=== PATIENT | female | born 1980 | race Caucasian/White ===

== ENCOUNTER → 2017-03-05 | Outpatient (CLI) | payer BC ==
[~2017-03-05] MED LIST: IBUP-1050 PO; MCR25 PO; MCR5 PO; PRENTAB26 PO; SLEEP AID PO
--- NOTE | 2017-03-15 10:25 | HISTORY & PHYSICAL EXAMINATION ---
DATE OF ADMISSION: 03/05/2017 CHIEF COMPLAINT: Numbness down her left leg, pelvic pain, pressure and irregular bleeding. HISTORY OF PRESENT ILLNESS: The patient is a 37-year-old 2, para 1, 1 AB. General health is good. She is on no chronic pills or medication. had a vasectomy for control, has not had a yearly visit for about 5 years, came in with symptoms of pelvic pain, discomfort, irregular spotting and abdominal pressure. Immediately on exam, she had a large pelvic mass which extended up to the level of the umbilicus. An ultrasound done on 03/05/2017 showed a large fibroid of 16.1 x 10.2 x 16.1 cm. The patient is presently being scheduled for a total abdominal hysterectomy with preservation of both ovaries. PAST MEDICAL HISTORY: She has a son age 9. ALLERGIES: CONTROL PILLS, WHICH CAUSED VOMITING. PAST SURGICAL HISTORY: She has had a hernia repair. She has had wisdom teeth removed. She had a D&C. PAST MEDICAL HISTORY: No history of rheumatic fever, heart disease, heart murmur, diabetes, tuberculosis. SOCIAL HISTORY: An occasional smoker. No history of excessive alcohol intake. 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 FAMILY HISTORY: Mom is 58, in good health. Father 63, has diabetes, heart disease. One brother in good health. One sister has Crohn disease. REVIEW OF SYSTEMS: HEAD: No symptoms of frequent or severe headaches. EYES: No symptoms of blurred vision, double vision. EARS: No symptoms of frequent ear infections, difficulty hearing. NOSE: No symptoms of frequent nosebleeds, difficulty breathing through her nose. THROAT: No symptoms of frequent or severe sore throats, difficulty swallowing. RESPIRATORY SYSTEM: No history of asthma, chest pain, shortness of breath. PHYSICAL EXAMINATION: GENERAL: Well-developed, well-nourished 37-year-old white female, alert, oriented x3 and cooperative in no acute distress, appears stated age. EYES: Conjunctivae are pink. Sclerae white. No evidence of jaundice. EARS: Had normal light reflex bilaterally. NOSE: Had normal mucosa. Septum is midline. There were no polyps. THROAT: Had no erythema or evidence of infection. Teeth are in good state of repair. HEAD: Was normocephalic, normal distribution of hair. NECK: Supple. Trachea midline. Thyroid is not enlarged. There is no adenopathy appreciated. Both carotids are of good intensity. CHEST: Clear to auscultation and percussion. No wheezes, rales or rhonchi appreciated. HEART: Regular rhythm. S1 and S2 were normal. BREASTS: Normal. ABDOMEN: Revealed a hard palpable mass up to the level of the umbilicus. PELVIC: Revealed a large hard pelvic mass filling the entire pelvis, cervix appeared normal. MUSCULOSKELETAL: Revealed no calf tenderness. IMPRESSIONS OF THIS CASE: Status post hernia repair, status post removal of wisdom teeth, status post dilation and curettage, symptomatic large uterine fibroids.
== END | disposition home or self-care (01) ==
LOC: C.PAPS 14:53
PROVIDERS: ATTEND Obstetrics & Gynecology
DX: Z01.419 Encounter for gynecological examination (general) (routine) without abnormal findings (principal)

== ENCOUNTER 2017-03-19 11:05 | Inpatient (IN) | payer BC, OTHER ==
--- NOTE | 2017-03-15 10:25 | HISTORY & PHYSICAL EXAMINATION ---
DATE OF ADMISSION: 03/19/2017 CHIEF COMPLAINT: Numbness down her left leg, pelvic pain, pressure and irregular bleeding. HISTORY OF PRESENT ILLNESS: The patient is a 37-year-old 2, para 1, 1 AB. General health is good. She is on no chronic pills or medication. had a vasectomy for control, has not had a yearly visit for about 5 years, came in with symptoms of pelvic pain, discomfort, irregular spotting and abdominal pressure. Immediately on exam, she had a large pelvic mass which extended up to the level of the umbilicus. An ultrasound done on 03/05/2017 showed a large fibroid of 16.1 x 10.2 x 16.1 cm. The patient is presently being scheduled for a total abdominal hysterectomy with preservation of both ovaries. PAST MEDICAL HISTORY: She has a son age 9. ALLERGIES: CONTROL PILLS, WHICH CAUSED VOMITING. PAST SURGICAL HISTORY: She has had a hernia repair. She has had wisdom teeth removed. She had a D&C. PAST MEDICAL HISTORY: No history of rheumatic fever, heart disease, heart murmur, diabetes, tuberculosis. SOCIAL HISTORY: An occasional smoker. No history of excessive alcohol intake. 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 FAMILY HISTORY: Mom is 58, in good health. Father 63, has diabetes, heart disease. One brother in good health. One sister has Crohn disease. REVIEW OF SYSTEMS: HEAD: No symptoms of frequent or severe headaches. EYES: No symptoms of blurred vision, double vision. EARS: No symptoms of frequent ear infections, difficulty hearing. NOSE: No symptoms of frequent nosebleeds, difficulty breathing through her nose. THROAT: No symptoms of frequent or severe sore throats, difficulty swallowing. RESPIRATORY SYSTEM: No history of asthma, chest pain, shortness of breath. PHYSICAL EXAMINATION: GENERAL: Well-developed, well-nourished 37-year-old white female, alert, oriented x3 and cooperative in no acute distress, appears stated age. EYES: Conjunctivae are pink. Sclerae white. No evidence of jaundice. EARS: Had normal light reflex bilaterally. NOSE: Had normal mucosa. Septum is midline. There were no polyps. THROAT: Had no erythema or evidence of infection. Teeth are in good state of repair. HEAD: Was normocephalic, normal distribution of hair. NECK: Supple. Trachea midline. Thyroid is not enlarged. There is no adenopathy appreciated. Both carotids are of good intensity. CHEST: Clear to auscultation and percussion. No wheezes, rales or rhonchi appreciated. HEART: Regular rhythm. S1 and S2 were normal. BREASTS: Normal. ABDOMEN: Revealed a hard palpable mass up to the level of the umbilicus. PELVIC: Revealed a large hard pelvic mass filling the entire pelvis, cervix appeared normal. MUSCULOSKELETAL: Revealed no calf tenderness. IMPRESSIONS OF THIS CASE: Status post hernia repair, status post removal of wisdom teeth, status post dilation and curettage, symptomatic large uterine fibroids. MTDD
[2017-03-15 11:03] VITALS: BMI 37.0
--- NOTE | 2017-03-15 11:38 | PAT Medication Instructions ---
Service Date Mar 15, 2017. Current Home Medication List Ibuprofen (Advil), 600 MG PO PRN [OTC sleep aid], 1 CAP PO Medication Instructions For Your Scheduled Surgery -Contact your surgeon if you plan on taking: Ibuprofen (Advil), 600 MG PO PRN - Take the following medications as scheduled the night before surgery: [OTC sleep aid], 1 CAP PO If you have any questions please call us at [phone] or [phone] or [phone]
[2017-03-15 12:18] LABS: BASO % 0.2 %; BASO ABS # 0.02 K/uL (0-0.2); EOS % 1.6 %; EOS ABS # 0.16 K/uL (0-0.5); HEMATOCRIT 33.8 % (37-47); HEMOGLOBIN 10.3 g/dL (12.0-16.0); IG# 0.01 K/uL (0.00-0.02); LYMPH % 26.4 %; LYMPH ABS # 2.56 K/uL (1.2-3.4); MEAN CELL VOLUME 74.4 fL (80-100); MEAN CORPUSCULAR HEMOGLOBIN 22.7 pg (25-34); MEAN CORPUSCULAR HGB CONC 30.5 g/dl (32-36); MEAN PLATELET VOLUME 9.3 fL (7.4-10.4); MONO % 5.2 %; NEUT % 66.5 %; NEUT ABS # 6.45 K/uL (1.4-6.5); PLATELET COUNT 325 K/uL (130-400); RED CELL DISTRIBUTION WIDTH CV 17.7 % (11.5-14.5); RED CELL DISTRIBUTION WIDTH SD 47.9 fL (36.4-46.3)
[2017-03-15 12:33] LABS: PTT PATIENT 25.4 SECONDS (21.0-31.0)
[2017-03-15 13:36] LABS: CALCIUM 8.9 mg/dl (8.5-10.1); CREATININE 0.56 mg/dl (0.60-1.20)
[~2017-03-19] VITALS: Ht 155.6 cm; Wt 90.6 kg
[2017-03-19] VITALS (10 sets, daily range): BP systolic 91–141; BP diastolic 56–91; PULSE 50–74; TEMP 36.5–36.7; O2SAT 95–99; Ht 155.6 cm; Wt 90.6 kg
[~2017-03-19 11:05] MED LIST changes: +CEFOXITIN IV 2,000 MG in DEXTROSE 5% 50ML 50 ML IV SCH; +LACTATED RINGER'S 1000ML 1,000 ML IV SCH; -MCR25 PO; -MCR5 PO; -PRENTAB26 PO
--- NOTE | 2017-03-19 11:49 | History & Physical Bridge Note ---
H&P Re-Evaluation Bridge Note: I have examined the patient, reviewed the History & Physical and in the interval since the performance of the History & Physical I have noted the following changes of clinical significance: No changes noted
[2017-03-19] MEDS ORDERED: METOPROLOL TARTRATE 1 MG/ML VIAL ONE (12:08)
[2017-03-19] MEDS ORDERED: MIDAZOLAM HCL 1 MG/ML 2ML VIAL ONE (12:09)
[2017-03-19] MEDS ORDERED: PROPOFOL IV EMULSION 10 MG/ML 20 ML VIAL IV ONE (12:10)
[2017-03-19] MEDS ORDERED: DEXAMETHASONE SOD INJ 4 MG/ML VIAL ONE (12:12)
[2017-03-19] MEDS ORDERED: ONDANSETRON INJ 2 MG/ML 2 ML VIAL ONE (12:12)
[2017-03-19] MEDS ORDERED: ROCURONIUM BROMIDE 10 MG/ML 5 ML VIAL IV ONE ×3 (12:12→14:11)
[2017-03-19] MEDS ORDERED: LIDOCAINE HCL 2% 2 ML VIAL (20MG/ML) ONE (12:12)
[2017-03-19] MEDS ORDERED: MORPHINE SULFATE 1MG/1ML 30ML VIAL IV ONE (12:27)
[2017-03-19] MEDS ORDERED: FENTANYL CITRATE INJ 50 MCG/1 ML 2 ML VIAL ONE ×4 (12:46→15:44)
[2017-03-19] MEDS ORDERED: LACTATED RINGER'S 1000ML 500 ML IV PRN (13:53)
[2017-03-19] MEDS ORDERED: NALOXONE HCL INJ 1 MG in SODIUM CHLORIDE 0.9% 1000ML 1,000 ML IV PRN (13:53)
[2017-03-19] MEDS ORDERED: NALOXONE HCL INJ 0.08 MG in SYRINGE 1.8 ML IV PRN (13:53)
[2017-03-19] MEDS ORDERED: SODIUM CHLORIDE 0.9% 1000ML 1,000 ML IV PRN (13:53)
[2017-03-19] MEDS ORDERED: DiphenhydrAMINE HCL 50 MG/ML VIAL IV PRN (14:00)
[2017-03-19] MEDS ORDERED: NALBUPHINE HCL INJ 10 MG/ML AMP IV PRN (14:00)
[2017-03-19] MEDS ORDERED: EpHEDrine SULFATE INJ 50 MG/ML AMP IV PRN ×2 (14:00)
[2017-03-19] MEDS ORDERED: KETOROLAC TROMETHAMINE 30 MG/ML VIAL IV. PRN (14:00)
[2017-03-19] MEDS ORDERED: NO NARCOTICS OR SEDATIVES SCH (14:00)
[2017-03-19] MEDS ORDERED: MoRPHine SULFATE 2 MG/ML CARP IV PRN (14:00)
[2017-03-19] MEDS ORDERED: FENTANYL CITRATE INJ 50 MCG/1 ML 2 ML VIAL IV PRN (14:00)
[2017-03-19] MEDS ORDERED: ONDANSETRON INJ 2 MG/ML 2 ML VIAL IV PRN ×2 (14:00)
[2017-03-19] MEDS ORDERED: NALOXONE HCL 0.4 MG/1 ML VIAL/CARP IV PRN ×2 (14:00)
[2017-03-19] MEDS ORDERED: HYDROmorphone INJ 2 MG/ML SYR/VIAL IV PRN (14:00)
[2017-03-19] MEDS ORDERED: LABETALOL HCL IV 5 MG/ML 20ML IV PRN (14:00)
[2017-03-19] MEDS ORDERED: MoRPHine SULFATE PF 1 MG/ML 10 ML AMP/VIAL EPI PRN (14:00)
[2017-03-19] MEDS ORDERED: PHENYLEPHRINE 100MCG/ML 5ML SYR IV PRN (14:00)
[2017-03-19] MEDS ORDERED: MEPERIDINE HCL 25 MG/ML CARP IV PRN ×2 (14:00)
[2017-03-19] MEDS ORDERED: ATROPINE SULFATE 0.1 MG/ML 5ML SYR IV PRN (14:00)
[2017-03-19] MEDS ORDERED: FLUMAZENIL 0.1 MG/1 ML 10 ML VIAL IV PRN (14:00)
[2017-03-19] MEDS ORDERED: NEOSTIGMINE METHYLSULFATE 5 MG/5 ML SYR ONE (14:47)
[2017-03-19] MEDS ORDERED: GLYCOPYRROLATE INJ 0.2 MG/ML VIAL ONE (14:47)
[2017-03-19] MEDS ORDERED: ACETAMINOPHEN 1000 MG/100 ML IV IV ONE (14:58)
[2017-03-19] MEDS ORDERED: D5W AND LACTATED RINGERS 1,000 ML IV SCH (15:51)
--- NOTE | 2017-03-19 15:56 | [facility] Post Operative Brief Note ---
Immediate Operative Summary Operative Date Mar 19, 2017. Pre-Operative Diagnosis Symptomatic Large Uterine Fibroids Post-Operative Diagnosis Large uterine fibroid, Endometrioma of cul de sac Procedure(s) Performed Total Abdominal Hysterectomy Surgeon Dr. Rivera Oil Dispatcher Surgeon(s) Dr. Robles Estimated Blood Loss 400ml Findings Consistent with Post-Op Diagnosis endometrioma cul de sac Specimens a. uterus/cervix sent at 1520 to lab Drains avel drain in the vaginal cuff Anesthesia Type General Regional Complication(s) none Disposition Disposition: Recovery Room / PACU
[2017-03-19] MEDS ORDERED: SENNA 8.6 MG TAB PO PRN (16:00)
[2017-03-19] MEDS ORDERED: BISACODYL 10 MG SUPP PR PRN (16:00)
[2017-03-19] MEDS ORDERED: MAGNESIUM HYDROXIDE SUSP 30 ML UDC PO PRN (16:00)
[2017-03-19] MEDS ORDERED: HYDROmorphone INJ 1 MG/ML SYR ONE (16:20)
--- NOTE | 2017-03-19 16:52 | Anesthesiology Progress Note ---
Anesthesia Post Op Note Date & Time Mar 19, 2017 at 16:52 Vital Signs Pain Intensity: 3 Vital Signs Past 12 Hours Date Time Temp Pulse Resp B/P (MAP) Pulse Ox O2 Delivery O2 Flow Rate FiO2 03/19/17 16:26 115/64 03/19/17 16:23 58 17 98 03/19/17 16:23 58 17 03/19/17 16:21 117/59 03/19/17 16:18 55 26 03/19/17 16:18 54 26 95 03/19/17 16:16 116/68 03/19/17 16:13 56 21 03/19/17 16:13 56 21 98 03/19/17 16:11 118/74 03/19/17 16:08 56 20 97 03/19/17 16:08 56 20 03/19/17 16:07 56 17 98 03/19/17 16:07 55 17 03/19/17 16:07 56 17 98 03/19/17 16:07 55 17 03/19/17 16:06 115/78 03/19/17 16:06 115/78 03/19/17 16:02 60 17 03/19/17 16:02 60 17 97 03/19/17 16:02 60 17 97 03/19/17 16:02 60 17 03/19/17 16:01 127/76 03/19/17 16:01 127/76 03/19/17 15:57 71 17 03/19/17 15:57 70 17 100 03/19/17 15:57 71 17 03/19/17 15:57 70 17 100 03/19/17 15:56 130/68 03/19/17 15:56 130/68 03/19/17 15:52 65 129 03/19/17 15:52 65 129 03/19/17 15:52 65 129 98 03/19/17 15:52 65 129 98 03/19/17 15:50 113/67 03/19/17 15:50 113/67 03/19/17 15:49 36.4 61 8 113/67 95 Oxymask 10 03/19/17 15:49 110/63 03/19/17 15:49 110/63 03/19/17 11:26 36.7 74 16 141/91 98 Room Air Notes Mental Status: alert / awake / arousable, participated in evaluation Pt Amnestic to Procedure: Yes Nausea / Vomiting: adequately controlled Pain: adequately controlled Airway Patency, RR, SpO2: stable & adequate BP & HR: stable & adequate Hydration State: stable & adequate Anesthetic Complications: no major complications apparent
--- NOTE | 2017-03-19 18:16 | OPERATIVE REPORT ---
DATE OF OPERATION: 03/19/2017 PROCEDURE: Total abdominal hysterectomy, suspension of vaginal cuff. SURGEON: Dr. Rivera. CONCRETE PRECAST MOULDER: Dr. Robles. ESTIMATED BLOOD LOSS: 400 mL. ANESTHESIA: General with spinal narcotics. OPERATIVE FINDINGS AND PROCEDURE: The patient was brought to the OR table, correctly identified by armband and conversation. Perineum and vagina were painted with Betadine solution. A Presley catheter was inserted aseptically in the bladder connected to gravity drainage. Compression stockings were applied. The lower abdomen up to the chest was painted with an alcohol based sterilizing solution, draped in usual sterile fashion. Pelvic mass was palpable at the level of the umbilicus. A midline incision was made and carried down to the anterior fascia by sharp dissection. Hemostasis was secured by electrocauterization. The fascia was incised in the midline. The recti muscles were . Peritoneum was carefully raised and entered. A large fibroid uterus could barely be delivered through the incision. We had actually extended the incision by cutting the fascia up around the umbilicus. We then used an O'Dago-O'Suárez self-retaining retractor to help provide adequate exposure. Exposure was extremely difficult, the fibroid was very vascular. We had to ligate the round ligaments on either side distally and proximally cut them and then ligate the stumps of the ovarian ligament and tube distally and proximally with silk ties, cut them. We had trouble with the stumps bleeding both the distal and proximal stumps and lost a little bit more than average blood. We then used blunt dissection to push the uterine vessels down. We made an incision above the vesicouterine fold, advanced the bladder out of the operative field and struggled to lift the uterus out of the pelvis, it was somewhat fixed, but we were able to get down around the base of the fibroid right up against the cervix on both the right and left side and doubly clamped with large Karli clamps. We then triply ligated the stumps and then cut them. Hemostasis was now good. We used an electric knife to excise the specimen consisting of the fundus to the uterus with the huge fibroids. Now we were able to visualize the cervix. We grasped the cervix with a double tooth tenaculum and that there was a good 2-3 inches of cervix left; however, the sigmoid colon was attached to the posterior portion of the cervix due to a large endometrioma. We cut the peritoneum posteriorly and anteriorly, advanced the bladder off and dissected posteriorly and then used an electric knife to enter the vagina anteriorly and then carried around the cervix, thus excising the cervix. We were safe distance from the bowel. We then suture ligated the angles of the vaginal cuff to the stumps of the cardinal ligaments on each side with a chromic gut suture. We then approximated the anterior and posterior vaginal cuff on each angle with a chromic gut suture. whipstitched open the center of the vaginal cuff and then put a Nelson drain with a safety pin in through it for drainage. Also, there was a part of an endometrioma posteriorly in the vagina, we just drained it by making a hole with an electric knife and then suctioned out the chocolate fluid. Following this, we religated the stumps of the adnexa then suture ligated the round ligaments into the vaginal cuff and tied them up then approximated the peritoneum front to back from the right adnexa to the center, thus elevating the adnexa out of the cul-de-sac and the same thing from the left side to the center and then tied the 2 sutures together. The end of the Nelson drain was in the cul-de-sac. We washed everything clear. Hemostasis was good. We removed all the packs, careful anatomical approximation of the anterior abdominal wall was performed. Peritoneum was closed with a mattress suture of chromic catgut, fascia was closed with a running suture of PDS, one suture anchored at the bottom of the defect, the other anchored at the top of the defect, wide lateral bites run from the top to the middle and from the bottom up to the middle and then tied to each other. SubQ was approximated with a running plain. Skin edges were approximated with a mattress silk and emilie. I attest to the content of the Intraoperative Record and any orders documented therein. Any exception s are noted below.
[2017-03-19] MEDS ORDERED: IV FLUIDS COMPLETED PRN (23:45)
[2017-03-20] VITALS (12 sets, daily range): BP systolic 109–121; BP diastolic 68–73; PULSE 62–76; TEMP 36.7–36.8; O2SAT 96–98
[2017-03-20] MEDS ORDERED: DC INTRASPINAL MORPHINE ONE (06:30)
[2017-03-20] MEDS ORDERED: KETOROLAC TROMETHAMINE 30 MG/ML VIAL IV. PRN (06:31)
[2017-03-20] MEDS ORDERED: MEPERIDINE HCL 50 MG/ML CARP IV PRN ×2 (06:31)
[2017-03-20 06:36] LABS: HEMATOCRIT 32.9 % (37-47); HEMOGLOBIN 9.8 g/dL (12.0-16.0); IG# 0.02 K/uL (0.00-0.02); LYMPH % 11.8 %; MEAN CELL VOLUME 75.1 fL (80-100); MEAN CORPUSCULAR HEMOGLOBIN 22.4 pg (25-34); MEAN CORPUSCULAR HGB CONC 29.8 g/dl (32-36); MEAN PLATELET VOLUME 9.1 fL (7.4-10.4); MONO % 5.1 %; NEUT % 82.9 %; PLATELET COUNT 309 K/uL (130-400); RED CELL DISTRIBUTION WIDTH CV 17.6 % (11.5-14.5); RED CELL DISTRIBUTION WIDTH SD 48.5 fL (36.4-46.3); WHITE BLOOD COUNT 11.82 K/uL (4.8-10.8)
--- NOTE | 2017-03-20 09:14 | Progress Note ---
Subjective Mar 20, 2017. Subjective conversation w/ patient Ambulation: ambulating normally Voiding: no voiding problems Passing Gas: Yes Diet Tolerance: Clear Liquids Lochia: Small Review of Systems Constitutional: + fever Objective Vital Signs Date Time Temp Pulse Resp B/P (MAP) Pulse Ox O2 Delivery O2 Flow Rate FiO2 03/20/17 08:00 96 Room Air 03/20/17 06:00 20 98 03/20/17 05:00 20 98 03/20/17 04:00 20 98 03/20/17 03:00 36.7 62 20 109/69 (82) Room Air 03/20/17 03:00 98 Nasal Cannula 2.0 03/20/17 02:00 20 98 03/20/17 01:00 20 98 03/20/17 00:00 20 98 03/19/17 23:30 Nasal Cannula 2.0 03/19/17 23:30 36.5 50 20 105/66 (79) Room Air 03/19/17 22:16 18 96 03/19/17 21:15 18 96 03/19/17 20:15 16 96 03/19/17 20:15 36.5 53 16 100/65 (77) 96 Nasal Cannula 2.0 03/19/17 19:15 18 97 03/19/17 19:15 59 18 105/71 (82) 97 Room Air 03/19/17 18:15 16 95 03/19/17 18:15 54 16 108/70 (83) 95 Nasal Cannula 2.0 03/19/17 17:45 54 20 91/56 (68) 95 Nasal Cannula 2.0 03/19/17 17:15 96 Nasal Cannula 2.0 03/19/17 17:15 20 96 03/19/17 17:15 96 Nasal Cannula 2.0 03/19/17 17:15 36.5 62 20 102/66 (78) 96 Room Air 03/19/17 17:02 54 21 03/19/17 17:02 55 21 97 03/19/17 17:01 107/61 03/19/17 16:57 51 19 99 03/19/17 16:57 52 19 03/19/17 16:56 111/59 03/19/17 16:52 53 15 03/19/17 16:52 53 15 97 03/19/17 16:51 109/62 03/19/17 16:48 36.4 51 17 109/62 (71) 96 Nasal Cannula 2 03/19/17 16:47 54 24 03/19/17 16:47 54 24 97 03/19/17 16:46 106/63 03/19/17 16:42 52 11 96 03/19/17 16:42 52 11 03/19/17 16:41 109/63 03/19/17 16:37 52 14 03/19/17 16:37 53 14 94 03/19/17 16:36 113/66 03/19/17 16:32 88 17 96 03/19/17 16:32 79 17 03/19/17 16:31 109/70 03/19/17 16:27 62 16 03/19/17 16:27 61 16 97 03/19/17 16:26 115/64 03/19/17 16:23 58 17 98 03/19/17 16:23 58 17 03/19/17 16:21 117/59 03/19/17 16:18 55 26 03/19/17 16:18 54 26 95 03/19/17 16:16 116/68 03/19/17 16:13 56 21 03/19/17 16:13 56 21 98 03/19/17 16:11 118/74 03/19/17 16:08 56 20 97 03/19/17 16:08 56 20 03/19/17 16:07 56 17 98 03/19/17 16:07 55 17 03/19/17 16:07 56 17 98 03/19/17 16:07 55 17 03/19/17 16:06 115/78 03/19/17 16:06 115/78 03/19/17 16:02 60 17 03/19/17 16:02 60 17 97 03/19/17 16:02 60 17 97 03/19/17 16:02 60 17 03/19/17 16:01 127/76 03/19/17 16:01 127/76 03/19/17 15:57 71 17 03/19/17 15:57 70 17 100 03/19/17 15:57 71 17 03/19/17 15:57 70 17 100 03/19/17 15:56 130/68 03/19/17 15:56 130/68 03/19/17 15:52 65 129 03/19/17 15:52 65 129 03/19/17 15:52 65 129 98 03/19/17 15:52 65 129 98 03/19/17 15:50 113/67 03/19/17 15:50 113/67 03/19/17 15:49 36.4 61 8 113/67 95 Oxymask 10 03/19/17 15:49 110/63 03/19/17 15:49 110/63 03/19/17 11:30 36.5 50 20 105/66 (79) 99 Nasal Cannula 2.0 03/19/17 11:26 36.7 74 16 141/91 98 Room Air Physical Exam General Appearance: WELL-APPEARING Respiratory/Chest: lungs clear Abdomen: non tender, + abnormal bowel sounds Incision Description: Clean, Dry & Intact Extremities: no pedal edema, no calf tenderness Laboratory Results Last 24 Hours Test 03/20/17 06:23 White Blood Count 11.82 K/uL Red Blood Count 4.38 M/uL Hemoglobin 9.8 g/dL Hematocrit 32.9 % Mean Corpuscular Volume 75.1 fL Mean Corpuscular Hemoglobin 22.4 pg Mean Corpuscular Hemoglobin Concent 29.8 g/dl Platelet Count 309 K/uL Mean Platelet Volume 9.1 fL Neutrophils (%) (Auto) 82.9 % Lymphocytes (%) (Auto) 11.8 % Monocytes (%) (Auto) 5.1 % Eosinophils (%) (Auto) 0.0 % Basophils (%) (Auto) 0.0 % Neutrophils # (Auto) 9.80 K/uL Lymphocytes # (Auto) 1.40 K/uL Monocytes # (Auto) 0.60 K/uL Eosinophils # (Auto) 0.00 K/uL Basophils # (Auto) 0.00 K/uL RDW Standard Deviation 48.5 fL RDW Coefficient of Variation 17.6 % Immature Granulocyte % (Auto) 0.2 % Immature Granulocyte # (Auto) 0.02 K/uL Assessment and Plan Post-Op Day#: 1 Continue Routine Care: bandage removed hypoactive bowel sounds
[2017-03-20] MEDS: ONDANSETRON INJ 2 MG/ML 2 ML VIAL IV PRN (11:47)
[2017-03-20] MEDS: IBUPROFEN 600 MG TAB PO PRN (11:49)
[2017-03-20] MEDS: OXYCODONE/ACETAMINOPHEN 5-325 TAB PO PRN (11:53)
[2017-03-21] MEDS: IBUPROFEN 600 MG TAB PO PRN ×3 (02:50→20:57)
[2017-03-21] MEDS: ONDANSETRON INJ 2 MG/ML 2 ML VIAL IV PRN (02:51)
[2017-03-21] MEDS: OXYCODONE/ACETAMINOPHEN 5-325 TAB PO PRN ×2 (03:27→20:59)
[2017-03-21 06:49] LABS: BASO % 0.2 %; BASO ABS # 0.02 K/uL (0-0.2); EOS % 0.8 %; EOS ABS # 0.07 K/uL (0-0.5); HEMATOCRIT 26.8 % (37-47); HEMOGLOBIN 8.2 g/dL (12.0-16.0); IG# 0.02 K/uL (0.00-0.02); LYMPH % 31.6 %; LYMPH ABS # 2.93 K/uL (1.2-3.4); MEAN CELL VOLUME 75.1 fL (80-100); MEAN CORPUSCULAR HGB CONC 30.6 g/dl (32-36); MONO ABS # 0.56 K/uL (0.11-0.59); NEUT % 61.2 %; NEUT ABS # 5.68 K/uL (1.4-6.5); PLATELET COUNT 276 K/uL (130-400); RED CELL DISTRIBUTION WIDTH SD 49.3 fL (36.4-46.3); WHITE BLOOD COUNT 9.28 K/uL (4.8-10.8)
[2017-03-21 07:55] VITALS: BP 126/89; PULSE 65; TEMP 36.7; O2SAT 97
--- NOTE | 2017-03-21 10:48 | Progress Note ---
Subjective Mar 21, 2017. Subjective conversation w/ patient Ambulation: ambulating normally Voiding: no voiding problems Passing Gas: Yes Diet Tolerance: Regular Diet Lochia: Small Review of Systems Constitutional: + fever Objective Vital Signs Date Time Temp Pulse Resp B/P (MAP) Pulse Ox O2 Delivery O2 Flow Rate FiO2 03/21/17 07:55 65 16 126/89 (101) 97 Room Air 03/21/17 07:55 Room Air 03/20/17 23:20 98 Nasal Cannula 2.0 03/20/17 17:14 97 Room Air 03/20/17 16:10 Room Air 03/20/17 16:10 36.8 76 18 112/73 (86) Room Air 03/20/17 11:50 36.7 68 18 120/68 (85) 98 Room Air Physical Exam General Appearance: WELL-APPEARING Respiratory/Chest: lungs clear Abdomen: normal bowel sounds, non tender Incision Description: Clean, Dry & Intact Extremities: no pedal edema, no calf tenderness Laboratory Results Last 24 Hours Test 03/21/17 06:19 White Blood Count 9.28 K/uL Red Blood Count 3.57 M/uL Hemoglobin 8.2 g/dL Hematocrit 26.8 % Mean Corpuscular Volume 75.1 fL Mean Corpuscular Hemoglobin 23.0 pg Mean Corpuscular Hemoglobin Concent 30.6 g/dl Platelet Count 276 K/uL Mean Platelet Volume 9.0 fL Neutrophils (%) (Auto) 61.2 % Lymphocytes (%) (Auto) 31.6 % Monocytes (%) (Auto) 6.0 % Eosinophils (%) (Auto) 0.8 % Basophils (%) (Auto) 0.2 % Neutrophils # (Auto) 5.68 K/uL Lymphocytes # (Auto) 2.93 K/uL Monocytes # (Auto) 0.56 K/uL Eosinophils # (Auto) 0.07 K/uL Basophils # (Auto) 0.02 K/uL RDW Standard Deviation 49.3 fL RDW Coefficient of Variation 18.0 % Immature Granulocyte % (Auto) 0.2 % Immature Granulocyte # (Auto) 0.02 K/uL Hypochromasia PRESENT Anisocytosis PRESENT Assessment and Plan Post-Op Day#: 2 Continue Routine Care: avel drain removed hgb 8.2
[2017-03-21] MEDS: SIMETHICONE 80 MG CHEW PO PRN ×2 (13:14→20:57)
[2017-03-21 15:30] VITALS: BP 131/84; PULSE 75; TEMP 36.5; O2SAT 97
[2017-03-22 00:45] VITALS: BP 127/79; PULSE 76; TEMP 36.5; O2SAT 98
[2017-03-22 04:20] VITALS: BP 117/76; PULSE 63; TEMP 36.5; O2SAT 97
[2017-03-22 08:25] VITALS: BP 121/78; PULSE 62; TEMP 36.9; O2SAT 97
[2017-03-22] MEDS: IBUPROFEN 600 MG TAB PO PRN (08:40)
[2017-03-22] MEDS: SIMETHICONE 80 MG CHEW PO PRN (08:42)
--- NOTE | 2017-03-22 09:26 | Progress Note ---
Subjective Mar 22, 2017. Subjective conversation w/ patient Ambulation: ambulating normally Voiding: no voiding problems Passing Gas: Yes Diet Tolerance: Regular Diet Lochia: Small Review of Systems Constitutional: + fever Objective Vital Signs Date Time Temp Pulse Resp B/P (MAP) Pulse Ox O2 Delivery O2 Flow Rate FiO2 03/22/17 04:20 36.5 63 16 117/76 (90) 97 Room Air 03/22/17 00:45 36.5 76 18 127/79 (95) 98 Room Air 03/22/17 00:45 98 Room Air 03/21/17 15:30 36.5 75 18 131/84 (100) 97 Room Air 03/21/17 15:30 Room Air Physical Exam General Appearance: WELL-APPEARING Respiratory/Chest: lungs clear Abdomen: normal bowel sounds, non tender Incision Description: Clean, Dry & Intact Extremities: no pedal edema, no calf tenderness Assessment and Plan Post-Op Day#: 3
--- NOTE | 2017-03-22 09:28 | Discharge Instructions ---
Discharge Instructions Date of Service Mar 22, 2017. Admission Reason for Admission: Large Uterine Fibroid Discharge Discharge Diagnosis / Problem: hgb 8.2 large fibroid Discharge Goals Goal(s): Routine recovery after surgery Activity Recommendations Activity Limitations: as noted below ACTIVITY RECOMMENDATIONS: * Gradual return to full activity over next 2-3 weeks. * No heavy lifting over next 2-3 weeks. * Nothing in the vagina (no intercourse, tampons, or douching) for 4 weeks * You may walk up and down steps as necessary. * You may drive a car in 2 weeks. * Hot shower or tub bath daily. SPECIAL CARE INSTRUCTIONS: * Check temperature twice daily for one week. Report any elevation over 100.4 degrees Fahrenheit (38.0 degrees Celsius). * Call your doctor if bleeding becomes heavier than the heaviest part of your period - saturating a sanitary pad within an hour. * If you develop a red, hard, warm swollen lump on your incision or if you develop any separation of or drainage from your incision, notify your doctor. . Current Hospital Diet Patient's current hospital diet: Regular Diet Discharge Diet Recommended Diet: Regular Diet Procedures Procedures Performed: Total Abdominal Hysterectomy Pending Studies Studies pending at discharge: no Medical Emergencies . Who to Call and When: Medical Emergencies: If at any time you feel your situation is an emergency, please call 911 immediately. . Non-Emergent Contact Non-Emergency issues call your: Rice Cleaning Machine Tender Call Non-Emergent contact if: temperature is above 100.5 . . "Provider Documentation" section prepared by Foreign Rivera. . VTE Core Measure Inpt VTE Proph given/why not?: Treatment not indicated
--- NOTE | 2017-03-22 09:45 | DISCHARGE SUMMARY ---
Sasha Amaya, 37-year-old 2, para 1 admitted for a large symptomatic uterine fibroid which was causing heavy vaginal bleeding, pelvic pain and pressure and actually pain down her leg. Her preoperative hemoglobin was 10.3, hematocrit 33.8. The day of admission, she was taken to the OR where through a midline incision, an extremely large fibroid uterus was delivered and then removed along with the cervix, both ovaries were left in. There was an endometrioma in the cul-de-sac which involved the large bowel was partially drained at the time of surgery. A Forrest drain was placed in the vaginal cuff. Postoperatively, her hemoglobin fell to 8.2, hematocrit 26.8. It did require about 2 days for bowel sounds to return to normal. She remained afebrile throughout her postoperative course. At the time of discharge, she was ambulating well, eating well, passing gas. Pain was well controlled with a combination of Percocet and Motrin. The pathology report came back and it revealed a benign fibroid over 1200 grams, 19 cm in length. She was given prescriptions for Percocet and Motrin for pain control and told to call the office if she had a temperature over 100 or any heavy vaginal bleeding, return to the office for emilie.
[2017-03-22 10:23] VITALS: BP 121/78; PULSE 62; TEMP 36.9; O2SAT 97
== END 2017-03-22 12:05 | disposition home or self-care (01) | DRG 743 ==
LOC: C.ACU 11:05 → C.OBG 15:54 → ENRESERV 16:44 → OBSVTOIN 18:59
PROVIDERS: ADMIT Obstetrics & Gynecology; ATTEND Obstetrics & Gynecology
PROC: 0UT90ZZ Resection of Uterus, Open Approach (ICD-10-PCS; principal; 2017-03-19 12:30)
PROC: 0UTC0ZZ Resection of Cervix, Open Approach (ICD-10-PCS; principal; 2017-03-19 12:30)
DX: D25.9 Leiomyoma of uterus, unspecified (principal); N80.9 Endometriosis, unspecified

== ENCOUNTER 2024-07-01 10:43 | Inpatient (IN) ==
--- NOTE | 2024-07-01 11:08 | Emergency Department Note ---
Impression & Plan Shingles, Vomiting, Abdominal pain, Chest pain, Back pain ED Provider Note NAME: OLGA GUTIERREZ AGE: 44 SEX: F : 1980 ARRIVES VIA: Walk-In INFORMANT: Patient ED PROVIDER(S): Eduardo Vela DO CHIEF COMPLAINT: Nausea, vomiting, abdominal pain HPI: Patient is a 44-year-old female with a past medical history of fibroids who presents to the ER for initially a rash which started last about 5 days ago. Rash initially started on the back and is on the left anterior chest wall. She notes it is painful. Feels like the whole left side hurts in a strip. Does hurt to light touch. Denies any chest pain or shortness of breath other than the pain on the left upper chest with the rashes. Admits to belly pain associate with nausea and vomiting. She has been unable to keep any liquids down or food down. She notes that she has not left bed in the past 4 to 5 days. She was seen at [place] as well as her PCP. No dysuria, urgency, or frequency. No other exacerbating or remitting factors. She also does admit to a headache. No neck stiffness. She feels very weak and rundown. ADDITIONAL HISTORY OBTAINED: Friend who is present bedside notes that the patient feels unsafe being at home. Chronic Medical/Social Conditions Affecting Care: Per HPI PAST MEDICAL HISTORY:See Below PAST SURGICAL HISTORY:See Below FAMILY HISTORY:See Below SOCIAL HISTORY:See Below HOME MEDICATIONS:See Below ALLERGIES:See Below VITALS:See Below PHYSICAL EXAMINATION: GENERAL: Sitting up in bed, alert, well appearing, well nourished, no distress, non-toxic EYE EXAM: normal conjunctiva. PERRL and EOM's grossly intact. OROPHARYNX: mucous membranes are moist NECK: supple, no nuchal rigidity, no adenopathy, non-tender LUNGS: Clear to auscultation. Normal chest wall mechanics HEART: no murmurs, S1 normal and S2 normal ABDOMEN: abdomen soft, non-tender, normo-active bowel sounds, no masses, no rebound or guarding. BACK: Back is symmetrical on inspection and there is no deformity, no midline tenderness, no CVA tenderness. SKIN: Rash over the left breast she does appear to be slightly vesicle in nature and a small subtle rash on the left back with erythematous base UPPER EXTREMITIES: upper extremities are grossly normal. LOWER EXTREMITIES: No pitting edema. NEURO EXAM: Normal sensorium, cranial nerves II-XII grossly intact, normal speech, no gross weakness of arms, no gross weakness of legs. MEDICAL DECISION MAKING: Patient is a 44-year-old female who presents to the ER for multiple complaints which include back pain, chest pain, abdominal pain, nausea vomiting, weakness, diffuse myalgias arthralgias and a headache. IV was established and blood work was obtained. Labs showed faint leukocytosis but no anemia. BMP with mild hypokalemia 3.2. LFTs bilirubin and lipase was unremarkable. UA was clean. was negative. Lyme was negative. On exam patient does appear to have area of erythema on the left chest wrapping around to the left back with some vesicles and some scabbed over regions which I believe is consistent with shingles. Patient was given oral valacyclovir. Ordered IV potassium. Patient was also given fluids, IV Zofran and IV Phenergan. She was also given IV Toradol. She does not take any blood thinners. Case was discussed with the hospitalist for further evaluation management treatment. She initially declined an LP but eventually was agreeable after discussion in agreement that this would be done under IR with only 1 stick. Patient has had no fevers or nuchal rigidity however I do feel this is prudent as she has a headache with persistent vomiting. I discussed with Emiliano Murillo from interventional radiology and he will take her over. Case was discussed with Tobi Torre for admission and further evaluation. Please see the hospitalist note for further details. Consults/Care Managements Discussions: Per MDM Triage Nursing notes reviewed. Limited review of prior medical records performed Vital Signs: reviewed and remarkable for no significant abnormalities Differential diagnosis: Differential diagnoses includes but is not limited to gastritis, peptic ulcer disease, GERD, gallbladder disease, pancreatitis, small bowel obstruction, appendicitis, diverticulitis, hernia, urinary tract infection, torsion, /ectopic (if female), perforation, trauma, infectious. ER treatment provided: See below Diagnostics interpreted by me include EKG and cardiac monitoring as listed below: -Cardiac Monitoring: An order was placed for continuous cardiac monitoring. The monitor shows a rate of 70 with sinus rhythm. -ECG: none -Laboratory studies:Interpreted by me as stated above in MDM and shown below. Imaging studies: Xrays: As interpreted by me:none CTs show: CT head was negative per radiology CT abdomen pelvis showed no acute pathology Procedures:none Critical Care: None Past Med/Surg History Problem List (Updated 07/01/24 @ 14:51 by Eduardo Vela DO) Back pain (Acute) Chest pain (Acute) Abdominal pain (Acute) Vomiting (Acute) Shingles (Acute) Rash Nausea & vomiting Failure to thrive in adult Fibroids Heavy menstrual bleeding Social History Smoking Status: Former smoker Preferred Language: Austrian Feels Safe at Home: Yes Allergies Allergies Allergy/AdvReac Type Severity Reaction Status Date / Time nickel Allergy Unknown Unknown - Unverified 07/01/24 14:32 Pt states allergic to a metal. Not sure which one. ethinyl estradiol AdvReac Intermediate NAUSEA AND Verified 07/01/24 14:32 VOMITING norgestimate AdvReac Intermediate NAUSEA AND Verified 07/01/24 14:32 VOMITING latex AdvReac Mild SKIN Verified 07/01/24 14:32 IRRITATION Home Meds Home Medications Medication Instructions Recorded Confirmed ondansetron 4 mg disintegrating 4 mg translingual Q8H PRN Nausea 07/01/24 07/01/24 tablet And Vomiting Results & Data (ED) Vital Signs Vital Signs - 24 hr 07/01/24 10:45 07/01/24 10:53 07/01/24 11:39 Temperature 36.7 C Temperature Source Temporal Artery Scan Pulse Rate 67 68 Pulse Rate [Left] 68 Pulse Rate from SpO2 Sensor Respiratory Rate 14 20 20 Blood Pressure 126/91 Blood Pressure [Left Arm] 143/87 H Blood Pressure Mean 102 Blood Pressure Mean [Left Arm] 105 Pulse Oximetry 98 96 96 Oxygen Delivery Method Room Air Room Air Room Air Sepsis New/Unexplained Change in Mental Status No Sepsis Action Taken by Nursing No Action Required 07/01/24 12:20 07/01/24 12:42 07/01/24 13:00 Temperature Temperature Source Pulse Rate 59 L 59 L 61 Pulse Rate [Left] Pulse Rate from SpO2 Sensor 61 59 L Respiratory Rate 18 23 Blood Pressure 134/83 Blood Pressure [Left Arm] Blood Pressure Mean 100 Blood Pressure Mean [Left Arm] Pulse Oximetry 99 96 Oxygen Delivery Method Sepsis New/Unexplained Change in Mental Status Sepsis Action Taken by Nursing 07/01/24 13:00 07/01/24 13:00 07/01/24 13:00 Temperature Temperature Source Pulse Rate Pulse Rate [Left] Pulse Rate from SpO2 Sensor Respiratory Rate Blood Pressure 138/92 138/92 138/92 Blood Pressure [Left Arm] Blood Pressure Mean 99 99 99 Blood Pressure Mean [Left Arm] Pulse Oximetry Oxygen Delivery Method Sepsis New/Unexplained Change in Mental Status Sepsis Action Taken by Nursing 07/01/24 13:21 Temperature Temperature Source Pulse Rate 58 L Pulse Rate [Left] Pulse Rate from SpO2 Sensor 59 L Respiratory Rate 18 Blood Pressure Blood Pressure [Left Arm] Blood Pressure Mean Blood Pressure Mean [Left Arm] Pulse Oximetry 96 Oxygen Delivery Method Sepsis New/Unexplained Change in Mental Status Sepsis Action Taken by Nursing Laboratory Data 07/01/24 11:13 07/01/24 12:10 Lab Results 07/01/24 07/01/24 07/01/24 Range/Units 10:53 11:13 11:20 WBC 11.31 H (4.8-10.8) K/ul RBC 5.21 (4.20-5.40) M/uL Hgb 16.0 (12.0-16.0) g/dl Hct 45.3 (37.0-47.0) % MCV 86.9 (80.0-100.0) fL MCH 30.7 (25.0-34.0) pg MCHC 35.3 (32.0-36.0) g/dL RDW Std Deviation 39.3 (36.4-46.3) fL RDW Coeff of Mesfin 12.5 (11.5-14.5) % Plt Count 302 (130-400) K/uL MPV 9.1 L (9.4-12.4) fL Immature Gran % (Auto) 0.4 % Neut % (Auto) 78.4 % Lymph % (Auto) 14.4 % Grant % (Auto) 5.9 % Eos % (Auto) 0.5 % Baso % (Auto) 0.4 % Neut # (Auto) 8.85 H (1.40-6.50) K/uL Lymph # (Auto) 1.63 (1.20-3.40) K/uL Grant # (Auto) 0.67 H (0.11-0.59) K/uL Eos # (Auto) 0.06 (0.00-0.50) K/uL Baso # (Auto) 0.05 (0.00-0.20) K/uL Immature Gran # (Auto) 0.05 (0.01-0.20) K/uL Sodium 135 L (136-145) mmol/L Potassium TNP Chloride 98 (98-107) mmol/L Carbon Dioxide 25 (21-32) mmol/L Anion Gap 12 H (3-11) BUN 8 (6-23) mg/dl Creatinine 0.58 L (0.6-1.2) mg/dl Est Cr Clr Drug Dosing 127.6 ml/min eGFR 114.37 BUN/Creatinine Ratio 13.8 (10-20) Glucose 74 (70-99(Fasting)) mg/dl Calcium 9.2 (8.6-10.3) mg/dl Total Bilirubin 0.6 (0.2-1.0) mg/dl AST TNP ALT 15 (7-52) U/L Alkaline Phosphatase 86 (34-104) U/L Total Protein 8.2 (6.0-8.3) gm/dl Albumin 4.3 (3.4-5.0) gm/dl Globulin 3.9 (2.5-4.0) gm/dl Albumin/Globulin Ratio 1.1 (0.9-2) Lipase 11 (11-82) U/L Urine Color Yellow Urine Appearance Clear (Clear) Urine pH 6.0 (4.5-7.5) Ur Specific Nelson 1.021 (1.000-1.030) Urine Protein 1+ H (Negative) Urine Glucose (UA) Negative (Negative) Urine Ketones 4+ H (Negative) Urine Blood 1+ H (Negative) Urine Nitrite Negative (Negative) Urine Bilirubin Negative (Negative) Urine Urobilinogen Positive H (Negative) Ur Leukocyte Esterase Negative (Negative) Urine WBC (Auto) 0-5 (0-5) /hpf Urine RBC (Auto) 6-10 H (0-2) /hpf U Hyaline Cast (Auto) 0-2 (0-2) /lpf U Epithel Cells (Auto) 6-10 H (0-2) /hpf Urine Bacteria (Auto) 2+ H (None Seen) POC Ur Test NEG (NEG) Urine Comment Lyme Disease Screen Cancelled 07/01/24 07/01/24 Range/Units 12:10 12:17 WBC (4.8-10.8) K/ul RBC (4.20-5.40) M/uL Hgb (12.0-16.0) g/dl Hct (37.0-47.0) % MCV (80.0-100.0) fL MCH (25.0-34.0) pg MCHC (32.0-36.0) g/dL RDW Std Deviation (36.4-46.3) fL RDW Coeff of Mesfin (11.5-14.5) % Plt Count (130-400) K/uL MPV (9.4-12.4) fL Immature Gran % (Auto) % Neut % (Auto) % Lymph % (Auto) % Grant % (Auto) % Eos % (Auto) % Baso % (Auto) % Neut # (Auto) (1.40-6.50) K/uL Lymph # (Auto) (1.20-3.40) K/uL Grant # (Auto) (0.11-0.59) K/uL Eos # (Auto) (0.00-0.50) K/uL Baso # (Auto) (0.00-0.20) K/uL Immature Gran # (Auto) (0.01-0.20) K/uL Sodium (136-145) mmol/L Potassium 3.2 L Chloride (98-107) mmol/L Carbon Dioxide (21-32) mmol/L Anion Gap (3-11) BUN (6-23) mg/dl Creatinine (0.6-1.2) mg/dl Est Cr Clr Drug Dosing ml/min eGFR BUN/Creatinine Ratio (10-20) Glucose (70-99(Fasting)) mg/dl Calcium (8.6-10.3) mg/dl Total Bilirubin (0.2-1.0) mg/dl AST 19 ALT (7-52) U/L Alkaline Phosphatase (34-104) U/L Total Protein (6.0-8.3) gm/dl Albumin (3.4-5.0) gm/dl Globulin (2.5-4.0) gm/dl Albumin/Globulin Ratio (0.9-2) Lipase (11-82) U/L Urine Color Urine Appearance (Clear) Urine pH (4.5-7.5) Ur Specific Nelson (1.000-1.030) Urine Protein (Negative) Urine Glucose (UA) (Negative) Urine Ketones (Negative) Urine Blood (Negative) Urine Nitrite (Negative) Urine Bilirubin (Negative) Urine Urobilinogen (Negative) Ur Leukocyte Esterase (Negative) Urine WBC (Auto) (0-5) /hpf Urine RBC (Auto) (0-2) /hpf U Hyaline Cast (Auto) (0-2) /lpf U Epithel Cells (Auto) (0-2) /hpf Urine Bacteria (Auto) (None Seen) POC Ur Test (NEG) Urine Comment Lyme Disease Screen Negative Administered Medications Potassium Chloride (K Param / Wtr) 10 meq in 100 mls @ 100 mls/hr IV Q1H SHARMAINE Stop: 07/01/24 15:59 Last Admin: 07/01/24 14:41 Dose: Not Given Documented By: Infusion: 07/01/24 14:40 Dose: 100 mls/hr Documented By: Admin: 07/01/24 13:59 Dose: 100 mls/hr Documented By: LYNSEY Discontinued Medications Sodium Chloride (Nss) 1,000 mls @ 999 mls/hr IV .Q1H1M SHARMAINE Stop: 07/01/24 13:00 Last Infusion: 07/01/24 14:40 Dose: Infused Documented By: Admin: 07/01/24 12:06 Dose: 999 mls/hr Documented By: Infusion: 07/01/24 12:06 Dose: Infused Documented By: Admin: 07/01/24 11:17 Dose: 999 mls/hr Documented By: LYNSEY Sodium Chloride (Nss) 1,000 mls @ 999 mls/hr IV .Q1H1M SHARMAINE Stop: 07/01/24 13:15 Last Admin: 07/01/24 12:09 Dose: Not Given Documented By: Admin: 07/01/24 12:09 Dose: Not Given Documented By: LYNSEY Promethazine HCl (Phenergan) 25 mg in 51 mls @ 204 mls/hr IV NOW STA Stop: 07/01/24 14:01 Last Infusion: 07/01/24 14:40 Dose: Infused Documented By: Admin: 07/01/24 13:59 Dose: 204 mls/hr Documented By: LYNSEY Ioversol (Optiray 320 100ml) 94 ml IV ONCE ONE Stop: 07/01/24 12:35 Last Admin: 07/01/24 12:34 Dose: 94 ml Documented By: JOSIE Ketorolac Tromethamine (Ketorolac Tromethamine 15 Mg/Ml Vial) 15 mg IV NOW ONE Stop: 07/01/24 11:05 Last Admin: 07/01/24 11:17 Dose: 15 mg Documented By: LYNSEY Ondansetron HCl (Ondansetron Inj 2 Mg/Ml 2 Ml Vial) 4 mg IV NOW STA Stop: 07/01/24 11:05 Last Admin: 07/01/24 11:17 Dose: 4 mg Documented By: LYNSEY Valacyclovir HCl (Valacyclovir Hcl 500 Mg Tablet) 1,000 mg PO NOW ONE Stop: 07/01/24 13:49 Last Admin: 07/01/24 13:54 Dose: 1,000 mg Documented By: LYNSEY Imaging Data Radiologist's Impression: Abdomen/Pelvis CT 07/01/24 00:[address] WITH IV CONTRAST CT DOSE: 1407.29 mGy.cm HISTORY: Acute mid abdominal pain with nausea and vomiting MID ABD PAIN NV TECHNIQUE: Multiaxial CT images of the abdomen and pelvis were performed following the IV administration of 94 cc of Optiray, A dose lowering technique was utilized adhering to the principles of ALARA. COMPARISON STUDY: None. FINDINGS: Clear lung bases with trace pleural effusions. No pneumatosis or pneumoperitoneum. Unremarkable spleen, pancreas, gallbladder, adrenal glands and liver. Probable hepatic steatosis. Patency of the hepatic and portal veins. Unremarkable kidneys. No hydronephrosis. Urinary bladder wall thickening with partial distention. 3 cm left ovarian cyst. Hysterectomy. Retroaortic left renal vein. Unremarkable aorta. No bowel obstruction or bowel wall thickening. No ascites or mesenteric inflammation. Noninflamed appendix. Unremarkable soft tissues. No acute fracture. IMPRESSION: 1. No acute intra-abdominal or intrapelvic abnormality. 2. No bowel obstruction or bowel wall thickening. Normal appendix. 3. 3 cm left ovarian cyst. ACT 112: Negative or not required by law. The above report was generated using voice recognition software. It may contain grammatical, syntax or spelling errors. Electronically signed by: Ruben Márquez M.D. 07/01/2024 1:[address] 07/01/24 11:04 CT head/brain wo con CLINICAL HISTORY: 44 years-old Female with mores. Acute headache TECHNIQUE: Multiple axial CT images of the head were obtained without contrast. A dose lowering technique was utilized adhering to the principles of ALARA. CT DOSE: 580.53 mGy.cm COMPARISON: None. FINDINGS: No acute intracranial hemorrhage, midline shift, intracranial mass, hydrocephalus, territorial ischemia or abnormal extra-axial collection. Involutional changes. The calvarium is intact. The paranasal sinuses, mastoid air cells, and middle ear cavities are clear. IMPRESSION: No acute intracranial abnormality. ACT 112: Negative or not required by law. The above report was generated using voice recognition software. It may contain grammatical, syntax or spelling errors. Electronically signed by: Ruben Márquez M.D. 07/01/2024 11:47 AM Discharge Plan Visit Data Chief Complaint: Flu Like Symptoms Stated Complaint: HEADACHE, RASH,VOMITING,BADY ACHE ED Provider: Eduardo Vela Discharge Problem: Shingles, Vomiting, Abdominal pain, Chest pain, Back pain Condition: Fair Forms Stand Alone Forms: [facility] [employer] Prescriptions Prescriptions: No Action ondansetron 4 mg tablet,disintegrating 4 mg translingual Q8H PRN (Reason: Nausea And Vomiting) Referrals Referrals: Digna Flower DO [Outside Practitioners] - Discharge Problem: Shingles Qualifiers: Herpes zoster complications: without complications Qualified Code(s): B02.9 - Zoster without complications Vomiting Qualifiers: Vomiting type: unspecified Nausea presence: unspecified Qualified Code(s): R 11.10 - Vomiting, unspecified Abdominal pain Qualifiers: Abdominal location: unspecified location Qualified Code(s): R10.9 - Unspecified abdominal pain Chest pain Qualifiers: Chest pain type: unspecified Qualified Code(s): R07.9 - Chest pain, unspecified Back pain Qualifiers: Back pain location: back pain in unspecified location Chronicity: unspecified B ack pain laterality: unspecified Qualified Code(s): M54.9 - Dorsalgia, unspecified
[2024-07-01] MEDS: SODIUM CHLORIDE 0.9% 1,000 ML IV SCH ×2 (11:17→12:09)
[2024-07-01] MEDS: ONDANSETRON INJ 2 MG/ML 2 ML VIAL IV STA (11:17)
[2024-07-01] MEDS: KETOROLAC TROMETHAMINE 15 MG/ML VIAL IV ONE (11:17)
[2024-07-01 11:38] LABS: Basophils # (auto) 0.05 K/uL (0.00-0.20); Basophils % (auto) 0.4 %; Eosinophils # (auto) 0.06 K/uL (0.00-0.50); Eosinophils % (auto) 0.5 %; Hematocrit (blood only) 45.3 % (37.0-47.0); Immature Granulocytes # (auto) 0.05 K/uL (0.01-0.20); Immature Granulocytes % (auto) 0.4 %; Lymphocytes # (auto) 1.63 K/uL (1.20-3.40); Lymphocytes % (auto) 14.4 %; Mean Corpuscular Hemoglobin 30.7 pg (25.0-34.0); Mean Corpuscular Hgb Conc 35.3 g/dL (32.0-36.0); Mean Corpuscular Volume 86.9 fL (80.0-100.0); Mean Platelet Volume 9.1 fL (9.4-12.4); Monocytes # (auto) 0.67 K/uL (0.11-0.59); Monocytes % (auto) 5.9 %; Neutrophils # (auto) 8.85 K/uL (1.40-6.50); Neutrophils % (auto) 78.4 %; Platelet Count 302 K/uL (130-400); RDW Coefficient of Variation 12.5 % (11.5-14.5); RDW Standard Deviation 39.3 fL (36.4-46.3); Red Blood Count 5.21 M/uL (4.20-5.40); White Blood Count 11.31 K/ul (4.8-10.8)
--- NOTE | 2024-07-01 11:48 | CT Scan Report ---
CT head/brain wo con CLINICAL HISTORY: 44 years-old Female with morse. Acute headache TECHNIQUE: Multiple axial CT images of the head were obtained without contrast. A dose lowering tech nique was utilized adhering to the principles of ALARA. CT DOSE: 580.53 mGy.cm COMPARISON: None. FINDINGS: No acute intracranial hemorrhage, midline shift, intracranial mass, hydrocephalus, territorial ischem ia or abnormal extra-axial collection. Involutional changes. The calvarium is intact. The paranasal sinuses, mastoid air cells, and middle ear cavities are clear . IMPRESSION: No acute intracranial abnormality. ACT 112: Negative or not required by law. The above report was generated using voice recognition software. It may contain grammatical, syntax o r spelling errors. Electronically signed by: Ruben Márquez M.D. 07/01/2024 11:47 AM
[2024-07-01 11:50] LABS: Appearance Urine Clear (Clear); Bacteria Urine Automated 2+ (None Seen); Bilirubin Urine Negative (Negative); Blood Urine 1+ (Negative); Cast Urine Automated 0-2 /lpf (0-2); Color Urine Yellow; Glucose Urine UA Negative (Negative); Ketones Urine 4+ (Negative); Leukocyte Esterase Urine Negative (Negative); Nitrite Urine Negative (Negative); Protein Urine 1+ (Negative); Specific Gravity Urine 1.021 (1.000-1.030); Urobilinogen Urine Positive (Negative); WBC Urine Automated 0-5 /hpf (0-5)
[2024-07-01 12:01] LABS: Alanine Aminotransferase 15 U/L (7-52); Albumin Globulin Ratio 1.1 (0.9-2); Albumin Level 4.3 gm/dl (3.4-5.0); Alkaline Phosphatase 86 U/L (34-104); Anion Gap 12 (3-11); BUN Creatinine Ratio 13.8 (10-20); Bilirubin,Total 0.6 mg/dl (0.2-1.0); Blood Urea Nitrogen 8 mg/dl (6-23); Calcium 9.2 mg/dl (8.6-10.3); Carbon Dioxide 25 mmol/L (21-32); Chloride 98 mmol/L (98-107); Creatinine Clr Calc Pharmacy 127.6 ml/min; Globulin 3.9 gm/dl (2.5-4.0); Glucose 74 mg/dl (70-99(Fasting)); Lipase 11 U/L (11-82); Sodium 135 mmol/L (136-145); Total Protein 8.2 gm/dl (6.0-8.3)
[2024-07-01] MEDS: OPTIRAY 320 100ml IV ONE (12:34)
[2024-07-01 12:51] LABS: Potassium 3.2 mmol/L (3.5-5.1)
--- NOTE | 2024-07-01 13:28 | CT Scan Report ---
ABDOMEN AND PELVIS CT WITH IV CONTRAST CT DOSE: 1407.29 mGy.cm HISTORY: Acute mid abdominal pain with nausea and vomiting MID ABD PAIN NV TECHNIQUE: Multiaxial CT images of the abdomen and pelvis were performed following the IV administrat ion of 94 cc of Optiray, A dose lowering technique was utilized adhering to the principles of ALARA. COMPARISON STUDY: None. FINDINGS: Clear lung bases with trace pleural effusions. No pneumatosis or pneumoperitoneum. Unremark able spleen, pancreas, gallbladder, adrenal glands and liver. Probable hepatic steatosis. Patency of the hepatic and portal veins. Unremarkable kidneys. No hydronephrosis. Urinary bladder wall thickening with partial distention. 3 c m left ovarian cyst. Hysterectomy. Retroaortic left renal vein. Unremarkable aorta. No bowel obstruct ion or bowel wall thickening. No ascites or mesenteric inflammation. Noninflamed appendix. Unremarkab le soft tissues. No acute fracture. IMPRESSION: 1. No acute intra-abdominal or intrapelvic abnormality. 2. No bowel obstruction or bowel wall thickening. Normal appendix. 3. 3 cm left ovarian cyst. ACT 112: Negative or not required by law. The above report was generated using voice recognition software. It may contain grammatical, syntax o r spelling errors. Electronically signed by: Ruben Márquez M.D. 07/01/2024 1:27 PM
[2024-07-01] MEDS: valACYclovir HCL 500 MG TABLET PO ONE (13:54)
[2024-07-01] MEDS: POTASSIUM CHLORIDE / WTR 10 MEQ/100 ML PLCT IV SCH (13:59)
[2024-07-01] MEDS: PROMETHAZINE 25 MG/51 ML BAG IV STA (13:59)
--- NOTE | 2024-07-01 14:27 | History & Physical Report ---
Date of Service July 01, 2024 Assessment & Plan (1) Failure to thrive in adult: Plan: -patient has consolation of symptoms, including headache, nausea/vomiting, and rash on back and front, 5 day history -has failed outpatient therapy, minimal prior medical history, has hysterectomy -differential includes viral/bacterial meningitis (fits consolation of symptoms), other viral exanthem such as herpes, autoimmune conditions such as SLE, less likely , PUD, gastroenteritis Plan: -appreciate IR support for lumbar puncture -CSF labs ordered, including viral and bacterial serology tests -will treat empirically post LP with decadron, ceftriaxone, ampicillin, vancomycin, acyclovir (given zoster like rash, no hx of immunocompromised) -send autoimmune panel, vasculitis, ESR, CRP, drug panel, TSH, troponin, lactic acid (2) Nausea & vomiting: Plan: -likely 2/2 meningitis vs. other etiology above Plan: -start zofran IV q6hr prn -s/p 2L fluids in ED (3) Rash: Plan: -pending LP results and lab results above may need dermatology consult Plan I spent a total of 80 minutes in direct patient care, including [id number] time with the patient and/or family, reviewing medical records, ordering and reviewing diagnostic tests, and coordinating care with other healthcare prov iders. This time includes: history taking, physical examination, medical decision making, counseling, ECG interpretation, imaging interpretation, lab interpretation, orders, and education, excluding time spent in the performance of separately billed services. History of Present Illness Chief Complaint: -general mailaise, nausea/vomiting, headache Primary Care Provider: ARCADIO Barr 44 yo female with pmhx of fibroids, MARGARETH who presented for nausea, vomiting, headache. Has one visit to ED on 06/27/2024 for similar symptoms, PCP visit on 06/29/2024 with similar symptoms. Patient seen and examined at bedside. Best friend also present who is in healthcare, patient gives permission to talk to her as well. Patient not doing well today. States she has a pounding, frontal/behind eye headache, a rash that has been here the past few days, and refractory nausea/vomiting. Patient has no history of migraines, never had headache like this before. Unable to eat or drink food at this time, she is actively nauseus. None of these symptoms have ever occured before. Does have some neck pain slightly worse than normal. 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 Full code at this time. Allergies Allergy/AdvReac Type Severity Reaction Status Date / Time nickel Allergy Unknown Unknown - Unverified 07/01/24 14:32 Pt states allergic to a metal. Not sure which one. ethinyl estradiol AdvReac Intermediate NAUSEA AND Verified 07/01/24 14:32 VOMITING norgestimate AdvReac Intermediate NAUSEA AND Verified 07/01/24 14:32 VOMITING latex AdvReac Mild SKIN Verified 07/01/24 14:32 IRRITATION Home Medications Medication Instructions Recorded Confirmed Type ondansetron 4 mg disintegrating 4 mg translingual Q8H PRN Nausea 07/01/24 07/01/24 History tablet And Vomiting Past Med/Surg History Problem List (Updated 07/01/24 @ 14:51 by Eduardo Vela DO) Back pain (Acute) Chest pain (Acute) Abdominal pain (Acute) Vomiting (Acute) Shingles (Acute) Rash Nausea & vomiting Failure to thrive in adult Fibroids Heavy menstrual bleeding Social History Smoking Status: Former smoker Preferred Language: Swedish Feels Safe at Home: Yes Review of Systems Review of Systems: CONSTITUTIONAL: fatigue, weakness EYES: sensitivity to light EARS, NOSE, AND THROAT: No difficulties with hearing. No symptoms of rhinitis or sore throat. CARDIOVASCULAR: Patient denies chest pains, palpitations, orthopnea and paroxysmal nocturnal dyspnea. RESPIRATORY: No dyspnea on exertion, no wheezing or cough. GI: nausea, vomiting : No urinary hesitancy or dribbling. No nocturia or urinary frequency. No abnormal urethral discharge. MUSCULOSKELETAL: No myalgias or arthralgias. NEUROLOGIC: No chronic headaches, no seizures. Patient denies numbness, tingling or weakness. PSYCHIATRIC: Patient denies problems with mood disturbance. No problems with anxiety. ENDOCRINE: No excessive urination or excessive thirst. DERMATOLOGIC: rash on breast, scattered throughout back Physical Exam Physical Exam: Gen: A&O 3 NAD HEENT: NCAT, EOMI, not icteric. External ears normal. No rhinorrhea. Moist mucous membranes. Neck: slight tenderness with movement Lungs: No Respiratory distress. CV: RRR, no edema. Abdomen: Soft, nondistended, No rebound tenderness. MSK: No joint swelling, no redness. Skin: pustular rash noted on left breast, left armpit, upper left back, right back, noncontiguous Neuro: Normal Gait, Grossly intact. Sensitivity to light noted Psych: Appropriate for situation. Results & Data Results & Data Vital Signs (Past 12 Hours) Vital Signs Temp Pulse Pulse Resp BP BP Pulse Ox 07/01/24 13:21 58 L 18 96 07/01/24 13:00 138/92 07/01/24 13:00 138/92 07/01/24 13:00 138/92 07/01/24 13:00 61 23 96 07/01/24 12:42 59 L 18 134/83 99 07/01/24 12:20 59 L 07/01/24 11:39 68 20 143/87 H 96 07/01/24 10:53 68 20 96 07/01/24 10:45 36.7 C 67 14 126/91 98 O2 Del Method 07/01/24 13:21 07/01/24 13:00 07/01/24 13:00 07/01/24 13:00 07/01/24 13:00 07/01/24 12:42 07/01/24 12:20 07/01/24 11:39 Room Air 07/01/24 10:53 Room Air 07/01/24 10:45 Room Air Laboratory Results -personally reviewed, leukocytosis elevated and relatively stable from a few hours ago with left shift noted, K of 3.2 repleted, elevated AG Diagnostic Findings Abdomen/Pelvis CT 07/01/24 00:[address] WITH IV CONTRAST CT DOSE: 1407.29 mGy.cm HISTORY: Acute mid abdominal pain with nausea and vomiting MID ABD PAIN NV TECHNIQUE: Multiaxial CT images of the abdomen and pelvis were performed following the IV administration of 94 cc of Optiray, A dose lowering technique was utilized adhering to the principles of ALARA. COMPARISON STUDY: None. FINDINGS: Clear lung bases with trace pleural effusions. No pneumatosis or pneumoperitoneum. Unremarkable spleen, pancreas, gallbladder, adrenal glands and liver. Probable hepatic steatosis. Patency of the hepatic and portal veins. Unremarkable kidneys. No hydronephrosis. Urinary bladder wall thickening with partial distention. 3 cm left ovarian cyst. Hysterectomy. Retroaortic left renal vein. Unremarkable aorta. No bowel obstruction or bowel wall thickening. No ascites or mesenteric inflammation. Noninflamed appendix. Unremarkable soft tissues. No acute fracture. IMPRESSION: 1. No acute intra-abdominal or intrapelvic abnormality. 2. No bowel obstruction or bowel wall thickening. Normal appendix. 3. 3 cm left ovarian cyst. ACT 112: Negative or not required by law. The above report was generated using voice recognition software. It may contain grammatical, syntax or spelling errors. Electronically signed by: Ruben Márquez M.D. 07/01/2024 1:[address] 07/01/24 11:04 CT head/brain wo con CLINICAL HISTORY: 44 years-old Female with morse. Acute headache TECHNIQUE: Multiple axial CT images of the head were obtained without contrast. A dose lowering technique was utilized adhering to the principles of ALARA. CT DOSE: 580.53 mGy.cm COMPARISON: None. FINDINGS: No acute intracranial hemorrhage, midline shift, intracranial mass, hydrocephalus, territorial ischemia or abnormal extra-axial collection. Involutional changes. The calvarium is intact. The paranasal sinuses, mastoid air cells, and middle ear cavities are clear. IMPRESSION: No acute intracranial abnormality. ACT 112: Negative or not required by law. The above report was generated using voice recognition software. It may contain grammatical, syntax or spelling errors. Electronically signed by: Ruben Márquez M.D. 07/01/2024 11:47 AM -personally reviewed CT head, no acute abnormality, personally reviewed CT abdomen/pelvis, no acute findings, noted 3mm left ovarian cyst Medications Administered Potassium Chloride (K Paarm / Wtr) 10 meq in 100 mls @ 100 mls/hr IV Q1H [facility] Stop: 07/01/24 15:59 Last Admin: 07/01/24 14:41 Dose: Not Given Documented By: Infusion: 07/01/24 14:40 Dose: 100 mls/hr Documented By: Admin: 07/01/24 13:59 Dose: 100 mls/hr Documented By: LYNSEY
[2024-07-01] MEDS ORDERED: VANCOMYCIN CONSULT ACTIVE PRN (14:59)
--- NOTE | 2024-07-01 15:25 | Fluoroscopy Report ---
LUMBAR PUNCTURE UNDER FLUOROSCOPY CLINICAL HISTORY: Headache; fever PROCEDURE: Procedure and risks were explained. Informed consent was obtained. A final timeout was com pleted. The patient was placed prone on the fluoroscopic exam table. The lower lumbar region was prep ped and draped in sterile fashion. 1% lidocaine was utilized for skin anesthesia. Utilizing fluoroscopic guidance, a 22-gauge Sprotte spinal needle was advanced into the intrathecal s pace at the L2-3 disc space level. Fluoroscopic spot images were obtained Approximately 8 mL of clear CSF fluid was removed and sent to lab for analysis. The needle was removed and Band-Aid applied. The patient tolerated the procedure well. Vital signs will be monitored postprocedure. Fluoroscopy time 3 seconds. Study dosed 5.15 mGy. IMPRESSION: Lumbar puncture as above. Performed, dictated, and signed by Isac Murillo PA-C; to be co-signed by Dr. Zhang Cazares. Electronically signed by: Zhang Cazares M.D. 07/01/2024 4:03 PM
[2024-07-01 15:31] LABS: C Reactive Protein 3.98 mg/dl (0-0.5)
[2024-07-01 15:32] LABS: Troponin I High Sensitivity 6.5 pg/ml (0-14)
[2024-07-01 15:32] LABS: Total Protein CSF 75.8 mg/dl (15-45)
[2024-07-01] MEDS: PANTOprazole 40 MG TAB PO STA (15:34)
[2024-07-01] MEDS: cefTRIAXone SODIUM 2,000 MG/50 ML BAG IV SCH (15:34)
[2024-07-01 15:45] LABS: Thyroid Stimulating Hormone 1.518 uIu/ml (0.300-4.500)
[2024-07-01 15:53] LABS: Amphetamines+Metham, Urine Neg (Neg); Barbiturates, Urine Neg (Neg); Benzodiazepine, Urine Neg (Neg); Cocaine, Urine Neg (Neg); Fentanyl, Urine Neg (Neg); MDMA (Ecstacy), Urine Neg (Neg); Marijuana, Urine Neg (Neg); Methadone, Urine Neg (Neg); Opiate, Urine Neg (Neg); Phencyclidine, Urine Neg (Neg)
[2024-07-01 15:53] LABS: Appearance CSF Clear; CSF Count Tube # 3; CSF Xanthrochromic No xanthochromia; Color CSF Colorless; Red Blood Cell CSF Manual 1 (0); White Blood Cell CSF Manual 205 (0-5)
[2024-07-01 15:57] LABS: Pregnancy Test, Serum Negative (Negative)
[2024-07-01] MEDS: dexAMETHasone 6 MG in SYRINGE 0 ML IV STA (15:59)
[2024-07-01] MEDS: VANCOMYCIN HCL 1,500 MG in SODIUM CHLORIDE 0.9% 500 ML IV STA (16:00)
[2024-07-01] MEDS: AMPICILLIN 2,000 MG in SODIUM CHLOR 0.9% MINI-B 100 ML IV SCH (16:00)
[2024-07-01 16:35] LABS: Cryptococcus neoformans/ga PCR Not Detected (NotDetected); Cytomegalovirus PCR Not Detected (NotDetected); Enterovirus PCR Not Detected (NotDetected); Escherichia coli K1 PCR Not Detected (NotDetected); Haemophilius influenzae PCR Not Detected (NotDetected); Herpes Simplex Virus 1 PCR Not Detected (NotDetected); Herpes Simplex Virus 2 PCR Not Detected (NotDetected); Human Herpes Virus 6 PCR Not Detected (NotDetected); Human Parechovirus PCR Not Detected (NotDetected); Listeria monocytogenes PCR Not Detected (NotDetected); Neisseria meningitidis PCR Not Detected (NotDetected); Streptococcus agalactiae PCR Not Detected (NotDetected); Streptococcus pneumoniae PCR Not Detected (NotDetected)
[2024-07-01 16:36] LABS: Mononuclear WBC CSF Manual 96 %; Polynuclear WBC CSF Manual 4 %
[2024-07-01 16:48] LABS: Varicella Zoster Virus PCR DETECTED (NotDetected)
[2024-07-01] MEDS: ACYCLOVIR SOD 700 MG in DEXTROSE 5% 250 ML IV SCH (17:30)
[2024-07-01] MEDS: AMPICILLIN 250 MG in SODIUM CHLORIDE 0.9% 50 ML IV SCH (17:37)
[2024-07-01] MEDS ORDERED: POLYETHYLENE (MIRALAX) 17 GM PACK PO PRN (18:59)
[2024-07-01] MEDS: ENOXAPARIN INJ 40 MG/0.4 ML SYR SQ SCH (22:46)
[2024-07-01] MEDS: VANCOMYCIN HCL 1,000 MG/270 ML BAG IV SCH (23:38)
[2024-07-02] MEDS: ACYCLOVIR SOD 700 MG in DEXTROSE 5% 100 ML IV SCH (01:15)
[2024-07-02] MEDS: cefTRIAXone SODIUM 2,000 MG/50 ML BAG IV SCH (03:17)
--- NOTE | 2024-07-02 08:16 | Hospitalist Progress Note ---
Date of Service July 02, 2024 Assessment & Plan (1) Viral meningitis: (2) Shingles: (3) UTI (urinary tract infection): (4) Nausea & vomiting: (5) Left ovarian cyst: Plan 44 year old female with PMH of MARGARETH and fibroids s/p hysterectomy who presented to the ED on 07/01 for headache and N/V and is admitted for viral meningitis. Viral meningitis Patient underwent LP on 07/01 which revealed pleocytosis, elevated protein, and varicella zoster consistent with viral meningitis Continue IV acyclovir Leukocytosis today likely secondary to steroids Awaiting serology results to rule out bacterial component Discontinued ampicillin and will de-escalate vancomycin and decadron as indicated Infectious disease consulted: appreciate recs Pending studies: -CSF culture prelim NGTD -CSF smear and fungal culture -Autoimmune labs -EBV and [place] -Blood cultures 07/02 Shingles rash Improving per patient Continue IV acyclovir Possible UTI Bacteria present on UA and patient endorses urinary frequency x5 days Urine culture collected today Continue IV ceftriaxone Hypokalemia PO repletion Recheck BMP tomorrow am Nausea and vomiting Resolved Zofran PRN Left ovarian cyst Present since Feb 2022 per records Encouraged patient to follow up with PCP/OBGYN Morbid obesity BMI 41 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 Please see addendum. I spent a total of 60 minutes coordinating, documenting and providing care for this patient excluding time spent in the performance of separately billed services or time spent by another provider/QHP. Admission and Anticipated Discharge Date Admission Date: July 01, 2024 Supervising Physician Co-Signing Physician Notes Patient is seen and examined at bedside. Headache, neck stiffness much improved. Reports having mild pain of rash on left side of chest. Confusion resolved. Denies any change in vision, chest pain, dyspnea, abdominal pain, nausea, vomiting. Physical Exam: Vitals signs as noted above General Appearance:Obese, no apparent distress Head: normocephalic, Atraumatic Eyes: normal inspection, EOMI Neck: supple, Trachea midline Respiratory/Chest: Normal breath sounds, CTA, No accessory muscle use Cardiovascular: S1, S2, No murmur Abdomen/GI:Soft, Non tender, Bowel sounds present Extremities/Musculoskeletal:normal inspection, no edema Neurologic/Psych:AAOX3, grossly no focal neurological deficits Skin: normal color, warm, + erythematous rash on left side chest Varicella zoster meningitis/encephalitis Suspected UTI Agree with continuing IV acyclovir Follow-up CSF, blood cultures Will consider to de-escalate/discontinue antibiotics and steroids as above Empirically continue Rocephin for possible UTI ID input pending I personally interviewed and examined the patient at bedside. I have reviewed the advanced practitioner's documentation on the date of service referred in note and agree with plan. Patient's care is coordinated with Jazlyn ERVIN. Please refer to the documentation above for details of patient's presentation and for discussion of other issues. I spent a total [id number] coordinating, documenting, and providing care for this patient excluding time spent in the performance of separately billed services or time spent by another provider/QHP. Subjective Patient seen sitting up in bed Reports headache, neck pain, and back pain that are all tolerable and much im proved from admission Denies blurry vision, diplopia, chest pain, SOB, abdominal pain, N/V/D, weakness Eating and drinking well Review of Systems Review of Systems: All systems reviewed & are unremarkable except as noted in Subjective Physical Exam Physical Exam: Gen/Psych: WD/WN, sitting up in bed, NAD, A&Ox3 HEENT: Normocephalic, atraumatic, conjunctivae pink, sclerae anicteric, mucous membranes moist Lung: Clear to auscultation bilaterally, no wheezes/rales/rhonchi Heart: Regular rate and rhythm, no murmurs/rubs/gallops Extremities: Normal peripheral pulses, no edema Abdomen: Soft, NT, ND, +BS x 4 Skin: Warm and dry, no rash, shingles rash to left chest Results & Data Results & Data Vital Signs (Past 12 Hours) Vital Signs Temp Pulse Resp BP Pulse Ox O2 Del Method 07/02/24 07:57 36.6 C 53 L 17 131/85 95 Room Air 07/02/24 05:32 37.0 C 50 L 14 136/83 95 Room Air 07/02/24 01:30 37.0 C 68 14 144/71 H 96 Room Air 07/01/24 23:30 72 14 150/75 H 96 Room Air 07/01/24 23:00 69 16 142/67 H 95 Room Air 07/01/24 22:30 37.0 C 82 16 138/84 96 Room Air 07/01/24 22:00 36.9 C 76 16 145/73 H 94 Room Air 07/01/24 21:30 37.1 C 70 14 163/69 H 95 Room Air 07/01/24 21:00 37.1 C 59 L 16 146/88 H 95 Room Air 07/01/24 20:40 37.0 C 63 14 163/94 H 95 Room Air 07/01/24 20:32 37.1 C 62 14 136/87 94 Room Air Laboratory Results Short CBC 07/01/24 07/02/24 Range/Units 11:13 09:22 WBC 11.31 H 13.31 H (4.8-10.8) K/ul Hgb 16.0 14.1 (12.0-16.0) g/dl Hct 45.3 39.6 (37.0-47.0) % Plt Count 302 300 (130-400) K/uL BMP 07/01/24 07/01/24 07/02/24 11:13 12:10 09:22 Sodium 135 L 140 Potassium TNP 3.2 L 3.1 L Chloride 98 106 Carbon Dioxide 25 26 BUN 8 7 Creatinine 0.58 L 0.51 L Glucose 74 146 H Calcium 9.2 9.2 Liver Function 07/01/24 07/01/24 Range/Units 11:13 12:10 Total Bilirubin 0.6 (0.2-1.0) mg/dl AST TNP 19 ALT 15 (7-52) U/L Alkaline Phosphatase 86 (34-104) U/L Albumin 4.3 (3.4-5.0) gm/dl Urine 07/01/24 Range/Units 11:20 Urine Color Yellow Urine Appearance Clear (Clear) Urine pH 6.0 (4.5-7.5) Ur Specific [place] 1.021 (1.000-1.030) Urine Protein 1+ H (Negative) Urine Glucose (UA) Negative (Negative) I have independently reviewed and interpreted patient's labs including CBC and BMP. Medications Administered Current Inpatient Medications Acetaminophen (Acetaminophen 325 Mg Tab) 650 mg PO Q4H PRN PRN Reason: pain/fever Stop: 07/31/24 18:58 Enoxaparin Sodium (Enoxaparin Inj 40 Mg/0.4 Ml Syr) 40 mg SQ Q12H [facility] Stop: 07/31/24 19:14 Last Admin: 07/02/24 06:04 Dose: 40 mg Dexamethasone 6 mg/ Syringe 1.5 mls @ 1 mls/min IV Q24H [facility] Stop: 08/01/24 14:59 Acyclovir Sodium 700 mg/ (Dextrose) 114 mls @ 250 mls/hr IV Q8H [facility]; Protocol Stop: 07/11/24 23:29 Last Infusion: 07/02/24 09:22 Dose: Infused Ceftriaxone Sodium (Rocephin) 2,000 mg in 50 mls @ 100 mls/hr IV Q12H [facility] Stop: 07/12/24 03:29 Last Infusion: 07/02/24 03:59 Dose: Infused Vancomycin HCl (Vancomycin Hcl) 1,000 mg in 270 mls @ 200 mls/hr IV Q8H [facility] Stop: 07/11/24 22:59 Last Infusion: 07/02/24 07:33 Dose: Infused Lactobacillus Acidophilus (Advanced Probiotic 625 Mg Capsule) 1,250 mg PO DAILY [facility] Stop: 08/01/24 10:14 Last Admin: 07/02/24 11:12 Dose: 1,250 mg Miscellaneous Information (Vancomycin Consult Active) 1,200 each N/A UD PRN PRN Reason: Consult Stop: 07/31/24 14:58 Ondansetron HCl (Ondansetron Inj 2 Mg/Ml 2 Ml Vial) 4 mg IV Q6H PRN PRN Reason: Nausea Stop: 07/31/24 18:58 Pantoprazole Sodium (Pantoprazole 40 Mg Tab) 40 mg PO QAM [facility] Stop: 08/01/24 08:59 Last Admin: 07/02/24 08:43 Dose: 40 mg Polyethylene Glycol (Polyethylene (Miralax) 17 Gm Pack) 17 gm PO DAILY PRN PRN Reason: Constipation Stop: 07/31/24 18:58 (2) Shingles Herpes zoster complications: without complications Qualified Code(s): B02.9 - Zoster without complications
[2024-07-02] MEDS: PANTOprazole 40 MG TAB PO SCH (08:43)
[2024-07-02 09:44] LABS: Basophils # (auto) 0.04 K/uL (0.00-0.20); Basophils % (auto) 0.3 %; Eosinophils # (auto) 0.01 K/uL (0.00-0.50); Eosinophils % (auto) 0.1 %; Hematocrit (blood only) 39.6 % (37.0-47.0); Hemoglobin 14.1 g/dl (12.0-16.0); Immature Granulocytes # (auto) 0.07 K/uL (0.01-0.20); Immature Granulocytes % (auto) 0.5 %; Lymphocytes # (auto) 2.14 K/uL (1.20-3.40); Lymphocytes % (auto) 16.1 %; Mean Corpuscular Hemoglobin 30.9 pg (25.0-34.0); Mean Corpuscular Hgb Conc 35.6 g/dL (32.0-36.0); Mean Corpuscular Volume 86.7 fL (80.0-100.0); Mean Platelet Volume 9.4 fL (9.4-12.4); Monocytes # (auto) 0.54 K/uL (0.11-0.59); Monocytes % (auto) 4.1 %; Neutrophils # (auto) 10.51 K/uL (1.40-6.50); Neutrophils % (auto) 78.9 %; Platelet Count 300 K/uL (130-400); RDW Coefficient of Variation 12.6 % (11.5-14.5); RDW Standard Deviation 39.3 fL (36.4-46.3); Red Blood Count 4.57 M/uL (4.20-5.40); White Blood Count 13.31 K/ul (4.8-10.8)
[2024-07-02 10:08] LABS: BUN Creatinine Ratio 13.7 (10-20); Calcium 9.2 mg/dl (8.6-10.3); Creatinine Clr Calc Pharmacy 145.3 ml/min; Magnesium 1.7 mg/dl (1.7-2.4); Potassium 3.1 mmol/L (3.5-5.1)
--- NOTE | 2024-07-02 10:27 | Pharmacy Report ---
Pharmacy PK ABX Note - Date of Service July 02, 2024 - Assessment and Plan Assessment 44 year old F receiving vancomycin, ceftriaxone, and acyclovir for treatment of possible meningitis. She was admitted 07/01 due to a 5 days history of headache, N/V, and a rash on chest and back. LP completed 07/01 and CSF labs ordered. * Pertinent microbiologic data includes: CSF labs from 07/01 showed WBC of 205 and + VZV. CSF culture from 07/01, blood cultures x 2 from 07/02, and urine culture from 07/02 are pending. Day # 2 of antimicrobial therapy. Plan Vancomycin * Loading dose: 1500 mg IV x 1 * Initial maintenance dose: 1000 mg IV every 8 hours was started last evening * Vanco level drawn today was 10.8mcg/ml. While this does extrapolate to an AUC within the goal range(~430mg/L.hr), for better [employer]ATING [employer]ANT [employer]PER[employer] penetration, the higher end of the goal range is preferred. * Maintenance dose increased to 1250mg iv q 8 hours * Regimen is predicted to achieve target AUC/MONO of 500-600 mg/L.hr * Random level ordered for: 07/03 at 1200. Patient also remains on: * ceftriaxone 2gm iv q 12 hours * acyclovir 700mg iv q 8 hours Pharmacy will continue to follow and will adjust dose/frequency as necessary. Thank you. Pharmacy has transitioned to AUC monitoring for vancomycin. AUC/MONO is the preferred PK/PD target and is associated with decreased risk of nephrotoxicity compared to traditional trough targets.
[2024-07-02] MEDS: POTASSIUM CHLORIDE CRTAB 20 MEQ TABCR PO STA (10:41)
[2024-07-02] MEDS: ADVANCED PROBIOTIC 625 MG CAPSULE PO SCH (11:12)
--- OUTSIDE RECORDS SUMMARY | 2024-07-02 11:27 | External Medical Summary ---
Author Name Unknown Address Unknown Organization [facility] [address] [place] [id number] Laboratory Report Ordering Provider Test Date Status JF OLIVEIRA 06/27/2024 14:54:42 Final Observation Date Value Abnormality Reference (Units ) Status BUN 06/27/2024 14:54:42 7 6-20 (mg/dL) Final Creatinine 06/27/2024 14:54:42 0.6 0.5-1.0 (mg/dL) Final Glomerular filtration rate/1.73 sq M.predicted [Volume Rate/Area] in Serum, Plasma or Blood by Creatinine-based formula (CKD-EPI) 06/27/2024 14:54:42 >90 >=60 (mL/min) Final eGFR is calculated based on the CKD-EPI 2020 equation. Sodium 06/27/2024 14:54:42 136 135-146 (m mol/L) Final Potassium 06/27/2024 14:54:42 3.6 3.5-5.1 (m mol/L) Final Cl 06/27/2024 14:54:42 101 98-107 (mm ol/L) Final CO2 06/27/2024 14:54:42 22 22-32 (mmo l/L) Final Anion gap 06/27/2024 14:54:42 13 7-15 (mmol /L) Final Glucose 06/27/2024 14:54:42 103 70-120 (mg /dL) Final Albumin 06/27/2024 14:54:42 4.2 3.8-5.0 (g /dL) Final AST (Aspartate aminotransferase) 06/27/2024 14:54:42 21 10-35 (U/L) Final Alk Phos 06/27/2024 14:54:42 105 35-130 (U/ L) Final Bilirubin, Total 06/27/2024 14:54:42 0.4 <=1 .2 (mg/dL) Final Calcium 06/27/2024 14:54:42 9.3 8.4-10.2 ( mg/dL) Final Protein 06/27/2024 14:54:42 8.2 6.0-8.3 (g /dL) Final ALT (Alanine aminotransferase) 06/27/2024 14:54:42 15 10-35 (U/L) Final Performing Location [facility] - [facility] [place] [address] [place] [id number]
--- OUTSIDE RECORDS SUMMARY | 2024-07-02 11:27 | External Medical Summary | Summary of Care ---
Author Name Unknown Organization [facility] [address] [place] [address] Phone [phone] Care Team Providers Care Clean Room Technician Name Role Phone Izaiah Tamara ERVIN Primary Care Provider Reason for Visit * Reason Comments Headache Back Pain Vomiting Generalized Body Aches * Auth/Cert Specialty Diagnoses / Procedures Referred By Contmarisol t Referred To Contact [facility] [address] [place] [address] Phone: tel:[phone] [facility] Emergency Department ([facility]) [address] [place] [address] Phone: tel: fax: Referral ID Status Reason Start Date Expiration Date Visits Re quested Visits Authorized [id number] Encounter Details Date Type Department Care Team (Late st Contact Info) Description 06/27/2024 2:17 PM EDT - 06/27/2024 6:00 PM EDT Emergency [facility] Emergency Department ([facility]) [address] [place] [address] Nilo Hernandez MD [address] [place] [id number] Viral illness (Primary Dx); Nausea and vomiting, unspecified vomiting type Discharge Disposition: Home - Self Care Allergies Active Allergy Reactions Criticality Noted Date Comments Cocamidopropyl Betaine Rash 02/03/2021 Patch testing 02/03/21 Ortho Tri-Cyclen Nausea/vomiting 08/07/2007 Other Allergy (See Comments) 05/16/2021 Amidoamine, Propolis, DMAPA documented as of this encounter (statuses as of 06/28/2024) Medications Dupixent 300 MG/2ML Subcutaneous Solution Auto-injector (Dupilumab)Indicat ions:Intrinsic (allergic) eczema Maintenance Dose: Inject 300mg (1 pen) under the skin every 2 weeks 4 mL 3 06/25/19 25 Active Dupixent 300 MG/2ML Subcutaneous Solution Auto-injector (Dupilumab)Indicat ions:Intrinsic (allergic) eczema Inject 600 mg (2 pens) under the skin once then inject 300 mg (1 pen) under the skin every 2 weeks 8 mL 06/25/19 25 Active Ondansetron 4 MG Oral Tablet Disintegrating (Zofran) Place 1 Tablet on tongue every 8 hours as needed for Nausea. dissolve on tongue. 12 Tablet 06/28/19 25 Active documented as of this encounter (statuses as of 06/28/2024) Active Problems Problem Noted Date Diagnosed Date Body mass index (BMI) of 40.0 to 44.9 in adult 0 02/25/2023 Overview: Per Obesity protocol Iron deficiency anemia 03/27/2016 documented as of this encounter (statuses as of 06/28/2024) Resolved Problems Problem Noted Date Diagnosed Date Resolved Date Encounter for supervision of other normal 08/07/2007 09/27/2008 Overview (06/21/2015): ICD-10 update of inactive term documented as of this encounter (statuses as of 06/28/2024) Immunizations Name Administration Dates Next Due COVID-19 mRNA, LNP-s, No Pre serve, 2-Dose Series ([employer]) 05/05/2021,04/14/2021 HEPATITIS B VACCINE, RECOMB, 20 MCG/ML, ADULT (HEPLISAV-B) 03/15/2023,02/08/2023 Meningococcal Conjugate Vacc ine (Menactra/Menveo) 03/22/2008 Seasonal Influenza, PF, 6 M & above, IM , (FluLaval or Fluzone) 01/24/2022,01/02/2019,01/13/2018 Seasonal Influenza, Trivalen t, (IIV3), PF, (Fluzone) 02/14/2024 TDAP (age 10 and older)(Boostrix) 10/23/2018 documented as of this encounter Social History Tobacco Use Types Packs/Day Years Used Date Smoking Tobacco: Former Smokeless Tobacco: Never Alcohol Use Standard Drinks/Week Comments No 0 (1 standard drink = 0.6 oz pur e alcohol) PHQ-2 Answer Date Recorded PHQ Adult Total Score 0 02/14/2024 Hunger Vital Sign Answer Date Recorded Within the past 12 months, y ou worried that your food would run out before you got the money to buy more. Never true 02/09/20 23 Within the past 12 months, t he food you bought just didn't last and you didn't have money to get more. Never true 02/08/2023 Childcare Answer Date Recorded Do you feel overwhelmed with taking care of a child, family member or friend? No 02/08/2023 Does your family need help f inding childcare? (Household - for ages 0-17 years) Not on file 02/08/2023 Clothing Answer Date Recorded Have you been unable to get clothing when it was really needed? No 02/08/2023 Is your family able to get c lothes or diapers when needed? (Household - for ages 0-17 years) Not on file 02/08/2023 Personal Safety Answer Date Recorded Do you feel unsafe or have concerns for your saf ety? No 02/08/2023 Do you have concerns for you r family's safety? (Household - for ages 0-17 years) Not on file 02/08/2023 Utilities Answer Date Recorded Do you have trouble paying y our heating, water, or electric bill? No 02/08/2023 Is your family able to pay t he heat, water, or electric bill? (Household - for ages 0-17 years) Not on file 02/08/2023 Does your family have access to good internet? (Household - for ages 0-17 years) Not on file 02/08/2023 Employment Status Answer Date Recorded Are you unemployed or without regular income? No 02/08/2023 Does the household have a re gular source of income? (Household - for ages 0-17 years) Not on file 02/08/2023 Social Connections Answer Date Recorded How often do you feel lonely or isolated from th ose around you? Never 02/08/2023 Financial Resource Strain Answer Date R ecorded Do you have any trouble payi ng for your medications, or do you think you might in the future? No 02/08/2023 Does your family have troubl e paying for medicine? (Household - for ages 0-17 years) Not on file 02/08/2023 Transportation Needs Answer Date Record ed READ ONLY Do you have troubl e getting a ride to medical visits or work? Never True 02/08/2023 Does your family have a hard time getting a ride to doctors visits? (Household - for ages 0-17 years) Not on file 02/08/2023 Has lack of transportation k ept you from medical appointments, meetings, work, or from getting things needed for daily living? Check all that apply. (Adult - for ages 18 years and over) Not on file 02/08/2023 Do you (or your family) have trouble finding or paying for a ride (transportation)? (Household - for ages 0-17 years) Not on file 02/08/2023 Housing Stability Answer Date Recorded Do you currently live in a s helter or have no steady place to sleep at night? No 02/08/2023 READ ONLY Do you think you a re at risk of becoming homeless? No 02/08/2023 Does your family worry about paying for your home or becoming homeless? (Household - for ages 0-17 years) Not on file 1 04/11/2022 Are you homeless or worried that you might be in the future? (Adult - for ages 18 years and over) Not on file Are you (or your family) kathie eless or worried that you might be in the future? (Household - for ages 0-17 years) Not on file Food Insecurity Answer Date Recorded Do you need food for this week? No 02/08/2023 Are you able to get enough f ood for your family? (Household - for ages 0-17 years) Not on file 02/08/2023 Does your family need food t his week? (Household - for ages 0-17 years) Not on file 02/08/2023 Do you always have enough fo od for your family? (Household - for ages 0-17 years) Not on file 02/08/2023 Comments No Sex and Gender Information Value Date Recorded Sex Assigned at Female 10/23/2018 10:09 AM EDT Legal Sex Female 6:37 AM EST Gender Identity Female 10/23/2018 10:09 AM EDT Sexual Orientation Straight 10/23/2018 10 :09 AM EDT documented as of this encounter Last Filed Vital Signs Vital Sign Reading Time Taken Comments Blood Pressure 124/85 06/27/2024 5:00 PM EDT Pulse 92 06/27/2024 5:00 PM EDT Temperature 36.3 °C (97.3 °F) 06/27/2024 2:20 PM ED T Respiratory Rate 17 06/27/2024 5:00 PM EDT Oxygen Saturation 97% 06/27/2024 2:20 PM EDT Inhaled Oxygen Concentration - - Weight 99.8 kg (220 lb) 06/27/2024 2:20 PM EDT Height - - Body Mass Index 42.97 01/17/2024 8:40 AM EST documented in this encounter Discharge Instructions * Discharge Instructions* Nilo Hernandez MD - 06/27/2024 5:47 PM EDT You may take Zofran 1 tablet every 8 hours as needed for nausea. Please drink lots of fluids to stay well hydrated. You may take Tylenol and ibuprofen as needed for body aches, headaches or fevers. Please follow-up with your regular doctor the next available appointment for ER follow-up. Please return to the Emergency Department in the meantime for any new or worsening symptoms otherwise. documented in this encounter ED Notes * Nilo Hernandez MD - 06/27/2024 2:25 PM EDT HISTORY OF PRESENT ILLNESS Sasha Amaya is a 44 year old female who presents to the ED for evaluation of Headache, Back Pain, Vomiting, and Generalized Body Aches. The patient was seen at 06/27/24 1423. Pt here with multiple symptoms that began yesterday. Reports that yesterday it began with headache, body aches. Took motrin at work with some improvement. Last night developed back pain, vomiting. Pain is in the upper and lower back. Denied fevers, chills. Denied diarrhea, black/bloody stools. Does not have a menstrual period due to prior hysterectomy. Denied dysuria/burning with urination. She is having decreased urination. She is having generalized abdominal pain. Described as dull/constant pain. Reports diminished oral intake since last night. Currently, reports the back pain, headache and nausea are still present. Review of Systems Gastrointestinal: Positive for nausea and vomiting. Musculoskeletal: Positive for back pain and myalgias. Neurological: Positive for headaches. The patient's allergies, past history, and medications were reviewed. PHYSICAL EXAM Initial Vitals (see all): BP 149/99 | Pulse 106 | Resp 18 | Temp 97.3 | O2 97 %, Room Air, None | Weight 99.79 kg | Height 152.4 cm | BMI 42.97 kg/m2 Initial Pain Assessment (see all): 8 (severe pain)/10, location: back pain ([facility] Adult Scale 0-10 (18 years and older)) Physical Exam Vitals and nursing note reviewed. Constitutional: General: She is not in acute distress. Appearance: Normal appearance. She is well-developed. She is not diaphoretic. HENT: Head: Normocephalic and atraumatic. Nose: Nose normal. Mouth/Throat: Mouth: Mucous membranes are moist. Pharynx: Oropharynx is clear. Eyes: General: No scleral icterus. Extraocular Movements: Extraocular movements intact. Conjunctiva/sclera: Conjunctivae normal. Pupils: Pupils are equal, round, and reactive to light. Neck: Thyroid: No thyromegaly. Vascular: No JVD. Cardiovascular: Rate and Rhythm: Normal rate and regular rhythm. Heart sounds: Normal heart sounds. No murmur heard. No friction rub. No gallop. Pulmonary: Effort: Pulmonary effort is normal. No respiratory distress. Breath sounds: Normal breath sounds. No wheezing or rales. Chest: Chest wall: No tenderness. Abdominal: General: Bowel sounds are normal. There is no distension. Palpations: Abdomen is soft. There is no mass. Tenderness: There is no abdominal tenderness. There is no guarding or rebound. Musculoskeletal: General: No tenderness (No midline spinal TTP). Normal range of motion. Cervical back: Normal range of motion and neck supple. No muscular tenderness. Skin: General: Skin is warm and dry. Neurological: General: No focal deficit present. Mental Status: She is alert and oriented to person, place, and time. Psychiatric: Mood and Affect: Mood normal. Behavior: Behavior normal. PROCEDURES AND TREATMENTS ED Orders | ED Results MEDICAL DECISION MAKING Nursing notes and vital signs were reviewed. ED Course as of 06/27/24 2115 Sat June 27, 2024 1423 ED Triage Notes Pt here with vomiting, back pain, headache, body aches since yesterday. [MM] 1423 BP: 149/99 [MM] 1423 Pulse: 106 [MM] 1423 Resp: 18 [MM] 1423 SpO2: 97 % [MM] 1423 Temp: 36.3 °C (97.3 °F) [MM] 1455 My interpretation of the EKG shows rate 82, normal sinus rhythm, left axis deviation, normal intervals, no ST depression or elevation noted. [MM] 1517 WBC(!): 12.98 [MM] 1517 Neutrophils %(!): 86.0 [MM] 1744 Pt feeling improved on reevaluation [MM] ED Course User Index [MM] Nilo Hernandez MD Patient here with headaches, backache, body aches, vomiting. Physical examination and vital signs as above. EKG does not appear to show any acute ischemic change or dysrhythmia. Lab work grossly unremarkable. UA not consistent with UTI. Patient feeling much improved after headache cocktail. Discharged home in stable condition. AdvisedPCP follow-up. Return precautions given. Amount and/or Complexity of Data Reviewed Labs: ordered. Decision-making details documented in ED Course. ECG/medicine tests: ordered. Risk Prescription drug management. Clinical Impressions Viral illness Nausea and vomiting, unspecified vomiting type Disposition Discharged. The patient's condition at disposition was: stable. Discharge Medications Disp Refills Start End Ondansetron 4 MG Oral Tablet Disintegrating (Zofran) 12 Tablet 0 06/27/2024 -- Sig - Route: Place 1 Tablet on tongue every 8 hours as needed for Nausea. dissolve on tongue. - On Tongue Class: ePrescribing Renewals Renewal requests to authorizing provider (Nilo Hernandez MD) <b>prohibited</b> Nilo Hernandez * Gretchen Knight RN - 06/27/2024 2:19 PM EDT Pt here with vomiting, back pain, headache, body aches since yesterday. 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 Pt ambulated out of department. Pt had no further questions upon dicscharge. documented in this encounter Plan of Treatment Upcoming Encounters Date Type Department Care Team (Late st Contact Info) Description 12/03/2024 11:40 AM EDT Office Visit Dermatology, Dominick Benitez [address] [address] Munira Holm PA-C [address] [address] 02/15/2025 8:20 AM EST [facility] [address] [phone] Tamara Bliss CRNP [address] [id number] Pending Results Name Type Priority Associated Diagnoses Date /Time CULTURE, URINE, QUANTITATIVE Lab STAT 06/27/2024 5:52 PM EDT Scheduled Orders Name Type Priority Associated Diagnoses Orde r Schedule CULTURE, URINE, QUANTITATIVE Lab STAT One Time for 1 Occurrences starting 06/27/2024 until 06/27/2024 Health Maintenance Due Date Last Done Comments COVID-19 Vaccine (3 - 2024-25 season) 2023 05/05/2021, 04/14/2021 Depression Screening 02/13/2025 02/14/2024 Mammogram 04/17/2025 04/17/2024, 03/22, 12/01/2021, Additional history exists Lipid Panel 04/22/2025 04/22/2020, 01/27/2016 Diabetes Screening 06/28/2027 06/27/2024, 1 , 11/16/2022, Additional history exists DTap/Tdap Vaccines (2 - Td or Tdap) 10/23/2028 10/23/2018 MENINGOCOCCAL (MENACTRA/MENVEO) Aged Out 03/22/2008 No longer eligible based on patient's age to complete this topic Hepatitis B Vaccine Completed 03/15/2023, Influenza Vaccine (FLU shot) Completed , 01/24/2022, 01/02/2019, Additional history exists HPV (Gardasil) Vaccine Aged Out No lo nger eligible based on patient's age to complete this topic Meningitis B Vaccine (Bexsero/Trumemba) Aged Out No longer eligible based on patient's age to complete this topic Pneumococcal Vaccine: Pediatrics (0 to 5 Years) and At-Risk Patients (6 to 18 Years and 19+ Years) Aged Out No longer eligib le based on patient's age to complete this topic documented as of this encounter Medical Devices Not on filedocumented as of this encounter Procedures Procedure Name Priority Date/Time Associated Diagnosis Comments URINALYSIS, REFLEX TO CULTURE STAT 06/27/2024 5:52 PM EDT URINALYSIS, REFLEX TO CULTURE (CUP ONLY) STAT 06/27/2024 5:52 PM EDT URINALYSIS, REFLEX TO CULTURE (NOT FOR NEUTROPENIC PATIENTS) STAT 06/27/2024 5:52 PM EDT EXTRA HARRIS TOP Routine 06/27/2024 2:54 PM EDT EXTRA GREEN TOP WITH GEL Routine 06/27/2024 2:54 PM EDT EXTRA TUBES Routine 06/27/2024 2:54 PM EDT DIFFERENTIAL, AUTOMATED STAT 06/27/2024 2:54 PM EDT COMPREHENSIVE METABOLIC PANEL STAT 06/27/2024 2:54 PM EDT CBC STAT 06/27/2024 2:54 PM EDT LIPASE STAT 06/27/2024 2:54 PM EDT CBC STAT 06/27/2024 2:54 PM EDT documented in this encounter Results * (ABNORMAL) URINALYSIS, REFLEX TO CULTURE (06/27/2024 5:52 PM EDT) Color, Urine Yellow Light Yellow, Yellow, Dark Yellow 06/27/2024 6:20 PM EDT LAB[facility]ATORY [facility] Clarity, Urine Clear Clear 06/27/2024 6:20 PM EDT [facility] Glucose, Urine Negative Negative mg/dL 06/27/2024 6:20 PM EDT [facility] Bilirubin, Urine Negative Negative 06/27/2024 6:20 PM EDT [facility] Ketone, Urine 15(A) Negative mg/dL 06/27/2024 6:20 PM EDT [facility] Specific [place], Urine 1.006 1.003 - 1.030 06/27/2024 6:20 PM EDT [facility] Blood, Urine Trace(A) Negative 06/27/2024 6:20 PM EDT [facility] pH, Urine 6.0 5.0 - 7.5 Units 06/27/2024 6:20 PM EDT [facility] Protein, Urine Negative Negative mg/dL 06/27/2024 6:20 PM EDT [facility] Urobilinogen, Urine 0.2 0.2, 1.0 mg/dL 06/27/2024 6:20 PM EDT [facility] Nitrite, Urine Negative Negative 06/27/2024 6:20 PM EDT [facility] Esterase, Urine Negative Negative 06/27/2024 6:20 PM EDT [facility] RBC, Urine 0-2 0 - 2 /HPF 06/27/2024 6:20 PM EDT LABORATORY [facility] WBC, Urine 0-2 0 - 2 /HPF 06/27/2024 6:20 PM EDT LABORATORY [facility] Bacteria, Urine 26-50(A) 0 - 25 /HPF 06/27/2024 6:20 PM EDT LAB[facility]ATORY [facility] Culture, Urine 06/27/2024 6:20 PM EDT LABORATORY [facility] Comment:Quantitative urine c ulture to be performed Urine Urine specimen obtained by clean catch procedure / Unknown Non-blood Collection / Unknown 06/27/2024 5:52 PM EDT 06/27/2024 5:57 PM EDT Nilo Hernandez MD LAB URINE ORDERABLES Final Re sult Performing Organization Address [facility] de Phone Number LABORATORY [address] [address] * URINALYSIS, REFLEX TO CULTURE (CUP ONLY) (06/27/2024 5:52 PM EDT) Urinalysis, Reflex to Culture Specimen Specimen collected and received 06/27/2024 7:01 PM EDT LAB[facility]ATORY [facility] Urine Urine specimen obtained by clean catch procedure / Unknown Non-blood Collection / Unknown 06/27/2024 5:52 PM EDT 06/27/2024 5:57 PM EDT Nilo Hernandez MD LAB URINE ORDERABLES Final Re sult Performing Organization Address [facility] de Phone Number LABORATORY [address] [address] * EXTRA HARRIS TOP (06/27/2024 2:54 PM EDT) Blood Venous blood specimen / Unknown 06/27/2024 2:54 PM EDT 06/27/2024 2:59 PM EDT us Nilo Hernandez MD LAB BLOOD ORDERABLES Final Re sult Performing Organization Address [facility] de Phone Number LABORATORY [address] [address] * EXTRA GREEN TOP WITH GEL (06/27/2024 2:54 PM EDT) Blood Venous blood specimen / Unknown 06/27/2024 2:54 PM EDT 06/27/2024 2:59 PM EDT us Nilo Hernandez MD LAB BLOOD ORDERABLES Final Re sult LABORATORY [facility] [address] [facility] [place] [address] * (ABNORMAL) DIFFERENTIAL, AUTOMATED (06/27/2024 2:54 PM EDT) WBC 12.98(H) 4.00 - 10.80 K/uL 06/27/2024 3:03 PM EDT LABORATORY [facility] Neutrophils % 86.0(H) 40.0 - 75.0 % 06/27/2024 3:03 PM EDT LABORATORY [facility] Lymphocytes % 9.6(L) 18.0 - 42.0 % 06/27/2024 3:03 PM EDT LABORATORY [facility] Monocytes % 3.6 1.0 - 11.0 % 06/27/2024 3:03 PM EDT LABORATORY [facility] Eosinophils % 0.1 0.0 - 6.0 % 06/27/2024 3:03 PM EDT LABORATORY [facility] Basophils % 0.3 0.0 - 2.0 % 06/27/2024 3:03 PM EDT LABORATORY [facility] Immature Granulocytes % 0.4 0.0 - 2.0 % 06/27/2024 3:03 PM EDT LABORATORY [facility] Absolute Neutrophils 11.17(H) 1.80 - 7.70 K/uL 06/27/2024 3:03 PM EDT LABORATORY [facility] Lymphocytes 1.24 1.00 - 4.80 K/ul 06/27/2024 3:03 PM EDT LAB[facility]ATORY [facility] Monocytes 0.47 0.00 - 1.10 K/uL 06/27/2024 3:03 PM EDT LAB[facility]ORY [facility] Eosinophils 0.01 0.00 - 0.70 K/uL 06/27/2024 3:03 PM EDT LAB[facility]ATORY [facility] Basophils 0.04 0.00 - 0.20 K/uL 06/27/2024 3:03 PM EDT LABORATORY [facility] Absolute Immature Granulocytes 0.05 0.00 - 0.20 K/uL 06/27/2024 3:03 PM EDT LABORATORY [facility] Blood Venous blood specimen / Unknown Venipuncture / Unknown 06/27/2024 2:54 PM EDT 06/27/2024 2:57 PM EDT us Nilo Hernandez MD LAB BLOOD ORDERABLES Final Re sult LABORATORY [facility] [address] [place] [address] * (ABNORMAL) CBC (06/27/2024 2:54 PM EDT) WBC 12.98(H) 4.00 - 10.80 K/uL 06/27/2024 3:03 PM EDT LABORATORY [facility] RBC 5.09 3.85 - 5.15 M/uL 06/27/2024 3:03 PM EDT LABORATORY [facility] HGB 15.8(H) 12.0 - 15.3 g/dL 06/27/2024 3:03 PM EDT LABORATORY [facility] HCT 47.4(H) 36.0 - 45.2 % 06/27/2024 3:03 PM EDT LABORATORY [facility] MCV 93.1 81.5 - 97.5 fL 06/27/2024 3:03 PM EDT LABORATORY [facility] MCH 31.0 27.0 - 34.0 pg 06/27/2024 3:03 PM EDT LABORATORY [facility] MCHC 33.3 32.0 - 36.0 g/dL 06/27/2024 3:03 PM EDT LABORATORY [facility] RDW 12.9 11.5 - 15.5 % 06/27/2024 3:03 PM EDT LABORATORY [facility] PLT 326 140 - 400 K/uL 06/27/2024 3:03 PM EDT LABORATORY [facility] MPV 8.9 6.6 - 11.1 fL 06/27/2024 3:03 PM EDT LABORATORY [facility] NRBCs 0 <=0 /100 WBCs 06/27/2024 3:03 PM EDT [facility] Blood Venous blood specimen / Unknown Venipuncture / Unknown 06/27/2024 2:54 PM EDT 06/27/2024 2:57 PM EDT us Nilo Hernandez MD LAB BLOOD ORDERABLES Final Re sult Performing Organization Address [facility] Co de Phone Number LABORATORY [address] [phone] * LIPASE (06/27/2024 2:54 PM EDT) Lipase 26 13 - 60 U/L 06/27/2024 3:20 PM EDT LABORATORY [facility] Blood Venous blood specimen / Unknown Venipuncture / Unknown 06/27/2024 2:54 PM EDT 06/27/2024 2:57 PM EDT Nilo Hernandez MD LAB BLOOD ORDERABLES Final Re sult Performing Organization Address [facility] de Phone Number LABORATORY [address] [address] * COMPREHENSIVE METABOLIC PANEL (06/27/2024 2:54 PM EDT) BUN 7 6 - 20 mg/dL 06/27/2024 3:20 PM EDT LABORATORY [facility] CREATININE 0.6 0.5 - 1.0 mg/dL 06/27/2024 3:20 PM EDT [facility] EGFR >90 >=60 mL/min 06/27/2024 3:20 PM EDT [facility] Comment:eGFR is calculated b ased on the CKD-EPI 2020 equation. SODIUM 136 135 - 146 mmol/L 06/27/2024 3:20 PM EDT [facility] POTASSIUM 3.6 3.5 - 5.1 mmol/L 06/27/2024 3:20 PM EDT [facility] CHLORIDE 101 98 - 107 mmol/L 06/27/2024 3:20 PM EDT [facility] CO2 22 22 - 32 mmol/L 06/27/2024 3:20 PM EDT [facility] ANION GAP 13 7 - 15 mmol/L 06/27/2024 3:20 PM EDT [facility] GLUCOSE 103 70 - 120 mg/dL 06/27/2024 3:20 PM EDT [facility] Albumin 4.2 3.8 - 5.0 g/dL 06/27/2024 3:20 PM EDT [facility] AST 21 10 - 35 U/L 06/27/2024 3:20 PM EDT [facility] Alkaline Phosphatase 105 35 - 130 U/L 06/27/2024 3:20 PM EDT [facility] Bilirubin, Total 0.4 <=1.2 mg/dL 06/27/2024 3:20 PM EDT [facility] CALCIUM 9.3 8.4 - 10.2 mg/dL 06/27/2024 3:20 PM EDT [facility] Protein 8.2 6.0 - 8.3 g/dL 06/27/2024 3:20 PM EDT [facility] ALT 15 10 - 35 U/L 06/27/2024 3:20 PM EDT [facility] Blood Venous blood specimen / Unknown Venipuncture / Unknown 06/27/2024 2:54 PM EDT 06/27/2024 2:57 PM EDT us Nilo Hernandez MD LAB BLOOD ORDERABLES Final Re sult LABORATORY [address] [address] documented in this encounter Visit Diagnoses Diagnosis Viral illness- Primary Unspecified viral infection, in conditions classified elsewhere and of unspecified site Nausea and vomiting, unspecified vomiting type documented in this encounter Administered Medications Inactive Administered Medications - up to 3 most recent administrations Medication Order MAR Action Action Date Dose Rate Site diphenhydrAMINE (Benadryl) inj 25 mg 25 mg, Intravenous, ONCE, On 06/27/24 at 1715, For 1 dose Given 06/27/2024 4:49 PM EDT 25 mg keTORolac (Toradol) 30 MG/ML inj 15 mg 15 mg, IV Push, ONCE, On 06/27/24 at 1500, For 1 dose Given 06/27/2024 3:00 PM EDT 15 mg NSS 0.9% 1,000 mL bolus infusion Intravenous, at 1,000 mL/hr Administer over 60 Minutes, Administer entire volume within 60 minutes or less., ONCE, 1 dose, On 06/27/24 at 1500 Rate Verify 06/27/2024 4:15 PM EDT 1000 mL/hr Restarted 06/27/2024 4:14 PM EDT 1000 mL/hr New Bag 06/27/2024 3:07 PM EDT 1,000 mL 1000 mL/hr NSS 0.9% 1,000 mL bolus infusion Intravenous, at 1,000 mL/hr Administer over 60 Minutes, Administer entire volume within 60 minutes or less., ONCE, 1 dose, On 06/27/24 at 1715 Restarted 06/27/2024 5:04 PM EDT 1000 mL/hr New Bag 06/27/2024 4:55 PM EDT 1,000 mL 1000 mL/hr ondansetron (Zofran) inj 4 mg 4 mg, IV Push, ONCE, On 06/27/24 at 1500, For 1 dose Given 06/27/2024 2:59 PM EDT 4 mg Prochlorperazine (Compazine) inj 5 mg 5 mg, Intravenous, ONCE, On 06/27/24 at 1715, For 1 dose Given 06/27/2024 4:47 PM EDT 5 mg documented in this encounter Active and Recently Administered Medications Times are shown in EDT. Scheduled Medication Order 06/25/2024 06/26/2024 06/27/2024 diphenhydrAMINE (Benadryl) inj 25 mg (COMPLETED) 25 mg, Intravenous, ONCE, On 06/27/24 at 1715, For 1 dose 1649 (Given - Provid er: Andra Steele RN) keTORolac (Toradol) 30 MG/ML inj 15 mg (COMPLETED) 15 mg, IV Push, ONCE, On 06/27/24 at 1500, For 1 dose 1500 (Given - Provid er: Andra Steele RN) NSS 0.9% 1,000 mL bolus infusion (COMPLETED) Intravenous, at 1,000 mL/hr Administer over 60 Minutes, Administer entire volume within 60 minutes or less., ONCE, 1 dose, On 06/27/24 at 1500 1507 (New Bag - Prov ider: Andra Steele RN)1606 (Paused - Provider: Andra Steele RN)1614 (Restarted - Provider: Andra Steele RN)1615 (Rate Verify - Provider: Andra Steele RN)1615 (Stopped - Provider: Andra Steele RN) NSS 0.9% 1,000 mL bolus infusion (COMPLETED) Intravenous, at 1,000 mL/hr Administer over 60 Minutes, Administer entire volume within 60 minutes or less., ONCE, 1 dose, On 06/27/24 at 1715 1655 (New Bag - Prov ider: Andra Steele RN)1702 (Paused - Provider: Andra Steele RN)1704 (Restarted - Provider: Andra Steele RN)1741 (Stopped - Provider: Andra Steele RN) ondansetron (Zofran) inj 4 mg (COMPLETED) 4 mg, IV Push, ONCE, On 06/27/24 at 1500, For 1 dose 1459 (Given - Provid er: Andra Steele RN) Prochlorperazine (Compazine) inj 5 mg (COMPLETED) 5 mg, Intravenous, ONCE, On 06/27/24 at 1715, For 1 dose 1647 (Given - Provid er: Andra Steele RN) documented in this encounter Care Teams Clean Room Technician Relationship Specialty Start Date End Date Tamara Bliss CRNP [address] [phone] PCP - General Nurse Practitioner 02/08/23 documented as of this encounter"
--- OUTSIDE RECORDS SUMMARY | 2024-07-02 11:27 | External Medical Summary | Summary of Care ---
Author Name Unknown Organization [facility] Address [address] [facility] [place] [address] Phone [phone] Care Team Providers Care Life Agent Name Role Phone Tamara Bliss Primary Care Provider Reason for Visit * Reason Onset Date Comments Medication Refill 06/24/2024 Encounter Details Date Type Department Care Team (Late st Contact Info) Description 06/24/2024 Refill Dermatology, Dominick Benitez [address] [place] [address] Munira Holm PA-C [address] [place] [address] Intrinsic (allergic) eczema Allergies Active Allergy Reactions Criticality Noted Date Comments Cocamidopropyl Betaine Rash 02/03/2021 Patch testing 02/03/21 Ortho Tri-Cyclen Nausea/vomiting 08/07/2007 Other Allergy (See Comments) 05/16/2021 Amidoamine, Propolis, DMAPA documented as of this encounter (statuses as of 06/25/2024) Medications Dupixent 300 MG/2ML Subcutaneous Solution Auto-injector (Dupilumab)Indic ations:Intrinsic (allergic) eczema Maintenance Dose: Inject 300mg (1 pen) under the skin every 2 weeks 4 mL 3 06/25/19 25 Active Dupixent 300 MG/2ML Subcutaneous Solution Auto-injector (Dupilumab)Indic ations:Intrinsic (allergic) eczema Inject 600 mg (2 pens) under the skin once then inject 300 mg (1 pen) under the skin every 2 weeks 8 mL 06/25/19 25 Active Dupixent 300 MG/2ML Subcutaneous Solution Auto-injector (Dupilumab)Indic ations:Intrinsic (allergic) eczema Maintenance Dose: Inject 300mg (1 pen) under the skin every 2 weeks 4 mL 3 06/25/19 25 025 Discontin ued(Refil l) Dupixent 300 MG/2ML Subcutaneous Solution Auto-injector (Dupilumab)Indic ations:Intrinsic (allergic) eczema Inject 600 mg (2 pens) under the skin once then inject 300 mg (1 pen) under the skin every 2 weeks 8 mL 06/25/19 25 025 Discontin ued(Refil l) documented as of this encounter (statuses as of 06/25/2024) Active Problems Problem Noted Date Diagnosed Date Body mass index (BMI) of 40.0 to 44.9 in adult 0 02/25/2023 Overview: Per Obesity protocol Iron deficiency anemia 03/27/2016 documented as of this encounter (statuses as of 06/25/2024) Resolved Problems Problem Noted Date Diagnosed Date Resolved Date Encounter for supervision of other normal 08/07/2007 09/27/2008 Overview (06/21/2015): ICD-10 update of inactive term documented as of this encounter (statuses as of 06/25/2024) Immunizations Name Administration Dates Next Due COVID-19 mRNA, LNP-s, No Pre serve, 2-Dose Series ([employer]) 05/05/2021,04/14/2021 HEPATITIS B VACCINE, RECOMB, 20 MCG/ML, [...] AM EDT documented as of this encounter Miscellaneous Notes * Telephone Encounter - Alexia Kc CPhT - 06/24/2024 3:51 PM EDT [facility] cannot fill DUPIXENT due to insurance. We have forwarded the prescription to [facility]. The office should follow up with this Pharmacy to ensure they have contacted patient. Thank you. Alexia Kc CPhT [facility] 06/24/2024, 3:52 PM documented in this encounter Plan of Treatment Upcoming Encounters Date Type Department Care Team (Late st Contact Info) Description 12/03/2024 11:40 AM EDT Office Visit Dermatology, Dominick Benitez [address] [facility] [address] [place] [address] Munira Holm PA-C [address] [place] [phone] 02/15/2025 8:20 AM EST [facility] [address] [phone] Tamara Bliss CRNP [address] [phone] Health Maintenance Due Date Last Done Comments COVID-19 Vaccine ( season) 2023 05/05/2021, 04/14/2021 Depression Screening 02/13/2025 02/14/2024 Mammogram 04/17/2025 04/17/2024, 03/22, 12/01/2021, Additional history exists Lipid Panel 04/22/2025 04/22/2020, 01/27/2016 Diabetes Screening 12/12/2026 12/13/2023, 0 11/16/2022, 04/22/2020, Additional history exists DTap/Tdap Vaccines (2 - [...] Not on filedocumented as of this encounter Visit Diagnoses Diagnosis Intrinsic (allergic) eczema Other atopic dermatitis and related conditions documented in this encounter Care Teams Life Agent Relationship Specialty Start Date End Date Tamara Bliss CRNP [address] [phone] PCP - General Nurse Practitioner 02/08/23 documented as of this encounter
--- OUTSIDE RECORDS SUMMARY | 2024-07-02 11:27 | External Medical Summary ---
Author Name Unknown Address Unknown Organization [id number]:LABORATORY [facility] - [address] [place] [address] Laboratory Report Ordering Provider Test Date Status JF OLIVEIRA 06/27/2024 17:52:49 Final Observation Date Value Abnormality Reference (Units) Status Bacteria identified in Specimen by Culture 06/27/2024 17:52:49 No significant growth Final Test: Culture, Urine, Quant itative
Specimen Source: Urine, Clean Catch
Specimen Type: Urine
Specimen Date: 06/27/20241751
Result Date: 06/28/2024 1622
Result Status: Final result
Resulting Lab: [facility]ATORY [facility]
[address]
[place] [address]

CULTURE

No significant growth

null Performing Location [facility]ATORY [facility] [address] [facility] [address]
--- OUTSIDE RECORDS SUMMARY | 2024-07-02 11:27 | External Medical Summary ---
Author Name Unknown Address Unknown Organization K1F:LABORATORY [facility] - [address] [place] [address] [address] [place] [address] Laboratory Report Ordering Provider Test Date Status JF OLIVEIRA 06/27/2024 14:54:42 Final Observation Date Value Abnormality Reference (Units ) Status WBC, Total 06/27/2024 14:54:42 12.98 Above high normal 4.00-10.80 (K/uL) Final RBC 06/27/2024 14:54:42 5.09 3.85-5.15 (M/uL) Final Hemoglobin 06/27/2024 14:54:42 15.8 Above high normal 12.0-15.3 (g/dL) Final HCT 06/27/2024 14:54:42 47.4 Above high normal 36.0-45.2 (%) Final MCV 06/27/2024 14:54:42 93.1 81.5-97.5 (fL) Final MCH 06/27/2024 14:54:42 31.0 27.0-34.0 (pg) Final MCHC 06/27/2024 14:54:42 33.3 32.0-36.0 (g/dL) Final RDW 06/27/2024 14:54:42 12.9 11.5-15.5 (%) Final Platelets 06/27/2024 14:54:42 326 140-400 (K/uL) Final MPV 06/27/2024 14:54:42 8.9 6.6-11.1 (fL) Final Nucleated erythrocytes/100 leukocytes [Ratio] in Blood by Automated count 06/27/2024 14:54:42 0 <=0 (/100 WBCs) Final Performing Location LAB[facility]ATORY [facility] - [address] [place] [address]
--- OUTSIDE RECORDS SUMMARY | 2024-07-02 11:27 | External Medical Summary ---
Author Name Unknown Address Unknown Organization K1F:LABORATORY [facility] - [address] [place] [address] Laboratory Report Ordering Provider Test Date Status JF OLIVEIRA 06/27/2024 14:54:42 Final Observation Date Value Abnormality Reference (Units ) Status SYNC LEUKOCYTES IN BLOOD BY AUTOMATED COUNT 06/27/2024 14:54:42 12.98 Above high normal 4.00-10.80 (K/uL) Final Segs 06/27/2024 14:54:42 86.0 Above high normal 40.0-75.0 (%) Final Lymphs % 06/27/2024 14:54:42 9.6 Below low normal 18.0-42.0 (%) Final Monos 06/27/2024 14:54:42 3.6 1.0-11.0 (%) Final Eosinophils 06/27/2024 14:54:42 0.1 0.0-6.0 (%) Final Basos 06/27/2024 14:54:42 0.3 0.0-2.0 (%) Final Immature Granulocyte, Percent 06/27/2024 14:54:42 0.4 0.0-2.0 (%) Final Absolute Segs 06/27/2024 14:54:42 11.17 Above high normal 1.80-7.70 (K/uL) Final Lymphs, absolute 06/27/2024 14:54:42 1.24 1.00-4.80 (K/ul) Final Monos, Abs 06/27/2024 14:54:42 0.47 0.00-1.10 (K/uL) Final Eos, Abs 06/27/2024 14:54:42 0.01 0.00-0.70 (K/uL) Final Basos, Abs 06/27/2024 14:54:42 0.04 0.00-0.20 (K/uL) Final Immature Granulocytes, Number 06/27/2024 14:54:42 0.05 0.00-0.20 (K/uL) Final Performing Location LABORATORY [facility] - [address] [place], [place] [address] [place] [address]
--- OUTSIDE RECORDS SUMMARY | 2024-07-02 11:27 | External Medical Summary ---
Author Name Unknown Address Unknown Organization K1F:LABORATORY [facility] - [address] [place] [address] Laboratory Report Ordering Provider Test Date Status JF OLIVEIRA 06/27/2024 17:52:49 Final Observation Date Value Abnormality Reference (Units ) Status Color of Urine by Auto 06/27/2024 17:52:49 Yellow Light Yellow, Yellow, Dark Yellow Final Clarity, Urine 06/27/2024 17:52:49 Clear Clear Final Glucose [Mass/volume] in Urine by Automated test strip 06/27/2024 17:52:49 Negative Negative (mg/dL) Final Bilirubin.total [Presence] in Urine by Automated test strip 06/27/2024 17:52:49 Negative Negative Final Ketones [Mass/volume] in Urine by Automated test strip 06/27/2024 17:52:49 15 Abnormal Negative (mg/dL) Final Specific gravity, Urine 06/27/2024 17:52:49 1.006 1.003-1.030 Final Hemoglobin [Presence] in Urine by Automated test strip 06/27/2024 17:52:49 Trace Abnormal Negative Final pH, Urine 06/27/2024 17:52:49 6.0 5.0-7.5 (Units) Final Protein [Mass/volume] in Urine by Automated test strip 06/27/2024 17:52:49 Negative Negative (mg/dL) Final Urobilinogen [Mass/volume] in Urine by Automated test strip 06/27/2024 17:52:49 0.2 0.2, 1.0 (mg/dL) Final Nitrite [Presence] in Urine by Automated test strip 06/27/2024 17:52:49 Negative Negative Final Leukocyte esterase [Presence] in Urine by Automated test strip 06/27/2024 17:52:49 Negative Negative Final RBC, Urine 06/27/2024 17:52:49 0-2 0-2 (/HPF) Final WBC, Urine 06/27/2024 17:52:49 0-2 0-2 (/HPF) Final Bacteria [#/area] in Urine sediment by Microscopy high power field 06/27/2024 17:52:49 26-50 Abnormal 0-25 (/HPF) Final CULTURE, URINE - [facility] 06/27/2024 17:52:49 Final Quantitative urine culture t o be performed Performing Location [address]ORY [address] [address]
--- OUTSIDE RECORDS SUMMARY | 2024-07-02 11:27 | External Medical Summary ---
Author Name Unknown Address Unknown Organization K1F:LABORATORY [facility] - [address] [place] [address] Laboratory Report Ordering Provider Test Date Status JF OLIVEIRA 06/27/2024 14:54:42 Final Observation Date Value Abnormality Reference (Units ) Status Lipase 06/27/2024 14:54:42 26 13-60 (U/L ) Final Performing Location LABORATORY [facility] - [address] [place] [address]
--- OUTSIDE RECORDS SUMMARY | 2024-07-02 11:27 | External Medical Summary | Summary of Care ---
Author Name Unknown Organization [facility] Address [address] [place] [address] Phone [phone] Care Team Providers Care Ampoule Sealer Name Role Phone Izaiah Tamara Karla ERVIN Primary Care Provider Reason for Visit * Reason Onset Date Comments Advice 06/27/2024 Encounter Details Date Type Department Care Team (Late st Contact Info) Description 06/27/[address] [place] [phone] Services, Scheduling [address] [place] [address] Advice Allergies Active Allergy Reactions Criticality Noted Date Comments Cocamidopropyl Betaine Rash 02/03/2021 Patch testing 02/03/21 Ortho Tri-Cyclen Nausea/vomiting 08/07/2007 Other Allergy (See Comments) 05/16/2021 Amidoamine, Propolis, DMAPA documented as of this encounter (statuses as of 06/29/2024) Medications Dupixent 300 MG/2ML Subcutaneous Solution Auto-injector (Dupilumab)Indic ations:Intrinsic (allergic) eczema Maintenance Dose: Inject 300mg (1 pen) under the skin every 2 weeks 4 mL 3 5 Active Dupixent 300 MG/2ML Subcutaneous Solution Auto-injector (Dupilumab)Indic ations:Intrinsic (allergic) eczema Inject 600 mg (2 pens) under the skin once then inject 300 mg (1 pen) under the skin every 2 weeks 8 mL 5 Active documented as of this encounter (statuses as of 06/29/2024) Active Problems Problem Noted Date Diagnosed Date Body mass index (BMI) of 40.0 to 44.9 in adult 0 02/25/2023 Overview: Per Obesity protocol Iron deficiency anemia 03/27/2016 documented as of this encounter (statuses as of 06/29/2024) Resolved Problems Problem Noted Date Diagnosed Date Resolved Date Encounter for supervision of other normal 08/07/2007 09/27/2008 Overview (06/21/2015): ICD-10 update of inactive term documented as of this encounter (statuses as of 06/29/2024) Immunizations Name Administration Dates Next Due COVID-19 mRNA, LNP-s, No Pre serve, 2-Dose Series ([employer]) 05/05/2021,04/14/2021 HEPATITIS B VACCINE, RECOMB, 20 MCG/ML, [...] 02/08/2023 Does the household have a re lar source of income? (Household - for ages [...] encounter Miscellaneous Notes * Telephone Encounter - Graciela Mortensen MED ASSIST - 06/29/2024 7:47 AM EDT Pt was seen in the ER on 06/27/24. * Telephone Encounter - Mansi [place] OSA - 06/27/2024 7:09 AM EDT No Appointments Available What Visit Type is needed? Acute Were surrounding clinics offered? Yes Call Details are required. Please review Patient declined available appointment(s)?: Yes, explain: didn't want to wait until Saturday Were other providers in the clinic offered? Yes documented in this encounter Plan of Treatment Upcoming Encounters Date Type Department Care Team (Late st Contact Info) Description 06/29/2024 11:20 AM EDT [facility] [address] [phone] Tamara Bliss CRNP [address] [address] 12/03/2024 11:40 AM EDT Office Visit Dermatology, Dominick Benitez [address] [place] [address] Munira Holm PA-C [address] [address] 02/15/2025 8:20 AM EST Office Visit Dominick Nolasco [address] [phone] Tamara Bliss CRNP [address] [address] Health Maintenance Due Date Last Done Comments [...] Not on filedocumented as of this encounter Care Teams Ampoule Sealer Relationship Specialty Start Date End Date Tamara Bliss CRNP [address] [address] PCP - General Nurse Practitioner 02/08/23 documented as of this encounter
--- OUTSIDE RECORDS SUMMARY | 2024-07-02 11:27 | External Medical Summary | Summary of Care ---
Author Name Unknown Organization [facility] Address [address] [facility] [place] [address] Phone [phone] Care Team Providers Care Needle Control Cheniller Name Role Phone Tamara Bliss Primary Care Provider Reason for Visit * Reason Onset Date Comments Emergency Department Follow-Up [facility] 06/27 Viral illness IV Therapy 06/29/2024 Encounter Details Date Type Department Care Team (Late st Contact Info) Description 06/29/2024 11:20 AM EDT Office Visit [facility] [place] [address] [facility] [place] [phone] Tamara Bliss CRNP [address] [place] [address] Viral respiratory illness* Allergies Active Allergy Reactions Criticality Noted Date [...] skin every 2 weeks 8 mL 06/25/19 Active Ondansetron 4 MG Oral Tablet Disintegrating (Zofran) Place 1 Tablet on tongue every 8 hours as needed for Nausea. dissolve on tongue. 12 Tablet 06/28/19 Active Hospital, Clinic, or Other Facility Administered Medication Ordered Dose Route Frequency Start Date End Date Status keTORolac (Toradol) 15 MG/ML inj 15 mgIndications:Viral respiratory illness 15 mg IM ONCE 06/29/2024 06/29/2024 Disco ntinued keTORolac (Toradol) 15 MG/ML inj 15 mgIndications:Viral respiratory illness 15 mg IV PUSH ONCE 06/29/2024 06/29/2024 Disco ntinued NSS infusionIndications :Viral respiratory illness 1000 mL IV ONCE 06/29/2024 06/29/2024 Ended keTORolac (Toradol) 30 MG/ML inj 15 mgIndications:Viral respiratory illness 15 mg IV PUSH ONCE 06/29/2024 06/29/2024 Ended documented as of this encounter (statuses as [...] mRNA, LNP-s, No Pre serve, 2-Dose Series ([email or web address]) 05/05/2021,04/14/2021 HEPATITIS B VACCINE, RECOMB, 20 MCG/ML, [...] 18 years and over) Not on file 3 Are you (or your family) kathie eless [...] Sign Reading Time Taken Comments Blood Pressure 132/95 06/29/2024 11:17 AM EDT Pulse 98 06/29/2024 11:17 AM EDT Temperature 36.4 °C (97.6 °F) 06/29/2024 1 1:17 AM EDT Respiratory Rate 18 06/29/2024 11:1 7 AM EDT Oxygen Saturation 96% 06/29/2024 11: 17 AM EDT Inhaled Oxygen Concentration - - Weight 97.5 kg (214 lb 14.4 oz) 025 11:17 AM EDT Height - - Body Mass Index 41.97 01/17/2024 8:40 AM EST documented in this encounter Progress Notes * Cindy Velez RN - 06/29/2024 11:52 AM EDT IV ADMINISTRATION DOCUMENTATION After identifying patient by name and date of , IV catheter was inserted into Right Hand Vein with a positive blood return noted. Infusion start time 1245 PM IV solution NSS was hung and infused via gravity at 999 ml/hr per Provider order. Infusion stop time 1345PM. IV Karon: Discontinued Total volume infused was 1000 ml Total time of infusion was 1 hour Educated patient on signs and symptoms to report. Instructed to call clinic with any problems or concerns regarding IV therapy. See Documentation Flowsheet for additional information. Cindy Velez RN Reason for Call: Emergency Department Follow-Up ([facility] 06/27 Viral illness) and IV Therapy Contact: In Clinic Contact Type: Emergency Room Save Provider In-Basket: No Outcome: NSS IV 1000 ml given and Toradol. 15 mg given IVP. Face to face time spent with Patient (minutes): 60 Total Time including non face to face (minutes): 40 Cindy Velez RN * Tamara Bliss, ARCADIO - 06/29/2024 11:22 AM EDT Images from the original note were not included. Subjective Sasha Amaya is a 44 year old female that presents for Emergency Department Follow-Up ([facility] 06/27Viral illness) History of Present Illness Sasha Amaya is a 44 year old female who presents with dehydration and persistent headache following a recent ER visit. She was treated in the emergency room on Saturday with two bags of fluids, headache medication, Benadryl, and Zofran. Despite this, she continues to feel dehydrated, experiencing dryness on her lips and persistent headaches. Current symptoms include nausea, vomiting, and an inability to tolerate food or fluids. Yesterday, she only managed to eat one yogurt and has been unable to retain anything since, including water, which she vomited before arriving at the clinic. She recalls a similar viral infection about six months ago, which included vertigo. This time, she experiences body aches, back pain, and changes in appetite, but no significant fever, although she often feels cold. No diarrhea and she is not using the bathroom regularly. She is concerned about frequent viral infections, comparing her current symptoms to those experienced during a previous COVID infection, but without vertigo this time. Review of Systems Constitutional: Positive for appetite change. Negative for fever. Gastrointestinal: Positive for nausea and vomiting. Musculoskeletal: Positive for back pain and myalgias. Neurological: Positive for headaches. Objective BP 132/95 | Pulse 98 | Temp 97.6 °F (36.4 °C) (Tympanic) | Resp 18 | Wt 214 lb 14.4 oz (97.5 kg) | LMP 03/21/2016 | SpO2 96% | BMI 41.97 kg/m² | BSA 2.03 m² BP Readings from Last 3 Encounters: 06/29/24 132/95 06/27/24 124/85 02/14/24 102/82 Wt Readings from Last 3 Encounters: 06/29/24 214 lb 14.4 oz (97.5 kg) 06/27/24 220 lb (99.8 kg) 02/14/24 218 lb 11.2 oz (99.2 kg) BMI Readings from Last 3 Encounters: 06/29/24 41.97 kg/m² 06/27/24 42.97 kg/m² 02/14/24 42.71 kg/m² Ht Readings from Last 3 Encounters: 01/17/24 5' (1.524 m) 02/08/23 5' (1.524 m) 02/07/22 5' 0.5" (1.537 m) Physical Exam Physical Exam Vitals and nursing note reviewed. Constitutional: General: She is not in acute distress. HENT: Head: Normocephalic and atraumatic. Mouth/Throat: Mouth: Mucous membranes are moist. Cardiovascular: Rate and Rhythm: Normal rate and regular rhythm. Pulmonary: Effort: Pulmonary effort is normal. No respiratory distress. Breath sounds: No wheezing. Abdominal: Palpations: Abdomen is soft. Tenderness: There is no abdominal tenderness. Musculoskeletal: General: Normal range of motion. Skin: General: Skin is warm and dry. Capillary Refill: Capillary refill takes less than 2 seconds. Neurological: Mental Status: She is alert and oriented to person, place, and time. Mental status is at baseline. Psychiatric: Mood and Affect: Mood normal. Behavior: Behavior is cooperative. BP 132/95 | Pulse 98 | Temp 97.6 °F (36.4 °C) (Tympanic) | Resp 18 | Wt 214 lb 14.4 oz (97.5 kg) | LMP 03/21/2016 | SpO2 96% | BMI 41.97 kg/m² | BSA 2.03 m² Results Results reviewed : None Assessment and Plan Assessment & Plan Viral respiratory illness Acute nausea and vomiting with dehydration due to inability to tolerate oral intake. Persistent symptoms despite ER treatment. - Administer IV fluids. - Administer Toradol for headache relief. Dehydration Dehydration due to persistent nausea and vomiting. Symptoms include dry lips and elevated heart rate. Headache Severe headache likely due to dehydration and viral infection. Persistent with pounding sensation. Vertigo No current vertigo symptoms, but reports similar feeling to previous viral infection. Orders: keTORolac (Toradol) 15 MG/ML inj 15 mg Wrap-Up I spent a total of 20-29 minutes (exact time 20 mins) on the date of service in preparation, delivery, and documentation of the care provided to Sasha Amaya excluding any time spent in the performance of separately billed services. Text in this note was generated using an ambient documentation service. I discussed the use of a device to record and summarize our discussion today. All persons present during the encounter consented to its use. documented in this encounter Nursing Notes * Ntaali Sanchez LPN - 06/29/2024 11:12 AM EDT Chief Complaint Patient presents with Emergency Department Follow-Up [facility] 5/10 Viral illness documented in this encounter Plan of Treatment Upcoming Encounters Date Type Department Care Team (Late st Contact Info) Description 12/03/2024 11:40 AM EDT Office Visit Dermatology, Domin[place] Benitez [address] [place] [address] Munira Holm PA-C [address] [place] [address] 02/15/2025 8:20 AM EST [facility] [place] [phone] Tamara Bliss CRNP [address] [place] [address] Scheduled Orders Name Type Priority Associated Diagnoses Orde r Schedule SALINE KARON Procedures Routine Viral respiratory illness Ordered: 06/29/2024 SALINE KARON, DISCONTINUE Procedures Routine Viral respiratory illness Ordered: 06/29/2024 Health Maintenance Due Date Last Done Comments [...] as of this encounter Visit Diagnoses Diagnosis Viral respiratory illness- Primary Unspecified viral infection, in conditions classified elsewhere and of unspecified site documented in this encounter Administered Medications Inactive Administered Medications - up to 3 most recent administrations Medication Order MAR Action Action Date Dose Rate Site keTORolac (Toradol) 30 MG/ML inj 15 mg 15 mg, IV Push, ONCE, On Sat06/29/24 at 1400, For 1 doseIndications:Viral respiratory illness Given 06/29/2024 1:17 PM EDT 15 mg NSS infusion 1,000 mL, Intravenous, at 999 mL/hr, ONCE, 1 dose, On Sat06/29/24 at 1230Indications:Viral respiratory illness Start Infusion 06/29/2024 12:52 PM EDT 1,000 mL 999 mL/hr documented in this encounter Care Teams Needle Control Cheniller Relationship Specialty Start Date End Date Tamara Bliss CRNP [address] [place] [phone] PCP - General Nurse Practitioner 02/08/23 documented as of this encounter
--- OUTSIDE RECORDS SUMMARY | 2024-07-02 11:28 | External Medical Summary | Summary of Care ---
Author Name Unknown Organization [facility] Address [address] [facility] [place] [address] Phone [phone] Care Team Providers Care Rodbuster Name Role Phone BlissTamara Primary Care Provider Reason for Visit * Reason Onset Date Comments Precert In Process 05/27/2024 16 CHLOYE RXB DUPIXENT Encounter Details Date Type Department Care Team (Late st Contact Info) Description 05/27/2024 Telephone Dermatology, Dominick Benitez [address] [place] [address] Munira Holm PA-C [address] [place] [address] Precert In Process (16 CHLOYE RXB DUPIXENT) Allergies Active Allergy Reactions Criticality Noted Date Comments Cocamidopropyl Betaine Rash 02/03/2021 Patch testing 02/03/21 Ortho Tri-Cyclen Nausea/vomiting 08/07/2007 Other Allergy (See Comments) 05/16/2021 Amidoamine, Propolis, DMAPA documented as of this encounter (statuses as of 06/03/2024) Medications No known medicationsdocumented as of this encounter (statuses as of 06/03/2024) Active Problems Problem Noted Date Diagnosed Date Body mass index (BMI) of 40.0 to 44.9 in adult 0 02/25/2023 Overview: Per Obesity protocol Iron deficiency anemia 03/27/2016 documented as of this encounter (statuses as of 06/03/2024) Resolved Problems Problem Noted Date Diagnosed Date Resolved Date Encounter for supervision of other normal 08/07/2007 09/27/2008 Overview (06/21/2015): ICD-10 update of inactive term documented as of this encounter (statuses as of 06/03/2024) Immunizations Name Administration Dates Next Due COVID-19 mRNA, LNP-s, No Pre serve, 2-Dose Series ([employer]) 05/05/2021,04/14/2021 HEPATITIS B VACCINE, RECOMB, 20 MCG/ML, [...] encounter Miscellaneous Notes * Telephone Encounter - Cathi Sepulveda RPh - 06/03/2024 10:05 AM EDT Are you able to see if you can resubmit? Provider changed dx code to match visit. If not, will appeal. Cathi Sepulveda Medication Therapy Disease Management (MTDM) Dermatology Clinical Pharmacist 06/03/2024, 10:06 AM * Telephone Encounter - Munira Holm PA-C - 06/03/2024 8:37 AM EDT Changed. Munira Holm PA-C 06/03/2024 8:37 AM * Telephone Encounter - Cathi Sepulveda RPh - 06/03/2024 8:12 AM EDT Reji Lombardo, Yes, this insurance typically gives us issues so I think it would increase of chance of approval ifthey matched. Cathi Sepulveda Medication Therapy Disease Management ([facility]) Dermatology Clinical Pharmacist 06/03/2024, 8:13 AM * Telephone Encounter - Munira Holm PA-C - 06/02/2024 4:08 PM EDT Allergic eczema (diagnosis below) and allergic contact dermatitis are essentially same diagnosis. Cathi do you think it would benefit if I changed the diagnosis code on her notes because they are basically the same? Munira Holm PA-C 06/02/2024 4:09 PM * Telephone Encounter - Cathi Sepulveda RPh - 06/02/2024 3:01 PM EDT Reji Lombardo, See message prior to this for Dupixent denial reasoning and let me know how you would like to proceed. Cathi Sepulveda Medication Therapy Disease Management ([facility]) Dermatology Clinical Pharmacist 06/02/2024, 3:01 PM * Telephone Encounter - Lyn Henderson OSA - 06/02/2024 2:55 PM EDT Called insurance to clarify denial. The rep stated that the dx code that was submitted L20.84 (below) doesn't not match any clinical notes that were submitted (L23.9). Therefore the PA was denied. Lyn Henderson Medication Electronic Equipment Repairer [facility] PH [phone] 06/02/2024,2:56 PM * Telephone Encounter - Lyn Henderson OSA - 06/02/2024 9:38 AM EDT Received a fax that they never received my form. Ref-axed again today. Lyn Henderson Medication Electronic Equipment Repairer [facility] [phone] 06/02/2024,9:39 AM * Telephone Encounter - Cathi Sepulveda RPh - 05/29/2024 11:03 AM EDT BSA 1-3% Cathi Sepulveda Medication Therapy Disease Management (MTD) Dermatology Clinical Pharmacist 05/29/2024, 11:03 AM * Telephone Encounter - Munira Holm PA-C - 05/29/2024 9:35 AM EDT Addended! She primarily gets it on her scalp and face. So not a lot of surface area but pretty bad in those special sites Munira Holm PA-C 05/29/2024 9:35 AM * Telephone Encounter - Cathi Sepulveda RPh - 05/29/2024 8:58 AM EDT Insurance requiring BSA Cathi Sepulveda Medication Therapy Disease Management (MTDM) Dermatology Clinical Pharmacist 05/29/2024, 8:58 AM * Telephone Encounter - Lyn Henderson OSA - 05/29/2024 8:34 AM EDT Images from the original note were not included. Received fax from insurance and they are requiring a BSA. (Pre-treatment) Thanks Lyn Henderson Medication Electronic Equipment Repairer [facility] [phone] 05/29/2024,8:34 AM * Telephone Encounter - Andreea Zheng RPh - 05/28/2024 9:10 AM EDT [facility] Dermatology Pre-cert Request Please see Dermatology pre-cert request - route referral message with approval, denial or questionsback to "Dermatology Pharmacist Pool [[id number]]". - Methotrexate not an option due to morbid obesity and inability to accurately manage dosing - Cyclosporine is not indicated for long-term use - Phototherapy not indicated due to special site involvement (eyelids, under eye, neck, hands) - Topical calcineurin not indicated at the sites of involvement (eyelids, under eye) Therapies previously tried: Topicals tried: Betamethasone dipropionate 0.05% cream (high potency), Desonide 0.05% ointment (lower-mid potency), Mometasone 0.1% cream (medium potency), and Triamcinolone 0.5% cream (high potency) - Oral steroids Andreea Zheng RPh Medication Therapy Disease Management Dermatology Department 05/28/2024, 9:10 AM * Telephone Encounter - Munira Holm PA-C - 05/27/2024 4:05 PM EDT Dermatology Pre-Cert Request Medication/Disease State Information: Medication: Dupilumab (Dupixent) Initiation: 300mg/2ml Pen - 600mg once then 300mg every two weeks (Day Supply: 8mL per 42 days) Diagnosis (including ICD-10): Atopic dermatitis - Intrinsic (allergic) eczema L20.84 Site of Care: specialty medication - route to [id number]. Referral to pharmacist for: Medication Education Only See corresponding visit note(s) for additional supporting clinical information. Administration Location if Injection: Patient Administered at Home Is the patient in a facility?: No Office Information: Prescriber: Munira Holm documented in this encounter Plan of Treatment Upcoming Encounters Date Type Department Care Team (Late st Contact Info) Description 12/03/2024 11:40 AM EDT Office Visit Dermatology, Dominick Benitez [address] [place] [address] Munira Holm PA-C [address] [place] [address] 02/15/2025 8:20 AM EST Office Visit Family [facility], Domin[place] [address] [place] [phone] Tamara Bliss CRNP [address] [place] [phone] Health Maintenance Due Date Last Done Comments COVID-19 Vaccine ( season) 2023 05/05/2021, 04/14/2021 Depression Screening 02/13/2025 02/14/2024 Mammogram 04/17/2025 04/17/2024, 0204/2023, 12/01/2021, Additional history exists Lipid Panel 04/22/2025 04/22/2020, 01/27/2016 Diabetes Screening 12/12/2026 12/13/2023, 0 11/16/2022, 04/22/2020, Additional history exists DTap/Tdap Vaccines (2 - Td or Tdap) 10/23/2028 10/23/2018 MENINGOCOCCAL (MENACTRA/MENVEO) Aged Out 03/22/2008 No longer eligible based on patient's age to complete this topic Hepatitis B Vaccine Completed 03/15/2023, 3 Influenza Vaccine (FLU shot) Completed , 01/24/2022, [...] filedocumented as of this encounter Care Teams Rodbuster Relationship Specialty Start Date End Date Tamara Bliss CRNP [address] [place] [phone] PCP - General Nurse Practitioner 02/08/23 documented as of this encounter
--- OUTSIDE RECORDS SUMMARY | 2024-07-02 11:28 | External Medical Summary | Summary of Care ---
Author Name Unknown Organization [facility] Address [address] [facility] [place] [address] Phone [phone] Care Team Providers Care Band Saw Marker Name Role Phone BlissTamara Primary Care Provider Reason for Visit * Reason Onset Date Comments Precert Denied 05/27/2024 Dupixent Encounter Details Date Type Department Care Team (Late st Contact Info) Description 05/27/2024 Telephone Dermatology, Dominick Benitez [address] [place] [address] Munira Holm PA-C [address] [place] [address] Precert Denied (Dupixent) Allergies Active Allergy Reactions Criticality Noted Date [...] 06/03/2024 8:37 AM * Telephone Encounter - aCthi Sepulveda RPh - 06/03/2024 8:12 AM EDT Reji Lombardo, Yes, this insurance typically gives us issues so I think it would increase of chance of approval ifthey matched. Cathi Sepulveda Medication Therapy Disease Management ([facility]) Dermatology Clinical Pharmacist 06/03/2024, 8:13 AM * Telephone Encounter - Munira Holm PA-C - 06/02/2024 4:08 PM EDT Allergic eczema (diagnosis below) and allergic contact dermatitis are essentially same diagnosis. Ctahi do you think it would benefit if [...] proceed. Cathi Sepulveda Medication Therapy Disease Management ([facility]) Dermatology Clinical Pharmacist 06/02/2024, 3:01 PM * Telephone Encounter - Lyn Henderson OSA - 06/02/2024 2:55 PM EDT Called insurance to clarify denial. The rep stated that the dx code that was submitted L20.84 (below) doesn't not match any clinical notes that were submitted (L23.9). Therefore the PA was denied. yLn Henderson Medication Customer Service Engineer [facility] PH [phone] 06/02/2024,2:56 PM * Telephone Encounter - Lyn Henderson OSA - 06/02/2024 9:38 AM EDT Received a fax that they never received my form. Ref-axed again today. Lyn Henderson Medication Customer Service Engineer [facility] [phone] 06/02/2024,9:39 AM * Telephone Encounter - Cathi [...] BSA Cathi Sepulveda Medication Therapy Disease Management (MTD) Dermatology Clinical Pharmacist 05/29/2024, 8:58 AM * Telephone Encounter - Lyn Henderson OSA - 05/29/2024 8:34 AM EDT Images from the original note were not included. Received fax from insurance and they are requiring a BSA. (Pre-treatment) Thanks Lyn Henderson Medication Customer Service Engineer [facility] [phone] 05/29/2024,8:34 AM * Telephone Encounter - Andreea Zheng [facility] - 05/28/2024 9:10 AM EDT [facility] Dermatology Pre-cert Request Please see Dermatology pre-cert request - route referral message with approval, denial or questionsback to "Dermatology Pharmacist Pool [[id number]]". - Methotrexate not an option due to [...] (high potency) - Oral steroids Andreea Zheng [facility] Medication Therapy Disease Management Dermatology Department 05/28/2024, [...] of Care: specialty medication - route to [id number]. Referral to pharmacist for: Medication Education Only [...] [address] [place] [address] Munira Holm PA-C [address] [place] [phone] 02/15/2025 8:20 AM EST Office Visit Family Dominick Howell [address] [place] [phone] Tamara Bliss CRNP [address] [place] [address] [phone] Health Maintenance Due Date Last Done Comments [...] filedocumented as of this encounter Care Teams Band Saw Marker Relationship Specialty Start Date End Date aTmara Bliss CRNP [address] [place] [phone] PCP - General Nurse Practitioner 02/08/23 documented as of this encounter
--- OUTSIDE RECORDS SUMMARY | 2024-07-02 11:28 | External Medical Summary | Summary of Care ---
Author Name Unknown Organization [facility] Address [address] [facility] [place] [address] Phone [phone] Care Team Providers Care Loaders Name Role Phone Tamara Bliss Primary Care Provider Reason for Visit * Reason Onset Date Comments Test Results 06/01/2024 Encounter Details Date Type Department Care Team (Late st Contact Info) Description 06/01/2024 Telephone Dermatology, Dominick Benitez [address] [place] [address] Munira Holm PA-C [address] [place] [phone] Test Results Allergies Active Allergy Reactions Criticality Noted Date Comments Cocamidopropyl Betaine Rash 02/03/2021 Patch testing 02/03/21 Ortho Tri-Cyclen Nausea/vomiting 08/07/2007 Other Allergy (See Comments) 05/16/2021 Amidoamine, Propolis, DMAPA documented as of this encounter (statuses as of 06/24/2024) Medications No known medicationsdocumented as of this encounter (statuses as of 06/24/2024) Active Problems Problem Noted Date Diagnosed Date Body mass index (BMI) of 40.0 to 44.9 in adult 0 02/25/2023 Overview: Per Obesity protocol Iron deficiency anemia 03/27/2016 documented as of this encounter (statuses as of 06/24/2024) Resolved Problems Problem Noted Date Diagnosed Date Resolved Date Encounter for supervision of other normal 08/07/2007 09/27/2008 Overview (06/21/2015): ICD-10 update of inactive term documented as of this encounter (statuses as of 06/24/2024) Immunizations Name Administration Dates Next Due COVID-19 [...] No 02/08/2023 Does the household have a presbyterian kaseman hospitallar source of income? (Household - for ages [...] encounter Miscellaneous Notes * Telephone Encounter - Paige Duval OSA - 06/01/2024 4:40 PM EDT Pt calling back for results. Read message from Munira verbatim to pt as follows: "Please inform patient that spot on posterior neck was a harmless mole and skin tags removed did come back as skin tags. No further treatment necessary Munira Holm PA-C 06/01/2024 12:43 PM" Pt expressed understanding and states no further questions. * Telephone Encounter - Jenna Selby, MED ASSIST - 06/01/2024 1:43 PM EDT Call #1 - Left message on pt's mobile. Can give her the benign results, if allowable, when she returns call or transfer to nurse line. * Telephone Encounter - Munira Holm PA-C - 06/01/2024 12:43 PM EDT Final Diagnosis A. Skin, Posterior neck, shave: Benign melanocytic nevus, tag-like B. Skin, L neck, tag, excision: Benign fibroepithelial polyp (acrochordon), multiple, one traumatized Please inform patient that spot on posterior neck was a harmless mole and skin tags removed did come back as skin tags. No further treatment necessary Munira Homl PA-C 06/01/2024 12:43 PM documented in this encounter Plan of Treatment Upcoming Encounters Date Type Department Care Team (Late st Contact Info) Description 12/03/2024 11:40 AM EDT Office Visit Dermatology, Dominick Benitez [address] [facility] [address] [place] [address] Munira Holm PA-C [address] [place] [address] 02/15/2025 8:20 AM EST [facility] [address] [place] [phone] Tamara Bliss CRNP [address] [place] [address] Health Maintenance Due Date Last Done Comments [...] filedocumented as of this encounter Care Teams Loaders Relationship Specialty Start Date End Date Tamara Bliss CRNP [address] [place] [address] PCP - General Nurse Practitioner 02/08/23 documented as of this encounter
--- OUTSIDE RECORDS SUMMARY | 2024-07-02 11:28 | External Medical Summary | Summary of Care ---
Author Name Unknown Organization [facility] Address [address] [facility] [place] [address] Phone [phone] Care Team Providers Care Liquid Hydrogen Plant Operator Name Role Phone BlissTamara Primary Care Provider Reason for Visit * Reason Onset Date Comments Precert Approved 05/27/2024 DUPIXENT Encounter Details Date Type Department Care Team (Late st Contact Info) Description 05/27/2024 Telephone Dermatology, Dominick Benitez [address] [place] [address] Munira Holm PA-C [address] [place] [address] Precert Approved (DUPIXENT) Allergies Active Allergy Reactions Criticality Noted Date Comments Cocamidopropyl Betaine Rash 02/03/2021 Patch testing 02/03/21 Ortho Tri-Cyclen Nausea/vomiting 08/07/2007 Other Allergy (See Comments) 05/16/2021 Amidoamine, Propolis, DMAPA documented as of this encounter (statuses as of 06/10/2024) Medications No known medicationsdocumented as of this encounter (statuses as of 06/10/2024) Active Problems Problem Noted Date Diagnosed Date Body mass index (BMI) of 40.0 to 44.9 in adult 0 02/25/2023 Overview: Per Obesity protocol Iron deficiency anemia 03/27/2016 documented as of this encounter (statuses as of 06/10/2024) Resolved Problems Problem Noted Date Diagnosed Date Resolved Date Encounter for supervision of other normal 08/07/2007 09/27/2008 Overview (06/21/2015): ICD-10 update of inactive term documented as of this encounter (statuses as of 06/10/2024) Immunizations Name Administration Dates Next Due COVID-19 [...] Telephone Encounter - Cathi Sepulveda RPh - 06/08/2024 10:45 AM EDT SCORAD 56.4 - please resubmit with this information and let me know if there are any other questions that need to be addressed in PA so it doesn't get denied again Cathi Sepulveda Medication Therapy Disease Management (MTDM) Dermatology Clinical Pharmacist 06/08/2024, 10:45 AM * Telephone Encounter - Munira Holm PA-C - 06/08/2024 9:16 AM EDT Updated the SCORAD in her chart Munira Holm PA-C 06/08/2024 9:16 AM * Telephone Encounter - Cathi Sepulveda RP - 06/05/2024 1:59 PM EDT Images from the original note were not included. Insurance found new reason to deny: Let me know if you are able to update your note to include either of those things Cathi Sepulveda Medication Therapy Disease Management ([facility]) Dermatology Clinical Pharmacist 06/05/2024, 1:59 PM * Telephone Encounter - Samanta Isidro [facility] - 06/05/2024 7:25 AM EDT Was resubmitted on 06/03 with new diagnosis- pending * Telephone Encounter - Cathi Sepulveda RP - 06/03/2024 10:05 AM EDT Are you able to see if you can resubmit? Provider changed dx code to match visit. If not, will appeal. Cathi Sepulveda Medication Therapy Disease Management ([facility]) Dermatology Clinical Pharmacist 06/03/2024, 10:06 AM * Telephone Encounter - Munira Holm PA-C - 06/03/2024 8:37 AM EDT Changed. Munira Holm PA-C 06/03/2024 8:37 AM * Telephone Encounter - Cathi Sepulveda RP - 06/03/2024 8:12 AM EDT Reji Lombardo, Yes, this insurance typically gives us issues so I think it would increase of chance of approval ifthey matched. Cathi Sepulveda Medication Therapy Disease Management ([facility]) Dermatology Clinical Pharmacist 06/03/2024, 8:13 AM [...] proceed. Cathi Sepulveda Medication Therapy Disease Management ([facility]) Dermatology Clinical Pharmacist 06/02/2024, 3:01 PM * Telephone Encounter - Lyn Henderson OSA - 06/02/2024 2:55 PM EDT Called insurance to clarify denial. The rep stated that the dx code that was submitted L20.84 (below) doesn't not match any clinical notes that were submitted (L23.9). Therefore the PA was denied. Lyn Henderson Medication Social Media Designer [facility] [phone] 06/02/2024,2:56 PM * Telephone Encounter - Lyn Henderson OSA - 06/02/2024 9:38 AM EDT Received a fax that they never received my form. Ref-axed again today. Lyn Henderson Medication Social Media Designer [facility] [phone] 06/02/2024,9:39 AM * Telephone Encounter - Cathi [...] a BSA. (Pre-treatment) Thanks Lyn Henderson Medication Social Media Designer [facility] [phone] 05/29/2024,8:34 AM * Telephone Encounter - Andreea Zheng [facility] - 05/28/2024 9:10 AM EDT [facility] Dermatology Pre-cert Request Please see Dermatology pre-cert request - route referral message with approval, denial or questionsback to "Dermatology Pharmacist Pool [[id number]]". - Methotrexate not an option due to [...] of Care: specialty medication - route to [id number]. Referral to pharmacist for: Medication Education Only [...] Office Visit Dermatology, Dominick Benitez [address] [place] [address] Munira Holm PA-C [address] [place] [address] 02/15/2025 8:20 AM EST Office Visit Family [facility], Dominick [address] [place] [phone] [facility] [address] [facility] [phone] Health Maintenance Due Date Last Done Comments [...] filedocumented as of this encounter Care Teams Liquid Hydrogen Plant Operator Relationship Specialty Start Date End Date Tamara Bliss CRNP [address] [place] [address] PCP - General Nurse Practitioner 02/08/23 documented as of this encounter
--- OUTSIDE RECORDS SUMMARY | 2024-07-02 11:28 | External Medical Summary | Summary of Care ---
Author Name Unknown Organization [facility] Address [address] [facility] [place] [address] Phone [phone] Care Team Providers Care Real Estate Development Manager Name Role Phone BlissTamara Primary Care Provider Reason for Visit * Reason Onset Date Comments Precert Denied 05/27/2024 DUPIXENT Encounter Details Date Type Department Care Team (Late st Contact Info) Description 05/27/2024 Telephone Dermatology, Dominick Benitez [address] [place] [address] Munira Holm PA-C [address] [place] [phone] Precert Denied ( DUPIXENT) Allergies Active Allergy Reactions Criticality Noted Date Comments Cocamidopropyl Betaine Rash 02/03/2021 Patch testing 02/03/21 Ortho Tri-Cyclen Nausea/vomiting 08/07/2007 Other Allergy (See Comments) 05/16/2021 Amidoamine, Propolis, DMAPA documented as of this encounter (statuses as of 06/09/2024) Medications No known medicationsdocumented as of this encounter (statuses as of 06/09/2024) Active Problems Problem Noted Date Diagnosed Date Body mass index (BMI) of 40.0 to 44.9 in adult 0 02/25/2023 Overview: Per Obesity protocol Iron deficiency anemia 03/27/2016 documented as of this encounter (statuses as of 06/09/2024) Resolved Problems Problem Noted Date Diagnosed Date Resolved Date Encounter for supervision of other normal 08/07/2007 09/27/2008 Overview (06/21/2015): ICD-10 update of inactive term documented as of this encounter (statuses as of 06/09/2024) Immunizations Name Administration Dates Next Due COVID-19 [...] things Cathi Sepulveda Medication Therapy Disease Management ([facility]) Dermatology Clinical Pharmacist 06/05/2024, 1:59 PM * Telephone Encounter - Samanta Isidro [facility] - 06/05/2024 7:25 AM EDT Was resubmitted on 06/03 with new diagnosis- pending * Telephone Encounter - Cathi Sepulveda RP - 06/03/2024 10:05 AM EDT Are you able to see if you can resubmit? Provider changed dx code to match visit. If not, will appeal. Cathi Sepulvead Medication Therapy Disease Management ([facility]) Dermatology Clinical Pharmacist 06/03/2024, 10:06 AM [...] matched. Cathi Sepulveda Medication Therapy Disease Management ([facility]) Dermatology Clinical Pharmacist 06/03/2024, 8:13 AM [...] proceed. Cathi Sepulveda Medication Therapy Disease Management ([facility]) Dermatology Clinical Pharmacist 06/02/2024, 3:01 PM * Telephone Encounter - Lyn Henderson OSA - 06/02/2024 2:55 PM EDT Called insurance to clarify denial. The rep stated that the dx code that was submitted L20.84 (below) doesn't not match any clinical notes that were submitted (L23.9). Therefore the PA was denied. Lyn Henderson Medication Colon And Rectal Surgeon [facility] [phone] 06/02/2024,2:56 PM * Telephone Encounter - Lyn Henderson OSA - 06/02/2024 9:38 AM EDT Received a fax that they never received my form. Ref-axed again today. Lyn Henderson Medication Colon And Rectal Surgeon [facility] [phone] 06/02/2024,9:39 AM * Telephone Encounter - Cathi [...] a BSA. (Pre-treatment) Thanks Lyn Henderson Medication Colon And Rectal Surgeon [facility] [phone] 05/29/2024,8:34 AM * Telephone Encounter - Andreea Zheng [facility] - 05/28/2024 9:10 AM EDT [facility] Dermatology Pre-cert Request Please see Dermatology pre-cert request - route referral message with approval, denial or questionsback to "Dermatology Pharmacist Pool [[id number]]". - Methotrexate not an option due to [...] of Care: specialty medication - route to [id number]. Referral to pharmacist for: Medication Education Only [...] [address] [place] [address] Munira Holm PA-C [address] [place] [address] 02/15/2025 8:20 AM EST Office Visit Family [facility], Dominick [address] [place] [phone] [facility]iss [facility] [address] [facility] [phone] Health Maintenance Due Date Last Done Comments [...] filedocumented as of this encounter Care Teams Real Estate Development Manager Relationship Specialty Start Date End Date Tamara Bliss CRNP [address] [place] [address] PCP - General Nurse Practitioner 02/08/23 documented as of this encounter
--- OUTSIDE RECORDS SUMMARY | 2024-07-02 11:28 | External Medical Summary | Summary of Care ---
Author Name Unknown Organization [facility] [address] [facility] [place] [address] Phone [phone] Care Team Providers Care Creamery Worker Name Role Phone Tamara Bliss Primary Care Provider Reason for Visit * Reason Onset Date Comments Precert Denied 05/27/2024 DUPIXENT Encounter Details Date Type Department Care Team (Late st Contact Info) Description 05/27/2024 Telephone Dermatology, Dominick Benitez [address] [place] [address] Munira Holm PA-C [address] [place] [address] Precert Denied ( DUPIXENT) Allergies Active Allergy Reactions Criticality Noted Date Comments Cocamidopropyl Betaine Rash 02/03/2021 Patch testing 02/03/21 Ortho Tri-Cyclen Nausea/vomiting 08/07/2007 Other Allergy (See Comments) 05/16/2021 Amidoamine, Propolis, DMAPA documented as of this encounter (statuses as of 06/05/2024) Medications No known medicationsdocumented as of this encounter (statuses as of 06/05/2024) Active Problems Problem Noted Date Diagnosed Date Body mass index (BMI) of 40.0 to 44.9 in adult 0 02/25/2023 Overview: Per Obesity protocol Iron deficiency anemia 03/27/2016 documented as of this encounter (statuses as of 06/05/2024) Resolved Problems Problem Noted Date Diagnosed Date Resolved Date Encounter for supervision of other normal 08/07/2007 09/27/2008 Overview (06/21/2015): ICD-10 update of inactive term documented as of this encounter (statuses as of 06/05/2024) Immunizations Name Administration Dates Next Due COVID-19 [...] Telephone Encounter - Cathi Sepulveda RPh - 06/05/2024 1:59 PM EDT Images from the original note were not included. Insurance found new reason to deny: Let me know if you are able to update your note to include either of those things Cathi Sepulveda Medication Therapy Disease Management (MTDM) Dermatology Clinical Pharmacist 06/05/2024, 1:59 PM * Telephone Encounter - Samanta Isidro RPh - 06/05/2024 7:25 AM EDT Was resubmitted on 06/03 with new diagnosis- pending * Telephone Encounter - Cathi Sepulveda RPh - 06/03/2024 10:05 AM EDT Are you able to see if you can resubmit? Provider changed dx code to match visit. If not, will appeal. Cathi Sepulveda Medication Therapy Disease Management ([facility]) Dermatology Clinical Pharmacist 06/03/2024, 10:06 AM [...] matched. Cathi Sepulveda Medication Therapy Disease Management ([facility]) Dermatology Clinical Pharmacist 06/03/2024, 8:13 AM [...] proceed. Cathi Sepulveda Medication Therapy Disease Management (MTDM) Dermatology Clinical Pharmacist 06/02/2024, 3:01 PM * Telephone Encounter - Lyn Henderson OSA - 06/02/2024 2:55 PM EDT Called insurance to clarify denial. The rep stated that the dx code that was submitted L20.84 (below) doesn't not match any clinical notes that were submitted (L23.9). Therefore the PA was denied. Lyn Henderson Medication Sales Effectiveness Manager [facility] [phone] 06/02/2024,2:56 PM * Telephone Encounter - Lyn Henderson OSA - 06/02/2024 9:38 AM EDT Received a fax that they never received my form. Ref-axed again today. Lyn Henderson Medication Sales Effectiveness Manager [facility] [phone] 06/02/2024,9:39 AM * Telephone Encounter - Cathi Sepulveda RPh - 05/29/2024 11:03 AM EDT BSA 1-3% Cathi Sepulveda Medication Therapy Disease Management (MTDM) Dermatology Clinical Pharmacist 05/29/2024, 11:03 AM * Telephone Encounter - Munira Holm PA-C - 05/29/2024 9:35 AM EDT Addended! She primarily gets it on her scalp and face. So not a lot of surface area but pretty bad in those special sites Munira Holm PA-C 05/29/2024 9:35 AM * Telephone Encounter - Cathi Sepulveda [facility] - 05/29/2024 8:58 AM EDT Insurance requiring BSA Cathi Sepulveda Medication Therapy Disease Management ([facility]) Dermatology Clinical Pharmacist 05/29/2024, 8:58 AM * Telephone Encounter - Lyn Henderson OSA - 05/29/2024 8:34 AM EDT Images from the original note were not included. Received fax from insurance and they are requiring a BSA. (Pre-treatment) Thanks Lyn Henedrson Medication Sales Effectiveness Manager [facility] [phone] 05/29/2024,8:34 AM * Telephone Encounter - Andreea Zheng [facility] - 05/28/2024 9:10 AM EDT [facility] Dermatology Pre-cert Request Please see Dermatology pre-cert request - route referral message with approval, denial or questionsback to "Dermatology Pharmacist Chad [[id number]]". - Methotrexate not an option due to [...] 9:10 AM * Telephone Encounter - Munira Hlom PA-C - 05/27/2024 4:05 PM EDT Dermatology Pre-Cert Request Medication/Disease State Information: Medication: Dupilumab (Dupixent) Initiation: 300mg/2ml Pen - 600mg once then 300mg every two weeks (Day Supply: 8mL per 42 days) Diagnosis (including ICD-10): Atopic dermatitis - Intrinsic (allergic) eczema L20.84 Site of Care: specialty medication - route to [id number]. Referral to pharmacist for: Medication Education Only See corresponding visit note(s) for additional supporting clinical information. Administration Location if Injection: Patient Administered at Home Is the patient in a facility?: No Office Information: Prescriber: Munira Holm documented in this encounter Plan of Treatment Upcoming Encounters Date Type Department Care Team (Late st Contact Info) Description 12/03/2024 11:40 AM EDT [place] [address] [place] [address] Munira Holm PA-C [address] [place] [phone] 02/15/2025 8:20 AM EST Office Visit Family Dominick [place] [address] [place] [address] [phone] Tamara Bliss CRNP [address] [place] [address] [address] Health Maintenance Due Date Last Done Comments [...] filedocumented as of this encounter Care Teams Creamery Worker Relationship Specialty Start Date End Date Tamara Bliss CRNP [address] [facility] [place] [address] PCP - General Nurse Practitioner 02/08/23 documented as of this encounter
--- OUTSIDE RECORDS SUMMARY | 2024-07-02 11:28 | External Medical Summary | Summary of Care ---
Author Name Unknown Organization [facility] Address [address] [place] [address] Phone [phone] Care Team Providers Care Jackhammer Operator Name Role Phone Izaiah Tamara ERVIN Primary Care Provider Reason for Referral * Evaluate & Treat - Unlimited Visits (Within 10 days (routine)) - Pending Review Specialty Diagnoses / Procedures Referred By Rosana cheek Referred To Contact Pharmacist / Pharmacy Diagnoses Intrinsic (allergic) eczema Munira Holm PA-C [address] [place] [address] Phone: tel: fax: Referral ID Status Reason Start Date Expiration Date Visits Requested Visits Authorized [id number] Pending Review Specialty Services Required 06/24/2024 12/21/[phone] Question Answer Referral Priority Within 10 days (routine) Where should this appointment be scheduled? [facility] Referring Provider Role: Specialist Specialty: Derm Reason for Referral: Co-Management Comments Pharmacist Medication Therapy Management: Minimum frequency patient should be seen in person for medication management: as appropriate per clinical condition and patient status By my signature, I understand that my patient Sasha Amaya will have her medication therapy managed by the [facility] Medication Therapy Disease Management [facility] ([facility]) per established policies, procedures, and protocols. I also certify that this referral may serve as an initiation of service for the management of drug therapy in the above noted patient. [facility] providers will be responsible for scheduling patient visits, obtaining appropriate laboratory studies, and adjusting medication management therapy per patient's need, in addition to those roles spelled out in the clinic policy, procedures, and drug management protocols. I understand that the service provided by the [facility] is voluntary and have informed patient that they can refuse the service at their discretion. I am aware that the [facility] Clinic will provide me with a copy of the patient encounter via my [employer]. I authorize the [facility] to carry out these activities on my behalf. I consider this program to be a necessary part of the patient's medical care. Reason for Visit * Reason Comments Dosage Adjustment Via Phone (anticoag Cl inic) Encounter Details Date Type Department Care Team (Late st Contact Info) Description 06/24/2024 1:30 PM EDT Telemedicine Dermatology [address] [address] [place], Pharmacist Dermatology [address] [place] [id number] Intrinsic (allergic) eczema* Allergies Active Allergy Reactions Criticality Noted Date Comments Cocamidopropyl Betaine Rash 02/03/2021 Patch testing 02/03/21 Ortho Tri-Cyclen Nausea/vomiting 08/07/2007 Other Allergy (See Comments) 05/16/2021 Amidoamine, Propolis, DMAPA documented as of this encounter (statuses as of 06/24/2024) Medications Dupixent 300 MG/2ML Subcutaneous Solution Auto-injector [...] mRNA, LNP-s, No Pre serve, 2-Dose Series (170 Systems) 05/05/2021,04/14/2021 HEPATITIS B VACCINE, RECOMB, 20 MCG/ML, [...] No 02/08/2023 Does the household have a [facility] hospitallar source of income? (Household - for [...] AM EDT documented as of this encounter Progress Notes * Cathi Sepulveda, [facility] - 06/24/2024 1:44 PM EDT As per patient preference, connection with the patient via audio only occurred. The patient was informed this was a phone call only visit and was identified by name and date of . The patient agreed to participate. Total call duration was 15 minutes. Clinical Pharmacy Service (Dermatology): Medication Education Dermatology Provider: Munira Holm PA-C Pharmacist Referral for: New Start Visit: Visit 0 ASSESSMENT Atopic dermatitis - Intrinsic (allergic) eczema L20.84 PLAN OF ACTION Medication Regimen: START Dupilumab (Dupixent) Initiation: 300mg/2ml Pen - 600mg once then 300mg every two weeks (Day Supply: 8mL per 42 days) EDUCATION Medication Information: Dupixent The following information was verbally provided to the patient and afterwards, a copy of the ACR medication guide was provided to supplement with more extensive information: Dupixent is within a class of medications known as IL-4 receptor alpha antagonist that works by blocking two proteins (IL-4 and IL-13) that contribute to a type of inflammation that plays a major role in atopic dermatitis, asthma,and chronic rhinosinusitis with nasal polyposis. This medication is av ailable in a subcutaneous injection. Side effects may include but are not limited to injection sitereactions, eye and eyelid inflammation, with redness, swelling and itching, and cold sore reactivation on the mouth or lips. If any of the above-mentioned side effects occur, please inform your physician or dermatology pharmacist so that we can take the next appropriate steps in your care. More serious and rare side effect of the medication is a hypersensitivity reaction that includes anaphylaxis. Patient advised to seek immediate medical attention, discontinue use and contact the clinic if this occurs. Please make your physician aware if you have any eye problems, have a parasitic infection, planningto get any vaccinations, and are or planning to become , or if you have new or changed medications on your medication list as these factors may impact your care plan. This medicationmay take up to 16 weeks for clear or almost clear skin, but itch relief can be provided as quickly as 2-4 weeks. For further inquiries, please refer to the medication information provided to you as well as your dermatology care team. Provided injection technique teaching of Dupixent. Patient was given a verbal demonstration of injection technique, alternation of injection site, side effects and disposal of syringes & needles. Instructed as follows: 1) SET UP: -Remove Dupixent pen from refrigerator at least 45 minutes before injection. Can be stored out of the fridge for 14 days at room temperature. -Have alcohol swab and cotton ball/gauze ready. 2) CHOOSE AND PREPARE INJECTION SITE: - Wash hands well. -Choose a site on your thigh or abdomen (at least 2 inches away from navel) at least 1inch from prior site (rotate sites). -Wipe site with alcohol swab. 3) PREPARE DOSE FOR INJECTION: -Hold pen with green cap up and examine the window to make sure the solution is clear and colorlessto pale yellow. 4) INJECTION: -Remove green cap by pulling it straight off -Gently squeeze an area of prepared site - "pinch an inch". -Place orange end of Pen @ 90 degree angle and flat against raised area of skin and make sure you can see the injection window -Press and hold Dupixent pen onto skin until you can no longer see orange needle cover -Hear CLICK. -Maintain pressure and count for 10-15 seconds. -Ensure yellow indicator appears in the Dupixent window in full view and stops. - Hear SECOND CLICK -Pull pen from your skin in the same angle as you inserted it. -Press cotton ball or gauze over injection site for 10 to 15 seconds. -DO NOT recap pen. Dispose in your sharps container. Rereviewed dosing of medication with starter and maintenance doses and time intervals. Patient encouraged to keep injection calendar to evelia day and site used. Patient encouraged to call with any questions or concerns and to keep next follow up appointment. Follow-Up Appointment(s): Pharmacist: 12 month Physician: 6 month - scheduled for 12/03/24 Cathi Sepulveda RPh Medication Therapy Disease Management Dermatology Department 06/24/2024, 1:44 PM documented in this encounter Plan of Treatment Upcoming Encounters Date Type Department Care Team (Late st Contact Info) Description 12/03/2024 11:40 AM EDT Office [place] [address] [place] [address] Munira Holm PA-C [address] [address] 02/15/2025 8:20 AM EST [facility] [address] [phone] Tamara Bliss CRNP [address] [address] Scheduled Referrals Name Type Priority Associated Diagnoses Orde r Schedule PHARMACIST MEDS THERAPY MGMT REFERRAL OP Referral Within 10 days (routine) Intrinsic (allergic) eczema Ordered: 06/24/2024 Health Maintenance Due Date Last Done Comments [...] this encounter Visit Diagnoses Diagnosis Intrinsic (allergic) eczema- Primary Other atopic dermatitis and related conditions documented in this encounter Care Teams Jackhammer Operator Relationship Specialty Start Date End Date Tamara Bliss CRNP [address] [phone] PCP - General Nurse Practitioner 02/08/23 documented as of this encounter
--- OUTSIDE RECORDS SUMMARY | 2024-07-02 11:28 | External Medical Summary | Summary of Care ---
Author Name Unknown Organization [facility] Address [address] [facility] [address] Phone [phone] Care Team Providers Care Pulley Worker Name Role Phone BlissTamara Primary Care Provider Reason for Visit * Reason Onset Date Comments Precert Denied 05/27/2024 DUPIXENT Encounter Details Date Type Department Care Team (Late st Contact Info) Description 05/27/2024 Telephone Dermatology, [place] [address] [place] [address] Munira Holm PA-C [address] [place] [address] Precert Denied ( DUPIXENT) Allergies Active Allergy Reactions Criticality Noted Date Comments Cocamidopropyl Betaine Rash 02/03/2021 Patch testing 02/03/21 Ortho Tri-Cyclen Nausea/vomiting 08/07/2007 Other Allergy (See Comments) 05/16/2021 Amidoamine, Propolis, DMAPA documented as of this encounter (statuses as of 06/08/2024) Medications No known medicationsdocumented as of this encounter (statuses as of 06/08/2024) Active Problems Problem Noted Date Diagnosed Date Body mass index (BMI) of 40.0 to 44.9 in adult 0 02/25/2023 Overview: Per Obesity protocol Iron deficiency anemia 03/27/2016 documented as of this encounter (statuses as of 06/08/2024) Resolved Problems Problem Noted Date Diagnosed Date Resolved Date Encounter for supervision of other normal 08/07/2007 09/27/2008 Overview (06/21/2015): ICD-10 update of inactive term documented as of this encounter (statuses as of 06/08/2024) Immunizations Name Administration Dates Next Due COVID-19 [...] things Cathi Sepulveda Medication Therapy Disease Management ([facility]) Dermatology Clinical Pharmacist 06/05/2024, 1:59 PM * Telephone Encounter - Samanta Isidro [facility] - 06/05/2024 7:25 AM EDT Was resubmitted on 06/03 with new diagnosis- pending * Telephone Encounter - Cathi Sepulveda RP - 06/03/2024 10:05 AM EDT Are you able to see if you can resubmit? Provider changed dx code to match visit. If not, will appeal. Cathi Sepulveda Medication Therapy Disease Management ([facility]) Dermatology Clinical Pharmacist 06/03/2024, 10:06 AM * [...] matched. Cathi Sepulveda Medication Therapy Disease Management ([facility]) Dermatology Clinical Pharmacist 06/03/2024, 8:13 AM * [...] proceed. Cathi Sepulveda Medication Therapy Disease Management ([facility]) Dermatology Clinical Pharmacist 06/02/2024, 3:01 PM * Telephone Encounter - Lyn Henderson OSA - 06/02/2024 2:55 PM EDT Called insurance to clarify denial. The rep stated that the dx code that was submitted L20.84 (below) doesn't not match any clinical notes that were submitted (L23.9). Therefore the PA was denied. Lyn Henderson Medication Nutrition Faculty Member [facility] [phone] 06/02/2024,2:56 PM * Telephone Encounter - Lyn Henderson OSA - 06/02/2024 9:38 AM EDT Received a fax that they never received my form. Ref-axed again today. Lyn Henderson Medication Nutrition Faculty Member [facility] [phone] 06/02/2024,9:39 AM * Telephone Encounter - Cathi [...] a BSA. (Pre-treatment) Thanks Lyn Henderson Medication Nutrition Faculty Member [facility] [phone] 05/29/2024,8:34 AM * Telephone Encounter - Andreea Zheng [facility] - 05/28/2024 9:10 AM EDT [facility] Dermatology Pre-cert Request Please see Dermatology pre-cert request - route referral message with approval, denial or questionsback to "Dermatology Pharmacist Pool [[id number]]". - Methotrexate not an option due to [...] of Care: specialty medication - route to [id number]. Referral to pharmacist for: Medication Education Only [...] [address] [place] [address] Munira Holm PA-C [address] [place] [address] 02/15/2025 8:20 AM EST Office Visit Family [facility], [place] [address] [phone] [facility]iss [facility] [address] [facility] [phone] Health Maintenance Due Date Last Done Comments [...] filedocumented as of this encounter Care Teams Pulley Worker Relationship Specialty Start Date End Date Tamara Bliss CRNP [address] [address] PCP - General Nurse Practitioner 02/08/23 documented as of this encounter
--- OUTSIDE RECORDS SUMMARY | 2024-07-02 11:28 | External Medical Summary | Summary of Care ---
Author Name Unknown Organization [facility] Address [address] [facility] [place] [address] Phone [phone] Care Team Providers Care Extracorporeal Circulation Specialist Name Role Phone BlissTamara Primary Care Provider Reason for Visit * Reason Onset Date Comments Precert In Process 05/27/2024 16 CHLOYE RXB DUPIXENT Encounter Details Date Type Department Care Team (Late st Contact Info) Description 05/27/2024 Telephone Dermatology, [place] [address] [place] [address] Munira Holm PA-C [address] [place] [address] Precert In Process (16 CHLOYE RXB DUPIXENT) [...] matched. Cathi Sepulveda Medication Therapy Disease Management ([facility]) Dermatology Clinical Pharmacist 06/03/2024, 8:13 [...] proceed. Cathi Sepulveda Medication Therapy Disease Management ([facility]) Dermatology Clinical Pharmacist 06/02/2024, 3:01 PM * Telephone Encounter - Lyn Henderson OSA - 06/02/2024 2:55 PM EDT Called insurance to clarify denial. The rep stated that the dx code that was submitted L20.84 (below) doesn't not match any clinical notes that were submitted (L23.9). Therefore the PA was denied. Lyn Henderson Medication Tin Flopper [facility] [phone] 06/02/2024,2:56 PM * Telephone Encounter - Lyn Henderson OSA - 06/02/2024 9:38 AM EDT Received a fax that they never received my form. Ref-axed again today. Lyn Henderson Medication Tin Flopper [facility] [phone] 06/02/2024,9:39 AM * Telephone Encounter - Cathi [...] a BSA. (Pre-treatment) Thanks Lyn Henderson Medication Tin Flopper [facility] [phone] 05/29/2024,8:34 AM * Telephone Encounter - Andreea Zheng RPh - 05/28/2024 9:10 AM EDT [facility] Dermatology Pre-cert Request Please see Dermatology pre-cert request - route referral message with approval, denial or questionsback to "Dermatology Pharmacist Pool [[id number]]". - Methotrexate not an option due to [...] of Care: specialty medication - route to [id number]. Referral to pharmacist for: Medication Education Only [...] [address] [place] [address] Munira Holm PA-C [address] [place] [address] 02/15/2025 8:20 AM EST Office Visit Family [facility], [place] [address] [phone] Tamara Bliss CRNP [address] [phone] Health Maintenance Due Date Last Done Comments [...] filedocumented as of this encounter Care Teams Extracorporeal Circulation Specialist Relationship Specialty Start Date End Date Tamara Bliss CRNP [address] [phone] PCP - General Nurse Practitioner 02/08/23 documented as of this encounter
--- OUTSIDE RECORDS SUMMARY | 2024-07-02 11:28 | External Medical Summary | Summary of Care ---
Author Name Unknown Organization [facility] Address [address] [facility] [place] [address] Phone [phone] Care Team Providers Care Superintendent Nonselling Name Role Phone BlissTamara Primary Care Provider Reason for Visit * Reason Onset Date Comments Precert In Process 05/27/2024 22 CHLOYE RXB DUPIXENT Encounter Details Date Type Department Care Team (Late st Contact Info) Description 05/27/2024 Telephone Dermatology, [place] [address] [place] [address] Munira Holm PA-C [address] [place] [address] Precert In Process (22 CHLOYE RXB DUPIXENT) Allergies Active Allergy Reactions [...] things Cathi Sepulveda Medication Therapy Disease Management ([facility]) Dermatology Clinical Pharmacist 06/05/2024, 1:59 PM * Telephone Encounter - Samanta Isidro RP - 06/05/2024 7:25 AM EDT Was resubmitted on 06/03 with new diagnosis- pending * Telephone Encounter - Cathi Sepulveda RP - 06/03/2024 10:05 AM EDT Are you able to see if you can resubmit? Provider changed dx code to match visit. If not, will appeal. Cathi Sepulveda Medication Therapy Disease Management ([facility]) Dermatology Clinical Pharmacist 06/03/2024, 10:06 AM * [...] matched. Cathi Sepulveda Medication Therapy Disease Management ([facility]) Dermatology Clinical Pharmacist 06/03/2024, 8:13 [...] proceed. Cathi Sepulveda Medication Therapy Disease Management ([facility]) Dermatology Clinical Pharmacist 06/02/2024, 3:01 PM * Telephone Encounter - Lyn Henderson OSA - 06/02/2024 2:55 PM EDT Called insurance to clarify denial. The rep stated that the dx code that was submitted L20.84 (below) doesn't not match any clinical notes that were submitted (L23.9). Therefore the PA was denied. Lyn Henderson Medication Pick Up Worker [facility] [phone] 06/02/2024,2:56 PM * Telephone Encounter - Lyn Henderson OSA - 06/02/2024 9:38 AM EDT Received a fax that they never received my form. Ref-axed again today. Lyn Henderson Medication Pick Up Worker [facility] [phone] 06/02/2024,9:39 AM * Telephone Encounter - Cathi [...] a BSA. (Pre-treatment) Thanks Lyn Henderson Medication Pick Up Worker [facility] [phone] 05/29/2024,8:34 AM * Telephone Encounter - Andreea Zheng RPh - 05/28/2024 9:10 AM EDT [facility] Dermatology Pre-cert Request Please see Dermatology pre-cert request - route referral message with approval, denial or questionsback to "Dermatology Pharmacist Pool [[id number]]". - Methotrexate not an option due to [...] of Care: specialty medication - route to [id number]. Referral to pharmacist for: Medication Education Only [...] [address] [place] [address] Munira Holm PA-C [address] [phone] 02/15/2025 8:20 AM EST [facility] [address] [phone] Tamara Bliss CRNP [address] [address] Health Maintenance Due Date Last Done Comments [...] filedocumented as of this encounter Care Teams Superintendent Nonselling Relationship Specialty Start Date End Date Tamara Bliss CRNP [address] [phone] PCP - General Nurse Practitioner 02/08/23 documented as of this encounter
--- OUTSIDE RECORDS SUMMARY | 2024-07-02 11:28 | External Medical Summary | Summary of Care ---
Author Name Unknown Organization [facility] Address [address] [facility] [place] [address] Phone [phone] Care Team Providers Care Yard Inspector Name Role Phone BlissTamara Primary Care Provider Reason for Visit * Reason Onset Date Comments Precert Approved 05/27/2024 DUPIXENT Encounter Details Date Type Department Care Team (Late st Contact Info) Description 05/27/2024 Telephone Dermatology, [place] [address] [place] [address] Munira Holm PA-C [address] [place] [address] Precert Approved (DUPIXENT) Allergies Active Allergy Reactions [...] on file Are you (or your family) kahtie eless or worried that you might be [...] things Cathi Sepulveda Medication Therapy Disease Management ([facility]) Dermatology Clinical Pharmacist 06/05/2024, 1:59 PM * Telephone Encounter - Samanta Isidro [facility] - 06/05/2024 7:25 AM EDT Was resubmitted on 06/03 with new diagnosis- pending * Telephone Encounter - Cathi Sepulveda RP - 06/03/2024 10:05 AM EDT Are you able to see if you can resubmit? Provider changed dx code to match visit. If not, will appeal. Cathi Sepulveda Medication Therapy Disease Management ([facility]) Dermatology Clinical Pharmacist 06/03/2024, 10:06 AM [...] the PA was denied. Lyn Henderson Medication Help Aid [facility] [phone] 06/02/2024,2:56 PM * Telephone Encounter - Lyn Henderson OSA - 06/02/2024 9:38 AM EDT Received a fax that they never received my form. Ref-axed again today. Lyn Henderson Medication Help Aid [facility] [phone] 06/02/2024,9:39 AM * Telephone Encounter - Cathi [...] a BSA. (Pre-treatment) Thanks Lyn Henderson Medication Help Aid [facility] [phone] 05/29/2024,8:34 AM * Telephone Encounter - Andreea Zheng [facility] - 05/28/2024 9:10 AM EDT [facility] Dermatology Pre-cert Request Please see Dermatology pre-cert request - route referral message with approval, denial or questionsback to "Dermatology Pharmacist Pool [[id number]]". - Methotrexate not an option due to [...] of Care: specialty medication - route to [id number]. Referral to pharmacist for: Medication Education Only [...] [address] [place] [address] Munira Holm PA-C [address] [place] [address] 02/15/2025 8:20 AM EST Office Visit Family [facility], [place] [address] [phone] Tam[facility]iss CRNP [address] [facility] [phone] Health Maintenance Due Date Last Done Comments [...] filedocumented as of this encounter Care Teams Yard Inspector Relationship Specialty Start Date End Date Tamara Bliss CRNP [address] [address] PCP - General Nurse Practitioner 02/08/23 documented as of this encounter
--- OUTSIDE RECORDS SUMMARY | 2024-07-02 11:28 | External Medical Summary | Summary of Care ---
Author Name Unknown Organization [facility] Address [address] [address] Phone [phone] Care Team Providers Care Piece Dyer Name Role Phone BlissTamara Primary Care Provider Reason for Visit * Reason Onset Date Comments Precert Approved 05/27/2024 DUPIXENT Encounter Details Date Type Department Care Team (Late st Contact Info) Description 05/27/2024 Telephone Dermatology, Dominick Benitez [address] [place] [address] Munira Holm PA-C [address] [place] [address] Precert Approved (DUPIXENT) Allergies Active Allergy Reactions Criticality Noted Date Comments Cocamidopropyl Betaine Rash 02/03/2021 Patch testing 02/03/21 Ortho Tri-Cyclen Nausea/vomiting 08/07/2007 Other Allergy (See Comments) 05/16/2021 Amidoamine, Propolis, DMAPA documented as of this encounter (statuses as of 06/11/2024) Medications No known medicationsdocumented as of this encounter (statuses as of 06/11/2024) Active Problems Problem Noted Date Diagnosed Date Body mass index (BMI) of 40.0 to 44.9 in adult 0 02/25/2023 Overview: Per Obesity protocol Iron deficiency anemia 03/27/2016 documented as of this encounter (statuses as of 06/11/2024) Resolved Problems Problem Noted Date Diagnosed Date Resolved Date Encounter for supervision of other normal 08/07/2007 09/27/2008 Overview (06/21/2015): ICD-10 update of inactive term documented as of this encounter (statuses as of 06/11/2024) Immunizations Name Administration Dates Next Due COVID-19 [...] encounter Miscellaneous Notes * Telephone Encounter - Vilma Israel OSA - 06/11/2024 11:50 AM EDT Left message: pt needs 30 min appt for dupixent. * Telephone Encounter - Cathi Sepulveda RPh - 06/11/2024 10:24 AM EDT Dermatology Pharmacist Appointment Request Please schedule an appointment for med education. Dupixent approved. Medication shipment will be scheduled during med education visit from [facility]. Department & Provider: Dermatology [facility] [[id number]] - Pharmacist Dermatology [place] [[id number]] Patient to be scheduled for visit type:Dosage Adj In Person [[id number]], New Video Visit Home [[id number]],or Telephonic [[id number]] Length of visit: 30 mins Time Frame: within 1-2 weeks Please route this encounter back to Dermatology Pharmacist Chad [[id number]] if unable to schedule patient after 3 attempts. Cathi Sepulveda Medication Therapy Disease Management ([facility]) Dermatology Clinical Pharmacist 06/11/2024, 10:25 AM * Telephone Encounter - Cathi Sepulveda RPh - 06/08/2024 10:45 AM EDT SCORAD 56.4 - please resubmit with this information and let me know if there are any other questions that need to be addressed in PA so it doesn't get denied again Cathi Sepulveda Medication Therapy Disease Management ([facility]) Dermatology Clinical Pharmacist 06/08/2024, 10:45 AM * [...] things Cathi Sepulveda Medication Therapy Disease Management ([facility]) Dermatology Clinical Pharmacist 06/05/2024, 1:59 PM [...] appeal. Cathi Sepulveda Medication Therapy Disease Management ([facility]) Dermatology Clinical Pharmacist 06/03/2024, 10:06 AM [...] matched. Cathi Sepulveda Medication Therapy Disease Management ([facility]) Dermatology Clinical Pharmacist 06/03/2024, 8:13 AM [...] PM * Telephone Encounter - Cathi Sepulveda RP - 06/02/2024 3:01 PM EDT Reji Lombardo, [...] the PA was denied. Lyn Henderson Medication Maintainability Engineer [facility] [phone] 06/02/2024,2:56 PM * Telephone Encounter - Lyn Henderson OSA - 06/02/2024 9:38 AM EDT Received a fax that they never received my form. Ref-axed again today. Lyn Henderson Medication Maintainability Engineer [facility] [phone] 06/02/2024,9:39 AM * Telephone Encounter - Cathi Sepulveda RPh - 05/29/2024 11:03 AM EDT BSA 1-3% Cathi Sepulveda Medication Therapy Disease Management ([facility]) Dermatology Clinical Pharmacist 05/29/2024, 11:03 AM * Telephone Encounter - Munira Homl PA-C - 05/29/2024 9:35 AM EDT Addended! She primarily gets it on her scalp and face. So not a lot of surface area but pretty bad in those special sites Munira Holm PA-C 05/29/2024 9:35 AM * Telephone Encounter - Cathi Sepulveda RPh - 05/29/2024 8:58 AM EDT Insurance requiring BSA Cathi Sepulveda Medication Therapy Disease Management ([facility]) Dermatology Clinical Pharmacist 05/29/2024, 8:58 AM * Telephone Encounter - Lyn Henderson OSA - 05/29/2024 8:34 AM EDT Images from the original note were not included. Received fax from insurance and they are requiring a BSA. (Pre-treatment) Thanks Lyn Henderson Medication Maintainability Engineer [facility] [phone] 05/29/2024,8:34 AM * Telephone Encounter - Andreea Zheng RP - 05/28/2024 9:10 AM EDT [facility] Dermatology Pre-cert Request Please see Dermatology pre-cert request - route referral message with approval, denial or questionsback to "Dermatology Pharmacist Chad [[id number]]". - Methotrexate not an option due to [...] of Care: specialty medication - route to [id number]. Referral to pharmacist for: Medication Education Only [...] [address] [place] [address] Munira Holm PA-C [address] [place] [address] [address] 02/15/2025 8:20 AM EST Office Visit Family [facility] [place] [address] [place] [phone] Tamara Bliss CRNP [address] [address] Health Maintenance Due Date Last Done Comments [...] filedocumented as of this encounter Care Teams Piece Dyer Relationship Specialty Start Date End Date Tamara Bliss CRNP [address] [place] [address] PCP - General Nurse Practitioner 02/08/23 documented as of this encounter
--- OUTSIDE RECORDS SUMMARY | 2024-07-02 11:28 | External Medical Summary | Summary of Care ---
Author Name Unknown Organization [facility] Address [address] [address] Phone [phone] Care Team Providers Care Health Policy Nurse Name Role Phone BlissTamara Primary Care Provider Reason for Visit * Reason Onset Date Comments Precert Denied 05/27/2024 DUPIXENT Encounter Details Date Type Department Care Team (Late st Contact Info) Description 05/27/2024 Telephone Dermatology, Dominick Benitez [address] [place] [address] Munira Holm PA-C [address] [place] [address] Precert Denied ( DUPIXENT) Allergies Active Allergy [...] things Cathi Sepulveda Medication Therapy Disease Management ([facility]) Dermatology Clinical Pharmacist 06/05/2024, 1:59 PM * Telephone Encounter - Samanta Isidro [facility] - 06/05/2024 7:25 AM EDT Was resubmitted on 06/03 with new diagnosis- pending * Telephone Encounter - Cathi Sepulveda RP - 06/03/2024 10:05 AM EDT Are you able to see if you can resubmit? Provider changed dx code to match visit. If not, will appeal. Cathi Sepulveda Medication Therapy Disease Management ([facility]) Dermatology Clinical Pharmacist 06/03/2024, 10:06 AM * Telephone Encounter - Munira Holm PA-C - 06/03/2024 8:37 AM EDT Changed. Munira Holm PA-C 06/03/2024 8:37 AM * Telephone Encounter - Cathi Sepulvdea RP - 06/03/2024 8:12 AM EDT Reji Lombardo, Yes, this insurance typically gives us issues so I think it would increase of chance of approval ifthey matched. Cathi Sepulveda Medication Therapy Disease Management ([facility]) Dermatology Clinical Pharmacist 06/03/2024, 8:13 AM [...] proceed. Cathi Sepulveda Medication Therapy Disease Management ([facility]) Dermatology Clinical Pharmacist 06/02/2024, 3:01 PM * Telephone Encounter - Lyn Henderson OSA - 06/02/2024 2:55 PM EDT Called insurance to clarify denial. The rep stated that the dx code that was submitted L20.84 (below) doesn't not match any clinical notes that were submitted (L23.9). Therefore the PA was denied. Lyn Henderson Medication Integrated Marketing Specialist [facility] [phone] 06/02/2024,2:56 PM * Telephone Encounter - Lyn Henderson OSA - 06/02/2024 9:38 AM EDT Received a fax that they never received my form. Ref-axed again today. Lyn Henderson Medication Integrated Marketing Specialist [facility] [phone] 06/02/2024,9:39 AM * Telephone Encounter - Cathi [...] a BSA. (Pre-treatment) Thanks Lyn Henderson Medication Integrated Marketing Specialist [facility] [phone] 05/29/2024,8:34 AM * Telephone Encounter - Andreea Zheng [facility] - 05/28/2024 9:10 AM EDT [facility] Dermatology Pre-cert Request Please see Dermatology pre-cert request - route referral message with approval, denial or questionsback to "Dermatology Pharmacist Pool [[id number]]". - Methotrexate not an option due to [...] of Care: specialty medication - route to [id number]. Referral to pharmacist for: Medication Education Only [...] [address] [place] [address] Munira Holm PA-C [address] [place] [address] 02/15/2025 8:20 AM EST Office Visit Family [facility], Dominick [address] [place] [phone] [facility] [address] [facility] [phone] Health Maintenance Due Date Last Done Comments [...] filedocumented as of this encounter Care Teams Health Policy Nurse Relationship Specialty Start Date End Date Tamara Bliss CRNP [address] [place] [address] PCP - General Nurse Practitioner 02/08/23 documented as of this encounter
--- OUTSIDE RECORDS SUMMARY | 2024-07-02 11:28 | External Medical Summary | Summary of Care ---
Author Name Unknown Organization [facility] Address [address] [place] [facility] [place] [address] Phone [phone] Care Team Providers Care Subsorter Name Role Phone Tamara Bliss Primary Care Provider Reason for Visit * Reason Comments Follow Up Allergic contact hernan matitis-face, cheeks, hands. Using desonide cream. Never fully went away but seems to be flaring. Following safe list as much as possible. * Evaluate & Treat - Unlimited Visits (Within 10 days (routine)) - Authorized Specialty Diagnoses / Procedures Referred By Rosana cheek Referred To Contact Dermatology Diagnoses Skin mole Tamara Bliss CRNP [address] [facility] [place] [address] Phone: tel: fax: Referral ID Status Reason Start Date Expiration Date Visits Requested Visits Authorized [id number] Authorized Specialty Services Required 03/02/2024 03/02/2025 [id number] Encounter Details Date Type Department Care Team (Late st Contact Info) Description 05/27/2024 3:30 PM EDT Office Visit Dermatology, Dominick Benitez [address] [place] [address] Munira Holm PA-C [address] [address] [address] Intrinsic (allergic) eczema*; Allergic contact dermatitis, unspecified trigger; Skin neoplasm; Accessory skin tags Allergies Active Allergy Reactions Criticality Noted Date [...] mRNA, LNP-s, No Pre serve, 2-Dose Series ([employer]) 05/05/2021,04/14/2021 HEPATITIS B VACCINE, RECOMB, 20 MCG/ML, [...] as of this encounter Progress Notes * Munira Holm PA-C - 05/27/2024 3:30 PM EDT SUBJECTIVE: HPI: Sasha Amaya is a 44 year old female seen as an established patient for follow up for rash. Last appt 02/2023 with Kathya Ham. The patient was previously seen in January 2021 for allergy patch testing due to rash on the hands, face and axilla. Biopsy done in November 2020 showed spongiotic dermatitis. Positive results for DMAPA, Propolis, Cocamidopropyl Betaine, and Amidoamine. Seen several times since her patch testing for flares. Recommended adhering to safe list as well as given desonide cream to use PRN for flares. Per patient rash never fully goes away. Will wax and wane. At times good, other times really flares. Located eyelids, under eye, neck, hands. Feels maybe mascara can cause flares. Using desonide BID daily to a couple times a week for flares. Doing the best she can to follow safe list. Irritated mole on posterior neck. Skin tags on L neck. DERMATOLOGIC HISTORY: H/o skin cancer: None H/o skin disorders: None FAMILY HISTORY: Skin cancer: None Skin disorders: Nephew - eczema REVIEW OF SYSTEMS: SKIN: No other new or changing moles. HEME/LYMPH: No new or enlarging lumps or bumps. CONSTITUTIONAL: No nausea, vomiting, fevers, chills, diarrhea. No recent unintended weight loss, night sweats, appetite or malaise. No past medical history on file. Patien t Active Problem List Diagnosis Iron deficiency anemia Body mass index (BMI) of 40.0 to 44.9 in adult ([facility]) MEDICA TIONS: No current outpatient medications on file. No current facility-administered medications for this visit. ALLERG Y: Cocamidopropyl betaine, Ortho tri-cyclen, and Other allergy (see comments) OBJECTIVE: GEN: Healthy, alert, no distress, appears oriented, pleasant and cooperative. SKIN: Detailed exam of hair, face including lids and lips, neck completed and are normal except: 1. Postauricular scalp, neck , eyelids, hands- erythematous scaly papules 2. A: 4 mm brown fleshy papule on posterior neck. 3. B: Fleshy pink papules on L neck ASSESS MENT/PLAN: 1. Favor allergic contact dermatitis/atopic BSA: 1-3%, Special Site: Scalp: moderate and Face; mild; Status: initial. - continue to follow allergy safe list for recommended products. - continue desonide cream twice a day as needed. Patient educated on potential side effects of topical corticosteroids including: skin atrophy, telangiectasias, striae, acneiform eruption, allergic reaction, irritation, purpura or hypo/hyperpigmentation. Discussed with patient that they should only apply to areas of active rash. Do not treat normal skin preventatively. -Would like to pursue Dupixent. SE's discussed. -SCORAD 56.4 2. Irritated nevus -Due to chronic irritation offered shave removal. Patient agreeable. -Shave of the lesion noted above for removal. Shave removal was recommended which the patient was agreeable to. The procedure, risks, benefits, indications, alternatives, and complications were discussed with the patient and informed consent was obtained by myself. Specifically, the expectation of a permanent scar and risk of possible infection were explained to the patient and understood. Time out called. Patient identified, procedure verified, site identified and verified. Patient and staff present in agreement. Area prepped with alcohol and anesthetized with 2.5 mL of 0.5% lidocaine with epinephrine. Shave via horizontal technique was performed. Hemostasis was obtained with aluminum chloride. Petrolatum and bandage were applied. The patient tolerated the procedure well without complications and with minimal blood loss. Patient instructed in routine post-op care. Specimen(s) sent to pathology. We will call with results and arrange appropriate follow-up care as indicated. 3. Skin tags -Educated on benign nature of these lesions and no further treatment necessary. -Discussed that removal would be considered a cosmetic procedure and discussed charge of $10 a tag plus $95 for tags to be sent to pathology. We agreed to total cost of $115 to be paid at time of check-out. Patient verbalized understanding and agreed to discussed charge. - Removal via snip excision: 2 lesions excised; location(s): see above Removal via snip excision was recommended which the patient was agreeable to. The risks, benefits, indications, alternatives, and complications were discussed, and informed consent was obtained. Specifically, the expectation of a permanent scar and risk of possible infection were explained and understood. We cleaned the site(s) with alcohol and used tissue forceps and sterile scissors to remove tags via snip excision. Hemostasis was obtained with pressure or aluminum chloride as needed. Petrolatum and bandage were applied as needed. The patient tolerated the procedure well without complications and with minimal blood loss. Written wound care instructions were given. Specimen sent to path -PAID AT TIME OF CHECKOUT Follow-up: 6 months Patient Phone Numbers Applicable photos (if any) and chart reviewed by Dr. Emiliano Holm PA-C 05/27/2024 3:30 PM * Isac Mayer MD - 05/27/2024 3:30 PM EDT I have reviewed the relevant notes and photographs taken by JEANINE Day. I have reviewed and agree with the assessment and plan. Isac Mayer MD documented in this encounter Nursing Notes * Jenna Selby MED ASSIST - 05/27/2024 3:30 PM EDT Chief Complaint Patient presents with Follow Up Allergic contact dermatitis-face, cheeks, hands. Using desonide cream. Never fully went away but seems to be flaring. Following safe list as much as possible. documented in this encounter Miscellaneous Notes * Result Encounter Note - Munira Holm PA-C - 06/01/2024 12:44 PM EDT Final Diagnosis A. Skin, Posterior neck, shave: Benign melanocytic nevus, tag-like B. Skin, L neck, tag, excision: Benign fibroepithelial polyp (acrochordon), multiple, one traumatized Please inform patient that spot on posterior neck was a harmless mole and skin tags removed did come back as skin tags. No further treatment necessary Munira Holm PA-C 06/01/2024 12:43 PM documented in this encounter Plan of Treatment Upcoming Encounters Date Type Department Care Team (Late st Contact Info) Description 12/03/2024 11:40 AM EDT Office Visit Dermatology, Dominick Benitez [address] [place] [address] Munira Holm PA-C [address] [address] 02/15/2025 8:20 AM EST Office Visit Family [facility], Dominick [address] [place] [address] [phone] Tamara Bliss CRNP [address] [address] Health Maintenance Due Date Last Done Comments [...] Procedure Name Priority Date/Time Associated Diagnosis Comments DERM EXAM - DERM (IMAGES ONLY, NO REPORT) Routine 05/27/2024 4:01 PM EDT Allergic contact dermatitis, unspecified trigger Skin neoplasm SURGICAL PATHOLOGY Routine 05/27/2024 3: 52 PM EDT Skin neoplasm documented in this encounter Results * DERM EXAM - DERM (IMAGES ONLY, NO REPORT) (05/27/2024 4:01 PM EDT) Narrative 05/27/2024 4:01 PM EDT This is an imaging study not interpreted or resulted by a [facility] or [facility]ologist. Munira Holm PA-C RADIOLOGY ([facility]) Final Result * SURGICAL PATHOLOGY (05/27/2024 3:52 PM EDT) Final Diagnosis A. Skin, Posterior neck, shave: Benign melanocytic nevus, tag-like B. Skin, L neck, tag, excision: Benign fibroepithelial polyp (acrochordon), multiple, one traumatized 05/29/2024 5:05 PM EDT [facility] Clinical History See Order Comments 05/29/2024 5:05 PM EDT [facility] Order Comments A: 4 mm brown fleshy papule on posterior neck. Pre-Op Dx: Irritated nevus. Shave B: Fleshy pink papules on L neck. Pre-Op Dx: Skin tags. Scissor- PAID AT TIME OF CHECKOUT 05/29/2024 5:05 PM EDT LAB[facility]ATORY [facility] Gross Description A. Skin. Received in formalin with a container labeled with "Sasha Amaya", "[id number]", "1980" and " posterior neck". Received is a 0.4 x 0.3 cm skin shave. The skin surface has a wadsworth to pink, dull, mottled fleshy, wrinkled papule that encompasses the entire specimens surface. The underlying tissue is inked. The specimen is intact and submitted in cassette A1. Gross By: MD Cox Skin. Received in formalin with a container labeled with "Sasha Amaya", "[id number]", "1980" and " left neck". Received are multiple tag-like fragments measuring in aggregate 0.5 x 0.4 x 0.1 cm. The specimen is submitted entirely in cassettes B1. Gross By: 05/29/2024 5:05 PM EDT LABORATORY [facility] Sign Out Location Pathologist sign out performed at [facility] ([facility] [place] [address]. 05/29/2024 5:05 PM EDT LABORATORY [facility] Photographic images and diagrams represent thomas findings in this case;they are not intended to replace a complete review of the final diagnostic report. The following statement applies to Flow Cytometry, Histology, In situ Hybridization Assays and Molecular Genetics. This test was [place] [address] and its performance characteristics determined by [facility]. It has not been cleared or approved by the U.S. Food and Drug Administration. The FDA has determined that such clearance or approval is not necessary. This test is used for clinical purposes. It should not be regarded as investigational or for research. Special stains, including histochemical stains, and studies using immunologic and RENETTA methodology (where applicable) are performed with appropriate positive and negative control reactions. 05/29/2024 5:05 PM EDT LABORATORY [facility] Tissue Skin structure / Unknown 05/27/2024 3:52 PM EDT 05/27/2024 3:52 PM EDT Comment:A: 4 mm brown fleshy papule on posterior neck. Pre-Op Dx: Irritated nevus. ShaveB: Fleshy pink papules on L neck. Pre-Op Dx: Skin tags. Scissor- PAID AT TIME OF CHECKOUT Specimen from wound (specimen) Skin structure / Unknown 05/27/2024 3:52 PM EDT 05/27/2024 3:52 PM EDT Comment:A: 4 mm brown fleshy papule on posterior neck. Pre-Op Dx: Irritated nevus. ShaveB: Fleshy pink papules on L neck. Pre-Op Dx: Skin tags. 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
--- OUTSIDE RECORDS SUMMARY | 2024-07-02 11:28 | External Medical Summary | Summary of Care ---
Author Name Unknown Organization [facility] Address [address] [place] [address] Phone [phone] Care Team Providers Care Ict Development Manager Name Role Phone BlissTamara Primary Care Provider Reason for Visit * Reason Onset Date Comments Precert In Process 05/27/2024 16 CHLOYE RXB DUPIXENT Encounter Details Date Type Department Care Team (Late st Contact Info) Description 05/27/2024 Telephone Dermatology, Dominick Benitez [address] [place] [address] Munira Holm PA-C [address] [place] [address] Precert In Process (16 CHLOYE RXB DUPIXENT) [...] encounter Miscellaneous Notes * Telephone Encounter - Samanta Isidro RP [...] matched. Cathi Sepulveda Medication Therapy Disease Management (MTDM) Dermatology Clinical Pharmacist 06/03/2024, 8:13 AM * [...] the PA was denied. Lyn Henderson Medication Relay Dispatcher [facility] PH [phone] 06/02/2024,2:56 PM * Telephone Encounter - Lyn Henderson OSA - 06/02/2024 9:38 AM EDT Received a fax that they never received my form. Ref-axed again today. Lyn Henderson Medication Relay Dispatcher [facility] PH [phone] 06/02/2024,9:39 AM * Telephone Encounter - Cathi [...] BSA Cathi Sepulveda Medication Therapy Disease Management ([facility]) Dermatology Clinical Pharmacist 05/29/2024, 8:58 AM * Telephone Encounter - Lyn Henderson OSA - 05/29/2024 8:34 AM EDT Images from the original note were not included. Received fax from insurance and they are requiring a BSA. (Pre-treatment) Thanks Lyn Henderson Medication Relay Dispatcher [facility] [phone] 05/29/2024,8:34 AM * Telephone Encounter - Andreea Zheng RPh - 05/28/2024 9:10 AM EDT [facility] Dermatology Pre-cert Request Please see Dermatology pre-cert request - route referral message with approval, denial or questionsback to "Dermatology Pharmacist Pool [[id number]]". - Methotrexate not an option due to [...] of Care: specialty medication - route to [id number]. Referral to pharmacist for: Medication Education Only [...] [address] [place] [address] Munira Hlom PA-C [address] [address] 02/15/2025 8:20 AM EST Office Visit [facility] Dominick Howell [address] [place] [phone] Tamara Bliss CRNP [address] [address] Health Maintenance Due Date Last Done Comments [...] filedocumented as of this encounter Care Teams Ict Development Manager Relationship Specialty Start Date End Date Tamara Bliss CRNP [address] [phone] PCP - General Nurse Practitioner 02/08/23 documented as of this encounter
--- OUTSIDE RECORDS SUMMARY | 2024-07-02 11:28 | External Medical Summary | Summary of Care ---
Author Name Unknown Organization [facility] Address [address] [place] [address] Phone [phone] Care Team Providers Care Spud Grader Name Role Phone BlissTamara Primary Care Provider Reason for Visit * Reason Onset Date Comments Precert Approved 05/27/2024 DUPIXENT Encounter Details Date Type Department Care Team (Late st Contact Info) Description 05/27/2024 Telephone Dermatology, Dominick Benitez [address] [place] [address] Munira Holm PA-C [address] [place] [address] Precert Approved (DUPIXENT) Allergies Active Allergy Reactions [...] be scheduled during med education visit from [facility]. Department & Provider: Dermatology Iukaned Rodarte [[id number]] - Pharmacist Dermatology Iuka [[id number]] Patient to be scheduled for visit type:Dosage Adj In Person [[id number]], New Video Visit Home [01350],or Telephonic [57247] Length of visit: 30 mins Time Frame: within 1-2 weeks Please route this encounter back to Dermatology Pharmacist Chad [[id number]] if unable to schedule patient after 3 attempts. Cathi Sepulveda Medication Therapy Disease Management ([facility]) Dermatology Clinical Pharmacist 06/11/2024, 10:25 AM * Telephone Encounter - Cathi Sepulveda RPh - 06/08/2024 10:45 AM EDT [facility]OR[facility] 56.4 - please resubmit with this information and let me know if there are any other questions that need to be addressed in PA so it doesn't get denied again Cathi Sepulveda Medication Therapy Disease Management ([facility]) Dermatology Clinical Pharmacist 06/08/2024, 10:45 AM * [...] things Cathi Sepulveda Medication Therapy Disease Management ([facility]) Dermatology Clinical Pharmacist 06/05/2024, 1:59 PM * [...] appeal. Cathi Sepulveda Medication Therapy Disease Management ([facility]) Dermatology Clinical Pharmacist 06/03/2024, 10:06 AM * [...] matched. Cathi Sepulveda Medication Therapy Disease Management ([facility]) Dermatology Clinical Pharmacist 06/03/2024, 8:13 AM * [...] the PA was denied. Lyn Henderson Medication Bar Host/Hostess [facility] PH [phone] 06/02/2024,2:56 PM * Telephone Encounter - Lyn Henderson OSA - 06/02/2024 9:38 AM EDT Received a fax that they never received my form. Ref-axed again today. Lyn Henderson Medication Bar Host/Hostess [facility] PH [phone] 06/02/2024,9:39 AM * Telephone Encounter - Cathi Sepulveda RPh - 05/29/2024 11:03 AM EDT BSA 1-3% Cathi Sepulveda Medication Therapy Disease Management ([facility]) Dermatology Clinical Pharmacist 05/29/2024, 11:03 AM * [...] BSA Cathi Sepulveda Medication Therapy Disease Management ([facility]) Dermatology Clinical Pharmacist 05/29/2024, 8:58 AM * Telephone Encounter - Lyn Henderson OSA - 05/29/2024 8:34 AM EDT Images from the original note were not included. Received fax from insurance and they are requiring a BSA. (Pre-treatment) Thanks Lyn Henderson Medication Bar Host/Hostess [facility] [phone] 05/29/2024,8:34 AM * Telephone Encounter - Andreea Zheng RP - 05/28/2024 9:10 AM EDT [facility] Dermatology Pre-cert Request Please see Dermatology pre-cert request - route referral message with approval, denial or questionsback to "Dermatology Pharmacist Chad [[id number]]". - Methotrexate not an option due to [...] of Care: specialty medication - route to [id number]. Referral to pharmacist for: Medication Education Only [...] [address] [place] [address] Munira Holm PA-C [address] [address] 02/15/2025 8:20 AM EST Office Visit Family [place] [address] [phone] Tamara Bliss CRNP [address] [address] Health Maintenance Due Date Last Done Comments [...] filedocumented as of this encounter Care Teams Spud Grader Relationship Specialty Start Date End Date Tamara Bliss CRNP [address] [address] PCP - General Nurse Practitioner 02/08/23 documented as of this encounter
--- OUTSIDE RECORDS SUMMARY | 2024-07-02 11:28 | External Medical Summary | Summary of Care ---
Author Name Unknown Organization [facility] Address [address] [place] [address] Phone [phone] Care Team Providers Care Roller Mill Tender Name Role Phone Tamara Bliss Primary Care Provider Reason for Visit * Reason Onset Date Comments Precert Denied 05/27/2024 DUPIXENT Encounter Details Date Type Department Care Team (Late st Contact Info) Description 05/27/2024 Telephone Dermatology, Dominick Beintez [address] [place] [address] Munira Holm PA-C [address] [place] [address] Precert Denied ( DUPIXENT) Allergies Active Allergy [...] appeal. Cathi Sepulveda Medication Therapy Disease Management ([facility]) Dermatology Clinical Pharmacist 06/03/2024, 10:06 AM [...] matched. Cathi Sepulveda Medication Therapy Disease Management ([facility]) Dermatology Clinical Pharmacist 06/03/2024, 8:13 AM [...] Sepulveda RPh - 06/02/2024 3:01 PM EDT Rjei Lombardo, See message prior to this for [...] the PA was denied. Lyn Henderson Medication Paint Tester [facility] [phone] 06/02/2024,2:56 PM * Telephone Encounter - Lyn Henderson OSA - 06/02/2024 9:38 AM EDT Received a fax that they never received my form. Ref-axed again today. Lyn Henderson Medication Paint Tester [facility] [phone] 06/02/2024,9:39 AM * Telephone Encounter - Cathi [...] AM * Telephone Encounter - Cathi Sepulveda [facility] - 05/29/2024 8:58 AM EDT Insurance requiring BSA Cathi Sepulveda Medication Therapy Disease Management ([facility]) Dermatology Clinical Pharmacist 05/29/2024, 8:58 AM * Telephone Encounter - Lyn Henderson OSA - 05/29/2024 8:34 AM EDT Images from the original note were not included. Received fax from insurance and they are requiring a BSA. (Pre-treatment) Thanks Lyn Henderson Medication Paint Tester [facility] [phone] 05/29/2024,8:34 AM * Telephone Encounter - Andreea Zheng [facility] - 05/28/2024 9:10 AM EDT [facility] Dermatology Pre-cert Request Please see Dermatology pre-cert request - route referral message with approval, denial or questionsback to "Dermatology Pharmacist Chad [[id number]]". - Methotrexate not an option due to [...] of Care: specialty medication - route to [id number]. Referral to pharmacist for: Medication Education Only [...] [address] [place] [address] Munira Holm PA-C [address] [phone] 02/15/2025 8:20 AM EST Office Visit Family Dominick Howell [address] [phone] Tamara Bliss CRNP [address] [address] Health Maintenance Due Date Last Done Comments [...] filedocumented as of this encounter Care Teams Roller Mill Tender Relationship Specialty Start Date End Date Tamara Bliss CRNP [address] [facility] [place] [address] PCP - General Nurse Practitioner 02/08/23 documented as of this encounter
--- OUTSIDE RECORDS SUMMARY | 2024-07-02 11:29 | External Medical Summary | Summary of Care ---
Author Name Unknown Organization [facility] Address [address] [place] [address] Phone [phone] Care Team Providers Care Pin Attacher Name Role Phone Bliss, Tamara ERVIN Primary Care Provider Reason for Visit * Reason Onset Date Comments Precert In Process 05/27/2024 10 Lyn R xben Dupixent Encounter Details Date Type Department Care Team (Late st Contact Info) Description 05/27/2024 Telephone Dermatology, Dominick Benitez [address] [place] [address] Munira Holm PA-C [address] [place] [address] Precert In Process (10 Lyn Rxben Dupi... Allergies Active Allergy Reactions Criticality Noted Date Comments Cocamidopropyl Betaine Rash 02/03/2021 Patch testing 02/03/21 Ortho Tri-Cyclen Nausea/vomiting 08/07/2007 Other Allergy (See Comments) 05/16/2021 Amidoamine, Propolis, DMAPA documented as of this encounter (statuses as of 05/29/2024) Medications No known medicationsdocumented as of this encounter (statuses as of 05/29/2024) Active Problems Problem Noted Date Diagnosed Date Body mass index (BMI) of 40.0 to 44.9 in adult 0 02/25/2023 Overview: Per Obesity protocol Iron deficiency anemia 03/27/2016 documented as of this encounter (statuses as of 05/29/2024) Resolved Problems Problem Noted Date Diagnosed Date Resolved Date Encounter for supervision of other normal 08/07/2007 09/27/2008 Overview (06/21/2015): ICD-10 update of inactive term documented as of this encounter (statuses as of 05/29/2024) Immunizations Name Administration Dates Next Due COVID-19 [...] encounter Miscellaneous Notes * Telephone Encounter - Munira Holm PA-C - 05/29/2024 9:35 AM EDT Addended! She primarily gets it on her scalp and face. So not a lot of surface area but pretty bad in those special sites Munira Holm PA-C 05/29/2024 9:35 AM * Telephone Encounter - Cathi Sepulveda RP - 05/29/2024 8:58 AM EDT Insurance requiring BSA Cathi Sepulveda Medication Therapy Disease Management (MTDM) Dermatology Clinical Pharmacist 05/29/2024, 8:58 AM * Telephone Encounter - Lyn Henderson OSA - 05/29/2024 8:34 AM EDT Images from the original note were not included. Received fax from insurance and they are requiring a BSA. (Pre-treatment) Thanks Lyn Henderson Medication [facility] [facility] [phone] 05/29/2024,8:34 AM * Telephone Encounter - Andreea Zheng RPh - 05/28/2024 9:10 AM EDT [facility] Dermatology Pre-cert Request Please see Dermatology pre-cert request - route referral message with approval, denial or questionsback to "Dermatology Pharmacist Pool [[id number]]". - Methotrexate not an option due to [...] of Care: specialty medication - route to [id number]. Referral to pharmacist for: Medication Education Only [...] [address] [place] [address] Munira Holm PA-C [address] [address] 02/15/2025 8:20 AM EST Office Visit Family Lynda, Dominick [address] [phone] Tamara Bliss CRNP [address] [address] Health Maintenance Due Date Last Done Comments [...] filedocumented as of this encounter Care Teams Pin Attacher Relationship Specialty Start Date End Date [facility]iss CRNP [address] [facility] [place] [phone] PCP - General Nurse Practitioner 02/08/23 documented as of this encounter
--- OUTSIDE RECORDS SUMMARY | 2024-07-02 11:29 | External Medical Summary | Summary of Care ---
Author Name Unknown Organization [facility] Address [address] [facility] [place] [address] Phone [phone] Care Team Providers Care Lift Manager Name Role Phone Tamara Bliss Primary Care Provider Reason for Visit * Reason Onset Date Comments Test Results 06/01/2024 Encounter Details Date Type Department Care Team (Late st Contact Info) Description 06/01/2024 Telephone Dermatology, Dominick Benitez [address] [place] [address] Munira Holm PA-C [address] [place] [phone] Test Results Allergies Active Allergy Reactions Criticality Noted Date Comments Cocamidopropyl Betaine Rash 02/03/2021 Patch testing 02/03/21 Ortho Tri-Cyclen Nausea/vomiting 08/07/2007 Other Allergy (See Comments) 05/16/2021 Amidoamine, Propolis, DMAPA documented as of this encounter (statuses as of 06/01/2024) Medications No known medicationsdocumented as of this encounter (statuses as of 06/01/2024) Active Problems Problem Noted Date Diagnosed Date Body mass index (BMI) of 40.0 to 44.9 in adult 0 02/25/2023 Overview: Per Obesity protocol Iron deficiency anemia 03/27/2016 documented as of this encounter (statuses as of 06/01/2024) Resolved Problems Problem Noted Date Diagnosed Date Resolved Date Encounter for supervision of other normal 08/07/2007 09/27/2008 Overview (06/21/2015): ICD-10 update of inactive term documented as of this encounter (statuses as of 06/01/2024) Immunizations Name Administration Dates Next Due COVID-19 [...] No 02/08/2023 Does the household have a [facility] source of income? (Household - for [...] Visit Dermatology, Dominick Benitez [address] [facility] [address] [place] [address] Munira Holm PA-C [address] [address] 02/15/2025 8:20 AM EST [facility] [address] [phone] Tamara Bliss CRNP [address] [address] Health Maintenance Due Date Last Done Comments [...] filedocumented as of this encounter Care Teams Lift Manager Relationship Specialty Start Date End Date Tamara Bliss CRNP [address] [address] PCP - General Nurse Practitioner 02/08/23 documented as of this encounter
--- OUTSIDE RECORDS SUMMARY | 2024-07-02 11:29 | External Medical Summary | Summary of Care ---
Author Name Unknown Organization [facility] Address [address] [place] [address] Phone [phone] Care Team Providers Care Advertising Rep Name Role Phone Izaiah Tamara ERVIN Primary Care Provider Reason for Visit * Reason Onset Date Comments Precert In Process 05/27/2024 10 Lyn R xben Dupixent Encounter Details Date Type Department Care Team (Late st Contact Info) Description 05/27/2024 Telephone Dermatology, Dominick Benitez [address] [place] [address] Munira Holm PA-C [address] [place] [address] Precert In Process (10 Lyn Rxben Dupi... Allergies Active Allergy Reactions Criticality Noted Date Comments Cocamidopropyl Betaine Rash 02/03/2021 Patch testing 02/03/21 Ortho Tri-Cyclen Nausea/vomiting 08/07/2007 Other Allergy (See Comments) 05/16/2021 Amidoamine, Propolis, DMAPA documented as of this encounter (statuses as of 06/02/2024) Medications No known medicationsdocumented as of this encounter (statuses as of 06/02/2024) Active Problems Problem Noted Date Diagnosed Date Body mass index (BMI) of 40.0 to 44.9 in adult 0 02/25/2023 Overview: Per Obesity protocol Iron deficiency anemia 03/27/2016 documented as of this encounter (statuses as of 06/02/2024) Resolved Problems Problem Noted Date Diagnosed Date Resolved Date Encounter for supervision of other normal 08/07/2007 09/27/2008 Overview (06/21/2015): ICD-10 update of inactive term documented as of this encounter (statuses as of 06/02/2024) Immunizations Name Administration Dates Next Due COVID-19 [...] encounter Miscellaneous Notes * Telephone Encounter - Lyn Henderson OSA - 06/02/2024 9:38 AM EDT Received a fax that they never received my form. Ref-axed again today. Lyn Henderson Medication J2Ee Developer [facility] [phone] 06/02/2024,9:39 AM * Telephone Encounter - Cathi Sepulveda [facility] - 05/29/2024 11:03 AM EDT BSA 1-3% Cathi Sepulveda Medication Therapy Disease Management ([facility]) Dermatology Clinical Pharmacist 05/29/2024, 11:03 AM * [...] BSA Cathi Sepulveda Medication Therapy Disease Management ([facility]) Dermatology Clinical Pharmacist 05/29/2024, 8:58 AM * Telephone Encounter - Lyn Henderson OSA - 05/29/2024 8:34 AM EDT Images from the original note were not included. Received fax from insurance and they are requiring a BSA. (Pre-treatment) Thanks Lyn Henderson Medication J2Ee Developer [facility] [phone] 05/29/2024,8:34 AM * Telephone Encounter - Andreea Zheng RP - 05/28/2024 9:10 AM EDT [facility] Dermatology Pre-cert Request Please see Dermatology pre-cert request - route referral message with approval, denial or questionsback to "Dermatology Pharmacist Chad [[id number]]". - Methotrexate not an option due to [...] of Care: specialty medication - route to [id number]. Referral to pharmacist for: Medication Education Only [...] AM EDT Office Visit Dermatology, Dominick Benitez [address] [place] [address] Munira Holm PA-C [address] [address] 02/15/2025 8:20 AM EST Office Visit [facility] [address] [phone] Tamara Bliss CRNP [address] [phone] Health Maintenance Due Date Last Done Comments [...] filedocumented as of this encounter Care Teams Advertising Rep Relationship Specialty Start Date End Date Tamara Bliss CRNP [address] [address] PCP - General Nurse Practitioner 02/08/23 documented as of this encounter
--- OUTSIDE RECORDS SUMMARY | 2024-07-02 11:29 | External Medical Summary | Summary of Care ---
Author Name Unknown Organization [facility] Address [address] [place] [address] Phone [phone] Care Team Providers Care Ice Cream Scooper Name Role Phone BlissTamara Primary Care Provider Reason for Visit * Reason Onset Date Comments Precert Denied 05/27/2024 Dupixent Encounter Details Date Type Department Care Team (Late st Contact Info) Description 05/27/2024 Telephone Dermatology, Dominick Benitez [address] [place] [address] Munira Holm PA-C [address] [place] [address] Precert Denied (Dupixent) Allergies Active Allergy Reactions [...] the PA was denied. Lyn Henderson Medication Senior Managing Director [facility] [phone] 06/02/2024,2:56 PM * Telephone Encounter - Lyn Henderson OSA - 06/02/2024 9:38 AM EDT Received a fax that they never received my form. Ref-axed again today. Lyn Henderson Medication Senior Managing Director [facility] PH [phone] 06/02/2024,9:39 AM * Telephone Encounter - Cathi [...] a BSA. (Pre-treatment) Thanks Lyn Henderson Medication Senior Managing Director [facility] PH [phone] 05/29/2024,8:34 AM * Telephone Encounter - Andreea Zheng [facility] - 05/28/2024 9:10 AM EDT [facility] Dermatology Pre-cert Request Please see Dermatology pre-cert request - route referral message with approval, denial or questionsback to "Dermatology Pharmacist Pool [[id number]]". - Methotrexate not an option due to [...] of Care: specialty medication - route to [id number]. Referral to pharmacist for: Medication Education Only See corresponding visit note(s) for additional supporting clinical information. Administration Location if Injection: Patient Administered at Home Is the patient in a facility?: No Office Information: Prescriber: Munira Holm documented in this encounter Plan of Treatment Upcoming Encounters Date Type Department Care Team (Late st Contact Info) Description 12/03/2024 11:40 AM EDT Office Visit Dermatology, [facility] [address] [place] [phone] Munira Holm PA-C [address] [place] [address] 02/15/2025 8:20 AM EST Office Visit Family Practice, Dominick [address] [phone] Tamara Bliss CRNP [address] [address] Health Maintenance Due Date Last Done [...] filedocumented as of this encounter Care Teams Ice Cream Scooper Relationship Specialty Start Date End Date Tamara Bliss CRNP [address] [address] PCP - General Nurse Practitioner 02/08/23 documented as of this encounter
--- OUTSIDE RECORDS SUMMARY | 2024-07-02 11:29 | External Medical Summary | Summary of Care ---
Author Name Unknown Organization [facility] Address [address] [facility] [place] [place] [address] Phone [phone] Care Team Providers Care Washer Engineer Name Role Phone Tamara Bliss Primary Care [...] Diagnoses Skin mole Tamara Bliss CRNP [address] [facility] [place] [address] Phone: tel: fax: Referral ID Status Reason Start Date Expiration Date Visits Requested Visits Authorized [id number] Authorized Specialty Services Required 03/02/2024 03/02/[phone] Encounter Details Date Type Department Care Team (Late st Contact Info) Description 05/27/2024 3:30 PM EDT Office Visit Dermatology, Dominick Benitez [address] [place] [address] Munira Holm PA-C [address] [place] [address] Allergic contact dermatitis, unspecified trigger*; Skin neoplasm; Accessory skin tags Allergies Active Allergy Reactions Criticality Noted Date Comments Cocamidopropyl Betaine Rash 02/03/2021 Patch testing 02/03/21 Ortho Tri-Cyclen Nausea/vomiting 08/07/2007 Other Allergy (See Comments) 05/16/2021 Amidoamine, Propolis, DMAPA documented as of this encounter (statuses as of 05/28/2024) Medications No known medicationsdocumented as of this encounter (statuses as of 05/28/2024) Active Problems Problem Noted Date Diagnosed Date Body mass index (BMI) of 40.0 to 44.9 in adult 0 02/25/2023 Overview: Per Obesity protocol Iron deficiency anemia 03/27/2016 documented as of this encounter (statuses as of 05/28/2024) Resolved Problems Problem Noted Date Diagnosed Date Resolved Date Encounter for supervision of other normal 08/07/2007 09/27/2008 Overview (06/21/2015): ICD-10 update of inactive term documented as of this encounter (statuses as of 05/28/2024) Immunizations Name Administration Dates Next Due COVID-19 [...] (BMI) of 40.0 to 44.9 in adult ([facility]) MEDICA TIONS: No current outpatient medications on [...] neck ASSESS MENT/PLAN: 1. Favor allergic contact dermatitis - continue to follow allergy safe list [...] -Would like to pursue Dupixent. SE's discussed. 2. Irritated nevus -Due to chronic irritation [...] Dr. Emiliano Holm PA-C 05/27/2024 3:30 PM documented in this encounter Nursing Notes * Jenna Selby MED ASSIST - 05/27/2024 3:30 PM EDT Chief Complaint Patient presents with Follow Up Allergic contact dermatitis-face, cheeks, hands. Using desonide cream. Never fully went away but seems to be flaring. Following safe list as much as possible. documented in this encounter Plan of Treatment Upcoming Encounters Date Type Department Care Team (Late st Contact Info) Description 12/03/2024 11:40 AM EDT Office [place] [place] [address] [facility] [address] [place] [address] Munira Holm PA-C [address] [place] [address] 02/15/2025 8:20 AM EST [facility] [address] [place] [phone] Tamara Bliss CRNP [address] [place] [address] Pending Results Name Type Priority Associated Diagnoses Date /Time SURGICAL PATHOLOGY Pathology Routine Skin neoplasm 05/27/2024 3:52 PM EDT Health Maintenance Due Date Last Done Comments [...] Allergic contact dermatitis, unspecified trigger Skin neoplasm documented in this encounter Results * DERM EXAM - DERM (IMAGES ONLY, NO REPORT) (05/27/2024 4:01 PM EDT) Narrative Scheduling, Silent - 05/27/2024 4:01 PM EDT This is an imaging study not interpreted or resulted by a [facility] or [employer] contracted radiologist. 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
--- OUTSIDE RECORDS SUMMARY | 2024-07-02 11:29 | External Medical Summary | Summary of Care ---
Author Name Unknown Organization [facility] Address [address] [place] [address] Phone [phone] Care Team Providers Care Veneer Gluer Name Role Phone Tamara Bliss Primary Care [...] Diagnoses Skin mole Tamara Bliss CRNP [address] [facility] [place] [address] Phone: tel: fax: Referral ID Status Reason Start Date Expiration Date Visits Requested Visits Authorized [id number] Authorized Specialty Services Required 03/02/2024 03/02/[phone] Encounter Details Date Type Department Care Team (Late st Contact Info) Description 05/27/2024 3:30 PM EDT Office Visit Dermatology, Dominick Benitez [address] [place] [address] Munira Holm PA-C [address] [place] [address] [address] Allergic contact dermatitis, unspecified trigger*; Skin neoplasm; [...] (BMI) of 40.0 to 44.9 in adult ([facility]) MEDICA TIONS: No current outpatient medications on [...] [address] [place] [address] Munira Holm PA-C [place] [address] 02/15/2025 8:20 AM EST Office Visit [facility] [address] [place] [address] [phone] Tamara Bliss CRNP [address] [phone] Pending Results Name Type Priority Associated Diagnoses [...] study not interpreted or resulted by a [employer] or [employer] contracted radiologist. 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
--- OUTSIDE RECORDS SUMMARY | 2024-07-02 11:29 | External Medical Summary | Summary of Care ---
Author Name Unknown Organization [facility] Address [address] [facility] [place] [address] Phone [phone] Care Team Providers Care Dopeman Name Role Phone Bliss, Tamara ERVIN Primary Care Provider Encounter Details Date Type Department Care Team (Latest Contact Info) Description 04/17/2024 1:17 PM EST - 04/17/2024 11:59 PM EST Hospital Encounter Radiology, [address] [place] [address] Arrived Discharge Disposition: Home - Self Care Allergies Active Allergy Reactions Criticality Noted Date Comments Cocamidopropyl Betaine Rash 02/03/2021 Patch testing 02/03/21 Ortho Tri-Cyclen Nausea/vomiting 08/07/2007 Other Allergy (See Comments) 05/16/2021 Amidoamine, Propolis, DMAPA documented as of this encounter (statuses as of 04/18/2024) Medications No known medicationsdocumented as of this encounter (statuses as of 04/18/2024) Active Problems Problem Noted Date Diagnosed Date Body mass index (BMI) of 40.0 to 44.9 in adult 0 02/25/2023 Overview: Per Obesity protocol Iron deficiency anemia 03/27/2016 documented as of this encounter (statuses as of 04/18/2024) Resolved Problems Problem Noted Date Diagnosed Date Resolved Date Encounter for supervision of other normal 08/07/2007 09/27/2008 Overview (06/21/2015): ICD-10 update of inactive term documented as of this encounter (statuses as of 04/18/2024) Immunizations Name Administration Dates Next Due COVID-19 [...] AM EDT documented as of this encounter Plan of Treatment Upcoming Encounters Date Type Department Care Team (Late st Contact Info) Description 02/15/2025 8:20 AM EST Office Visit Family [facility] [place] [address] [place] [address] [phone] Tamara Bliss CRNP [address] [place] [address] [address] 02/19/2025 8:20 AM EST Office Visit Dermatology, Dominick Benitez [address] [place] [address] Kathya Ham PA-C [address] [place] [address] [address] Pending Results Name Type Priority Associated Diagnoses Date /Time MAMMOGRAM SCREENING [place] Medical Imaging Routine Encounter for screening mammogram for breast cancer 04/17/2024 1:47 PM EST Scheduled Orders Name Type Priority Associated Diagnoses Orde r Schedule MAMMOGRAM SCREENING [place] Medical Imaging Routine Encounter for screening mammogram for breast cancer 1 Occurrences starting 04/17/2024 until 04/17/2024 Health Maintenance Due Date Last Done Comments COVID-19 Vaccine ( season) 2023 05/05/2021, 04/14/2021 Mammogram 04/12/2024 04/12/2023, 11/18, 04/22/2020, Additional history exists Depression Screening 02/13/2025 02/14/2024 Lipid Panel 04/22/2025 04/22/2020, 01/27/2016 Diabetes Screening [...] as of this encounter Visit Diagnoses Diagnosis Encounter for screening mammogram for breast cancer documented in this encounter Care Teams Dopeman Relationship Specialty Start Date End Date Tamara Bliss CRNP [address] [address] [address] PCP - General Nurse Practitioner 02/08/23 documented as of this encounter
--- OUTSIDE RECORDS SUMMARY | 2024-07-02 11:29 | External Medical Summary | Summary of Care ---
Author Name Unknown Organization [facility] Address [address] [facility] [place] [address] Phone [phone] Care Team Providers Care Greenkeeper Name Role Phone Tamara Bliss Primary Care [...] Diagnoses Skin mole Tamara Bliss CRNP 21 [facility] [place] [address] Phone: tel: fax: Referral ID Status Reason Start Date Expiration Date Visits Requested Visits Authorized [id number] Authorized Specialty Services Required 03/02/2024 03/02/[phone] Encounter Details Date Type Department Care Team (Late st Contact Info) Description 05/27/2024 3:30 PM EDT Office Visit Dermatology, Dominick Benitez [address] [place] [address] Munira Holm PA-C [address] [place] [address] [address] Allergic contact dermatitis, unspecified trigger*; Skin neoplasm; [...] (BMI) of 40.0 to 44.9 in adult ([facility]) MEDICA TIONS: No current outpatient medications [...] [address] [place] [address] Munira Holm PA-C [address] [place] [address] 02/15/2025 8:20 AM EST Office Visit [facility] Dominick Howell [address] [place] [phone] Tamara Bliss CRNP [address] [place] [address] [address] Pending Results Name Type Priority Associated Diagnoses [...] REPORT) (05/27/2024 4:01 PM EDT) Narrative Scheduling, - 05/27/2024 4:01 PM EDT This is an imaging study not interpreted or resulted by a [employer] or [employer] contracted radiologist. 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
--- OUTSIDE RECORDS SUMMARY | 2024-07-02 11:29 | External Medical Summary | Summary of Care ---
Author Name Unknown Organization [facility] Address [address] [facility] [place] [address] Phone [phone] Care Team Providers Care Machinist Helper Name Role Phone Izaiah Tamara ERVIN Primary Care Provider Reason for Visit * Reason Onset Date Comments Precert In Process 05/27/2024 10 Lyn R xben Dupixent Encounter Details Date Type Department Care Team (Late st Contact Info) Description 05/27/2024 Telephone Dermatology, Dominick Benitez [address] [place] [address] Munira Holm PA-C [address] [place] [address] Precert In Process (10 Lyn Rxben Dupi... [...] encounter Miscellaneous Notes * Telephone Encounter - Andreea Zheng, [facility] - 05/28/2024 9:10 AM EDT [facility] Dermatology Pre-cert Request Please see Dermatology pre-cert request - route referral message with approval, denial or questionsback to "Dermatology Pharmacist Pool [[id number]]". - Methotrexate not an option due to [...] of Care: specialty medication - route to [facility]. Referral to pharmacist for: Medication Education Only [...] [address] [place] [address] Munira Holm PA-C [address] [place] [address] 02/15/2025 8:20 AM EST Office Visit Family Dominick Howell [address] [place] [phone] Tamara Bliss CRNP [address] [place] [address] Health Maintenance Due Date Last Done Comments [...] filedocumented as of this encounter Care Teams Machinist Helper Relationship Specialty Start Date End Date Tamara Bliss CRNP [address] [place] [address] PCP - General Nurse Practitioner 02/08/23 documented as of this encounter
--- OUTSIDE RECORDS SUMMARY | 2024-07-02 11:29 | External Medical Summary | Summary of Care ---
Author Name Unknown Organization [facility] Address [address] [facility] [place] [address] Phone [phone] Care Team Providers Care Mac Artist Name Role Phone Bliss, Tamara ERVIN Primary Care Provider Reason for Visit * Reason Onset Date Comments Precert In Process 05/27/2024 10 Lyn R xben Dupixent Encounter Details Date Type Department Care Team (Late st Contact Info) Description 05/27/2024 Telephone Dermatology, Dominick Benitez [address] [place] [address] Munira Holm PA-C [address] [place] [address] Precert In Process (10 Lyn Rxben Dupi... [...] BSA Cathi Sepulveda Medication Therapy Disease Management ([facility]) Dermatology Clinical Pharmacist 05/29/2024, 8:58 AM * Telephone Encounter - Lyn Henderson OSA - 05/29/2024 8:34 AM EDT Images from the original note were not included. Received fax from insurance and they are requiring a BSA. (Pre-treatment) Thanks Lyn Henderson Medication Molder Bench [facility] [phone] 05/29/2024,8:34 AM * Telephone Encounter - Andreea Zheng RPh - 05/28/2024 9:10 AM EDT [facility] Dermatology Pre-cert Request Please see Dermatology pre-cert request - route referral message with approval, denial or questionsback to "Dermatology Pharmacist Pool [[id number]]". - Methotrexate not an option due to [...] of Care: specialty medication - route to [id number]. Referral to pharmacist for: Medication Education Only [...] Visit Dermatology, Dominick Benitez [address] [facility] [address] [place] [address] Munira Holm PA-C [address] [place] [address] 02/15/2025 8:20 AM EST Office Visit Family Dominick Howell [address] [place] [address] [phone] Tamara Bliss CRNP [address] [place] [address] Health Maintenance Due Date Last Done Comments [...] filedocumented as of this encounter Care Teams Mac Artist Relationship Specialty Start Date End Date Tamara Bliss CRNP [address] [phone] PCP - General Nurse Practitioner 02/08/23 documented as of this encounter
--- OUTSIDE RECORDS SUMMARY | 2024-07-02 11:29 | External Medical Summary | Summary of Care ---
Author Name Unknown Organization [facility] Address [address] [place] [address] Phone [phone] Care Team Providers Care Journalism Professor Name Role Phone Izaiah Tamara ERVIN Primary Care Provider Reason for Visit * Reason Onset Date Comments Med Request 05/22/2024 Appointment 05/22/2024 Encounter Details Date Type Department Care Team (Late st Contact Info) Description 05/22/2024 Telephone Access Center, [place] [address] [facility] *DO NOT REMOVE THIS DEPARTMENT* [place], [place] [id number] [address] ADDRESS AVAILABLE Med Request; Appointment Allergies Active Allergy Reactions Criticality Noted Date [...] encounter Miscellaneous Notes * Telephone Encounter - Kathya Ham PA-C - 06/01/2024 7:03 AM EDT Patient seen in office. * Telephone Encounter - Jenna Selby MED ASSIST - 05/22/2024 3:29 PM EDT Kathya - you last saw this pt in 02/2023. Would you have any suggestions for a change in topical? Pt is scheduled in November with Maribell, for a skin mole but has been added to wait list for sooner appt. * Telephone Encounter - Beatrice Okeefe OSA - 05/22/2024 3:02 PM EDT Patient stated her cream doesn't seem to be working any longer not sure if she now needs something with steroids in it. Pls contact patient to discuss a different medication until she can be seen. May need to be seen sooner than available appointments documented in this encounter Plan of Treatment Upcoming Encounters Date Type Department Care Team (Late st Contact Info) Description 12/03/2024 11:40 AM EDT Office Visit Dermatology, Dominick Benitez [address] [place] [address] Munira Holm PA-C [address] [place] [address] 02/15/2025 8:20 AM EST Office Visit Family PracticeDomin[facility] [address] [phone] Tamara Bliss CRNP [address] [phone] Health Maintenance Due Date Last Done Comments [...] filedocumented as of this encounter Care Teams Journalism Professor Relationship Specialty Start Date End Date Tamara Bliss CRNP [address] [phone] PCP - General Nurse Practitioner 02/08/23 documented as of this encounter
--- OUTSIDE RECORDS SUMMARY | 2024-07-02 11:29 | External Medical Summary | Summary of Care ---
Author Name Unknown Organization [facility] Address [address] [facility] [place] [address] Phone [phone] Care Team Providers Care Frankfurter Inspector Name Role Phone BlissTamara Primary Care Provider Reason for Visit * Reason Onset Date Comments Precert Denied 05/27/2024 Dupixent Encounter Details Date Type Department Care Team (Late st Contact Info) Description 05/27/2024 Telephone Dermatology, Dominick Benitez [address] [place] [address] Munira Holm PA-C [address] [place] [address] Precert Denied (Dupixent) Allergies Active Allergy Reactions [...] matched. Cathi Sepulveda Medication Therapy Disease Management ([facility]) Dermatology Clinical Pharmacist 06/03/2024, 8:13 AM [...] proceed. Cathi Sepulveda Medication Therapy Disease Management ([facility]) Dermatology Clinical Pharmacist 06/02/2024, 3:01 PM * Telephone Encounter - Lyn Henderson OSA - 06/02/2024 2:55 PM EDT Called insurance to clarify denial. The rep stated that the dx code that was submitted L20.84 (below) doesn't not match any clinical notes that were submitted (L23.9). Therefore the PA was denied. Lyn Henderson Medication Pattern Developer [facility] [phone] 06/02/2024,2:56 PM * Telephone Encounter - Lyn Henderson OSA - 06/02/2024 9:38 AM EDT Received a fax that they never received my form. Ref-axed again today. Lyn Henderson Medication Pattern Developer [facility] [phone] 06/02/2024,9:39 AM * Telephone Encounter - Cathi Sepulveda RPh - 05/29/2024 11:03 AM EDT BSA 1-3% Catih Sepulveda Medication Therapy Disease Management ([facility]) Dermatology [...] a BSA. (Pre-treatment) Thanks Lyn Henderson Medication Pattern Developer [facility] [phone] 05/29/2024,8:34 AM * Telephone Encounter - Andreea Zheng [facility] - 05/28/2024 9:10 AM EDT [facility] Dermatology Pre-cert Request Please see Dermatology pre-cert request - route referral message with approval, denial or questionsback to "Dermatology Pharmacist Pool [[id number]]". - Methotrexate not an option due to [...] (high potency) - Oral steroids Andreea Zheng [facility] Medication Therapy Disease Management Dermatology Department 05/28/2024, [...] of Care: specialty medication - route to [id number]. Referral to pharmacist for: Medication Education Only [...] [address] [place] [address] Munira Holm PA-C [address] [place] [address] 02/15/2025 8:20 AM EST Office Visit Family Dominick Howell [address] [place] [address] [phone] Tamara Bliss CRNP [address] [phone] Health Maintenance Due Date Last Done Comments [...] filedocumented as of this encounter Care Teams Frankfurter Inspector Relationship Specialty Start Date End Date Tamara Bliss CRNP [address] [phone] PCP - General Nurse Practitioner 02/08/23 documented as of this encounter
--- OUTSIDE RECORDS SUMMARY | 2024-07-02 11:29 | External Medical Summary | Summary of Care ---
Author Name Unknown Organization [facility] [address] [address] Phone [phone] Care Team Providers Care Chain Sales Representative Name Role Phone Bliss, Tamara ERVIN Primary Care Provider Reason for Visit * Reason Onset Date Comments Precert In Process 05/27/2024 10 Lyn R xben Dupixent Encounter Details Date Type Department Care Team (Late st Contact Info) Description 05/27/2024 Telephone Dermatology, Dominick Benitez [address] [place] [address] Munira Holm PA-C [address] [place] [address] Precert In Process (10 Lyn Rxben Dupi... [...] a BSA. (Pre-treatment) Thanks Lyn Henderson Medication Tar Kettle Runner [facility] [phone] 05/29/2024,8:34 AM * Telephone Encounter - Andreea Zheng RPh - 05/28/2024 9:10 AM EDT [facility] Dermatology Pre-cert Request Please see Dermatology pre-cert request - route referral message with approval, denial or questionsback to "Dermatology Pharmacist Pool [[id number]]". - Methotrexate not an option due to [...] of Care: specialty medication - route to [id number]. Referral to pharmacist for: Medication Education Only [...] [address] [place] [address] Munira Holm PA-C [address] [place] [address] 02/15/2025 8:20 AM EST Office Visit Family Lynda, Dominick [address] [place] [phone] Tamara Bliss CRNP [address] [place] [address] Health Maintenance Due Date Last Done Comments [...] filedocumented as of this encounter Care Teams Chain Sales Representative Relationship Specialty Start Date End Date Tamara Bliss CRNP [address] [facility] [place] [phone] PCP - General Nurse Practitioner 02/08/23 documented as of this encounter
--- OUTSIDE RECORDS SUMMARY | 2024-07-02 11:29 | External Medical Summary | Summary of Care ---
Author Name Unknown Organization [facility] Address [address] [place] [address] Phone [phone] Care Team Providers Care Rotary Bar Operator Name Role Phone Tamara Bliss Karla ERVIN Primary Care Provider Encounter Details Date Type Department Care Team (Latest Contact Info) Description 05/27/2024 4:01 PM EDT - 05/27/2024 11:59 PM EDT Hospital Encounter Radiology Film File [address] [place] [address] Arrived Discharge Disposition: Home - Self Care [...] Office Visit Dermatology, Dominick Benitez [address] [place] [address] Munira Holm PA-C [address] [place] [address] 02/15/2025 8:20 AM EST Office Visit Family PracticeDominick [address] [place] [address] [phone] Tamara Bliss CRNP [address] [address] Health Maintenance Due Date Last Done Comments [...] study not interpreted or resulted by a [employer] or [employer] contracted radiologist. Munira Holm PA-C RADIOLOGY (RAD GENERAL) Final Result documented in this encounter Care Teams Rotary Bar Operator Relationship Specialty Start Date End Date Tamara Bliss CRNP [address] [place] [address] PCP - General Nurse Practitioner 02/08/23 documented as of this encounter
--- OUTSIDE RECORDS SUMMARY | 2024-07-02 11:29 | External Medical Summary | Summary of Care ---
Author Name Unknown Organization [facility] Address [address] [place] [address] Phone [phone] Care Team Providers Care Records Assistant Name Role Phone BlissTamara Primary Care Provider Reason for Visit * Reason Onset Date Comments Precert Denied 05/27/2024 Dupixent Encounter Details Date Type Department Care Team (Late st Contact Info) Description 05/27/2024 Telephone Dermatology, Dominick Benitez [address] [place] [address] Munira Holm PA-C [address] [place] [address] Precert Denied (Dupixent) Allergies Active Allergy Reactions [...] the PA was denied. Lyn Henderson Medication Hydroelectric Plant Mechanical Engineer [facility] [phone] 06/02/2024,2:56 PM * Telephone Encounter - Lyn Henderson OSA - 06/02/2024 9:38 AM EDT Received a fax that they never received my form. Ref-axed again today. Lyn Henderson Medication Hydroelectric Plant Mechanical Engineer [facility] PH [phone] 06/02/2024,9:39 AM * Telephone Encounter - Cathi [...] a BSA. (Pre-treatment) Thanks Lyn Henderson Medication Hydroelectric Plant Mechanical Engineer [facility] PH [phone] 05/29/2024,8:34 AM * Telephone Encounter - Andreea Zheng [facility] - 05/28/2024 9:10 AM EDT [facility] Dermatology Pre-cert Request Please see Dermatology pre-cert request - route referral message with approval, denial or questionsback to "Dermatology Pharmacist Pool [[id number]]". - Methotrexate not an option due to [...] of Care: specialty medication - route to [id number]. Referral to pharmacist for: Medication Education Only [...] [address] [place] [phone] Munira Holm PA-C [address] [place] [address] 02/15/2025 8:20 AM EST Office Visit Family Practice, Dominick [address] [place] [address] [phone] Tamara Bliss CRNP [address] [address] [...] filedocumented as of this encounter Care Teams Records Assistant Relationship Specialty Start Date End Date Tamara Bliss CRNP [address] [address] PCP - General Nurse Practitioner 02/08/23 documented as of this encounter
--- OUTSIDE RECORDS SUMMARY | 2024-07-02 11:29 | External Medical Summary | Summary of Care ---
Author Name Unknown Organization [facility] Address [address] [facility] [place] [address] Phone [phone] Care Team Providers Care Rfid Engineer Name Role Phone Tamara Bliss Primary Care Provider Reason for Visit * Reason Onset Date Comments Test Results 06/01/2024 Encounter Details Date Type Department Care Team (Late st Contact Info) Description 06/01/2024 Telephone Dermatology, Dominick Benitez [address] [place] [address] Munira Holm PA-C [address] [place] [phone] Test Results Allergies Active Allergy Reactions Criticality [...] No 02/08/2023 Does the household have a [facility] source of income? (Household - for ages [...] Visit Dermatology, Dominick Benitez [address] [facility] [address] [place] [address] Munira Holm PA-C [address] [place] [address] 02/15/2025 8:20 AM EST [facility] [place] [phone] Tamara Bliss CRNP [address] [address] Health Maintenance Due Date Last Done Comments [...] filedocumented as of this encounter Care Teams Rfid Engineer Relationship Specialty Start Date End Date Tamara Bliss CRNP [address] [place] [address] PCP - General Nurse Practitioner 02/08/23 documented as of this encounter
--- OUTSIDE RECORDS SUMMARY | 2024-07-02 11:29 | External Medical Summary | Summary of Care ---
Author Name Unknown Organization [facility] Address [address] [place] [facility] [place] [address] Phone [phone] Care Team Providers Care Brokerage Coordinator Name Role Phone Tamara Bliss Primary Care [...] Diagnoses Skin mole Tamara Bliss CRNP [address] [facility] [place] [address] Phone: tel: fax: Referral ID Status Reason Start Date Expiration Date Visits Requested Visits Authorized [id number] Authorized Specialty Services Required 03/02/2024 03/02/[phone] Encounter Details Date Type Department Care Team (Late st Contact Info) Description 05/27/2024 3:30 PM EDT Office Visit Dermatology, Dominick Benitez [address] [place] [address] Munira Holm PA-C [address] [place] [address] Intrinsic (allergic) eczema*; Allergic contact dermatitis, unspecified [...] mRNA, LNP-s, No Pre serve, 2-Dose Series ([employer]) 05/05/2021,04/14/2021 HEPATITIS B VACCINE, RECOMB, 20 MCG/ML, [...] (BMI) of 40.0 to 44.9 in adult ([facility]) MEDICA TIONS: No current outpatient [...] CHECKOUT Follow-up: 6 months Patient Phone Numbers mobile [phone] Applicable photos (if any) and chart reviewed [...] [address] [place] [address] uMnira Holm PA-C [address] [place] [address] 02/15/2025 8:20 AM EST Office Visit Family [facility], Dominick [address] [place] [phone] Tamara Bliss CRNP [address] [address] Health Maintenance Due Date Last Done Comments COVID-19 Vaccine (2023- season) 2023 05/05/2021, 04/14/2021 Depression Screening 02/13/2025 [...] study not interpreted or resulted by a Kidboxer or [employer]head contracted radiologist. Munira Holm PA-C RADIOLOGY ([facility]) Final Result * SURGICAL PATHOLOGY (05/27/2024 [...] OF CHECKOUT 05/29/2024 5:05 PM EDT [facility] Gross Description A. Skin. Received in formalin with a container labeled with "Sasha Amaya", "[id number]", "1980" and " posterior neck". Received is a 0.4 x 0.3 cm skin shave. The skin surface has a wadsworth to pink, dull, mottled fleshy, wrinkled papule that encompasses the entire specimens surface. The underlying tissue is inked. The specimen is intact and submitted in cassette A1. Gross By: MD Cox Skin. Received in formalin with a container labeled with "Sasha Amaya", "[id number]", "1980" and " left neck". Received are multiple tag-like fragments measuring in aggregate 0.5 x 0.4 x 0.1 cm. The specimen is submitted entirely in cassettes B1. Gross By: 05/29/2024 5:05 PM EDT [facility] Sign Out Location Pathologist sign out performed at [facility] ([facility]), [address] [place] [address]. 05/29/2024 5:05 PM EDT [facility] Photographic images and diagrams represent thomas findings in this case;they are not intended to replace a complete review of the final diagnostic report. The following statement applies to Flow Cytometry, Histology, In situ Hybridization Assays and Molecular Genetics. This test was developed and performed at [address] [place] [address] and its performance characteristics determined by [facility]. It has not been cleared or approved [...] control reactions. 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
--- OUTSIDE RECORDS SUMMARY | 2024-07-02 11:29 | External Medical Summary | Summary of Care ---
Author Name Unknown Organization [facility] Address [address] [facility] [facility] [place] [address] Phone [phone] Care Team Providers Care Fence Maker Name Role Phone Bliss, Tamara ERVIN Primary Care Provider Reason for Visit * Reason Onset Date Comments Precert In Process 05/27/2024 10 Lyn R xben Dupixent Encounter Details Date Type Department Care Team (Late st Contact Info) Description 05/27/2024 Telephone Dermatology, Dominick Benitez [address] [place] [address] Munira Holm PA-C [address] [place] [address] Precert In Process (10 Lyn Rxben Dupi... [...] a BSA. (Pre-treatment) Thanks Lyn Henderson Medication Technical Training Instructor [facility] PH [phone] 05/29/2024,8:34 AM * Telephone Encounter - Andreea Zheng RP - 05/28/2024 9:10 AM EDT [facility] Dermatology Pre-cert Request Please see Dermatology pre-cert request - route referral message with approval, denial or questionsback to "Dermatology Pharmacist Pool [[id number]]". - Methotrexate not an option due to [...] of Care: specialty medication - route to [id number]. Referral to pharmacist for: Medication Education Only See corresponding visit note(s) for additional supporting clinical information. Administration Location if Injection: Patient Administered at Home Is the patient in a facility?: No Office Information: Prescriber: Munira Bridgens documented in this encounter Plan of Treatment Upcoming Encounters Date Type Department Care Team (Late st Contact Info) Description 12/03/2024 11:40 AM EDT Office Visit Dermatology, Sole Almendarez Dominick [address] [place] [address] Munira Holm PA-C [address] [place] [address] 02/15/2025 8:20 AM EST Office Visit Family Practice, Dominick [address] [place] [phone] Tamara Bliss CRNP [address] [place] [address] Health Maintenance Due Date Last Done Comments [...] filedocumented as of this encounter Care Teams Fence Maker Relationship Specialty Start Date End Date Tamara Bliss CRNP [address] [place] [address] [phone] PCP - General Nurse Practitioner 02/08/23 documented as of this encounter
--- OUTSIDE RECORDS SUMMARY | 2024-07-02 11:30 | External Medical Summary | Summary of Care ---
Author Name Unknown Organization [facility] Address [address] [facility] [place] [address] Phone [phone] Care Team Providers Care Zipper Measurer Name Role Phone Tamara Bliss Primary Care Provider Reason for Visit * Reason Onset Date Comments Physical-Exam Yrly. Has a yrly CPE form for work to be done. Discuss a few concerns with provider. Medication Administration 02/14/2024 Flu an d/or Pneumo Inj Encounter Details Date Type Department Care Team (Late st Contact Info) Description 02/14/2024 8:20 AM EST Office Visit [facility] [address] [place] [phone] Tamara Bliss CRNP [address] [facility] [place] [address] Physical exam, annual*; Need for prophylactic vaccination and inoculation against influenza; Encounter for screening mammogram for breast cancer; Screening for depression; Body mass index (BMI) of 40.0 to 44.9 in adult (HCC) Allergies Active Allergy Reactions Criticality Noted Date Comments Cocamidopropyl Betaine Rash 02/03/2021 Patch testing 02/03/21 Ortho Tri-Cyclen Nausea/vomiting 08/07/2007 Other Allergy (See Comments) 05/16/2021 Amidoamine, Propolis, DMAPA documented as of this encounter (statuses as of 02/14/2024) Medications Meclizine HCl .5 MG Oral Tablet (Antivert)Indic ations:Lighthea dedness Take 2 Tablets by mouth 3 times a day as needed for Dizziness. 30 Tablet 1 4 02/14/20 24 Discontinu ed(Patient preference /discontin uation) Benzonatate 100 MG Oral Capsule (Denae Muhammad)Indicati ons:Acute cough Take 1 Capsule by mouth 3 times a day as needed for Cough. Do not cut, crush, or chew. 30 Capsule 4 02/14/20 24 Discontinu ed(Medicat ion List Clean Up) documented as of this encounter (statuses as of 02/14/2024) Active Problems Problem Noted Date Diagnosed Date Body mass index (BMI) of 40.0 to 44.9 in adult 0 02/25/2023 Overview: Per Obesity protocol Iron deficiency anemia 03/27/2016 documented as of this encounter (statuses as of 02/14/2024) Resolved Problems Problem Noted Date Diagnosed Date Resolved Date Encounter for supervision of other normal 08/07/2007 09/27/2008 Overview (06/21/2015): ICD-10 update of inactive term documented as of this encounter (statuses as of 02/14/2024) Immunizations Name Administration Dates Next Due COVID-19 mRNA, LNP-s, No Pre serve, 2-Dose Series ([employer]) 05/05/2021,04/14/2021 HEPATITIS B VACCINE, RECOMB, 20 MCG/ML, ADULT (HEPLISAV-B) 03/15/2023,02/08/2023 Meningococcal Conjugate Vacc ine (Menactra/Menveo) 03/22/2008 Seasonal Influenza, PF, 6 M & above, IM , (FluLaval or Fluzone) 01/24/2022,01/02/2019,01/13/2018 Seasonal Influenza, Trivalen t, (IIV3), PF, (Fluzone) 02/14/2024 TDAP (age 10 and older)(Boostrix) 10/23/2018 documented as of this encounter Social History Tobacco Use Types Packs/Day Years Used Date Smoking Tobacco: Former Smokeless Tobacco: Never Tobacco Cessation:Counseling Given: No Alcohol Use Standard Drinks/Week Comments No 0 [...] Sign Reading Time Taken Comments Blood Pressure 102/82 02/14/2024 8:55 AM EST Pulse 77 02/14/2024 8:31 AM EST Temperature 36.9 °C (98.5 °F) 02/14/2024 8:31 AM ES T Respiratory Rate - - Oxygen Saturation 96% 02/14/2024 8:31 AM EST Inhaled Oxygen Concentration - - Weight 99.2 kg (218 lb 11.2 oz) 02/14/2024 8:31 AM EST Height - - Body Mass Index 42.71 01/17/2024 8:40 AM EST documented in this encounter Progress Notes * Tamara Bliss CRNP - 02/14/2024 8:43 AM EST Images from the original note were not included. History of Present Illness Sasha Amaya is a 43 year old female that presents for Physical-Exam (Yrly. Has a yrly CPE formfor work to be done. Discuss a few concerns with provider. ) and Medication Administration (Flu and/or Pneumo Inj) Sasha presents to the clinic for a routine physical. She notes that she still has occasional vertigo but does not treat it with anything. She notes it has improved. She is concerned regarding her weight gain. She plans to increase her activity and stop baking sweets and eating so much junk food. She declines referral at this time for nutrition. She is agreeable to flu vaccine. She is agreeable to schedule a mammogram. Review of Systems Constitutional: Negative for activity change, fatigue and fever. Respiratory: Negative for chest tightness and shortness of breath. Cardiovascular: Negative for chest pain. Gastrointestinal: Negative for constipation and diarrhea. Genitourinary: Negative for difficulty urinating and menstrual problem. Neurological: Positive for dizziness (vertigo intermittently). Psychiatric/Behavioral: Negative for sleep disturbance. Physical Exam BP 102/82 | Pulse 77 | Temp 98.5 °F (36.9 °C) (Tympanic) | Wt 218 lb 11.2 oz (99.2 kg) | LMP 03/21/2016 | SpO2 96% | BMI 42.71 kg/m² | BSA 2.05 m² Physical Exam Vitals and nursing note reviewed. Constitutional: Appearance: Normal appearance. HENT: Head: Normocephalic. Right Ear: External ear normal. Left Ear: External ear normal. Nose: Nose normal. Mouth/Throat: Mouth: Mucous membranes are moist. Eyes: Pupils: Pupils are equal, round, and reactive to light. Cardiovascular: Rate and Rhythm: Normal rate and regular rhythm. Pulses: Normal pulses. Heart sounds: Normal heart sounds. Pulmonary: Effort: Pulmonary effort is normal. Musculoskeletal: Cervical back: Full passive range of motion without pain and normal range of motion. Skin: General: Skin is warm and dry. Capillary Refill: Capillary refill takes less than 2 seconds. Neurological: General: No focal deficit present. Mental Status: She is alert and oriented to person, place, and time. GCS: GCS eye subscore is 4. GCS verbal subscore is 5. GCS motor subscore is 6. Psychiatric: Attention and Perception: Attention normal. Mood and Affect: Mood normal. Speech: Speech normal. Behavior: Behavior normal. Behavior is cooperative. Thought Content: Thought content normal. Cognition and Memory: Cognition normal. Judgment: Judgment normal. I have reviewed most recent labs BMP and Magnesium Assessment and Plan Physical exam, annual (Primary) -doing well, works at [employer] Need for prophylactic vaccination and inoculation against influenza - INFLUENZA VAC, TRIVALENT, (IIV3), PF, 0.5 ML (FLUZONE) Encounter for screening mammogram for breast cancer - MAMMOGRAM SCREENING [place] B[place]ATER[place]; Future; Expected date: 04/12/2024 Screening for depression - DEPRESSION SCREENING PERFORMED Body mass index (BMI) of 40.0 to 44.9 in adult (HCC) -plans on cutting snacks and increasing exercise Follow Up: Return in about 1 year (around 02/13/2025). Wrap-Up Follow Up: Return in about 1 year (around 02/13/2025). Time: I spent a total of 20-29 minutes (exact time 20 mins) on the date of service in preparation, delivery, and documentation of the care provided to Sasha Amaya excluding any time spent in the performance of separately billed services. * Marina Rivera CMA - 02/14/2024 8:33 AM EST Pre-Administration Time Out Procedure Performed: Yes Patient Identified (Ask Name/Date of ): Yes Does the patient have a fever greater than 101 degrees today? No Patient allergic to latex? No Has the patient ever fainted after receiving an injection? No VFC Stock: No Immunization(s) verified: Yes, Immunization Name: Flu, VIS Sheet(s) given: Yes Verified Side and Site: Yes Verified Shot(s) with Parent(s)/Patient: Yes documented in this encounter Nursing Notes * Marina Rivera CMA - 02/14/2024 8:29 AM EST Chief Complaint Patient presents with Physical-Exam Yrly. Has a yrly CPE form for work to be done. Discuss a few concerns with provider. Medication Administration Flu and/or Pneumo Inj Patient has been verbally educated on the need or importance of COVID and has declined topic(s). documented in this encounter Plan of Treatment Upcoming Encounters Date Type Department Care Team (Late st Contact Info) Description 04/17/2024 1:30 [place] [address] 02/15/2025 8:20 AM EST Office Visit Family Dominick Howell [address] [phone] Tamara Bliss CRNP [address] [address] Scheduled Orders Name Type Priority Associated Diagnoses Orde r Schedule MAMMOGRAM SCREENING [place] BILATERAL Medical Imaging Routine Encounter for screening mammogram for breast cancer Expected: 04/12/2024, Expires: 03/16/2025 Health Maintenance Due Date Last Done Comments [...] as of this encounter Visit Diagnoses Diagnosis Physical exam, annual- Primary Routine general medical examination at a health care facility Need for prophylactic vaccination and inoculation against influenza Encounter for screening mammogram for breast cancer Screening for depression Body mass index (BMI) of 40.0 to 44.9 in adult (HCC) documented in this encounter Care Teams Zipper Measurer Relationship Specialty Start Date End Date Tamara Bliss CRNP [address] [address] PCP - General Nurse Practitioner 02/08/23 documented as of this encounter"
--- OUTSIDE RECORDS SUMMARY | 2024-07-02 11:30 | External Medical Summary | Summary of Care ---
Author Name Unknown Organization [facility] Address [address] [facility] [address] Phone [phone] Care Team Providers Care Forming Press Operator Name Role Phone Tamara Bliss Primary Care Provider Reason for Referral * Evaluate & Treat - Unlimited Visits (Within 10 days (routine)) - Pending Review Specialty Diagnoses / Procedures Referred By Rosana cheek Referred To Contact Dermatology Diagnoses Skin mole Tamara Bliss CRNP [address] [address] Phone: tel: fax: Referral ID Status Reason Start Date Expiration Date Visits Requested Visits Authorized [id number] Pending Review Specialty Services Required 03/02/[phone] Question Answer Referral Priority Within 10 days (routine) Where should this appointment be scheduled? [facility] Are you referring the patient for Mohs Surgery and have a current positive skin cancer biopsy result? No What is the reason for the patient referral? Rash/Skin Check/Eval of Lesion or Mole Reason for Visit * Reason Onset Date Comments Referral 02/28/2024 Encounter Details Date Type Department Care Team ([facility] st Contact Info) Description 02/28/2024 Telephone Dominick Nolasco [address] [phone] Tamara Bliss CRNP [address] [address] Referral Allergies Active Allergy Reactions Criticality Noted Date Comments Cocamidopropyl Betaine Rash 02/03/2021 Patch testing 02/03/21 Ortho Tri-Cyclen Nausea/vomiting 08/07/2007 Other Allergy (See Comments) 05/16/2021 Amidoamine, Propolis, DMAPA documented as of this encounter (statuses as of 03/02/2024) Medications No known medicationsdocumented as of this encounter (statuses as of 03/02/2024) Active Problems Problem Noted Date Diagnosed Date Body mass index (BMI) of 40.0 to 44.9 in adult 0 02/25/2023 Overview: Per Obesity protocol Iron deficiency anemia 03/27/2016 documented as of this encounter (statuses as of 03/02/2024) Resolved Problems Problem Noted Date Diagnosed Date Resolved Date Encounter for supervision of other normal 08/07/2007 09/27/2008 Overview (06/21/2015): ICD-10 update of inactive term documented as of this encounter (statuses as of 03/02/2024) Immunizations Name Administration Dates Next Due COVID-19 mRNA, LNP-s, No Pre serve, 2-Dose Series ([employer]) 05/05/2021,04/14/2021 HEPATITIS B VACCINE, RECOMB, 20 MCG/ML, [...] encounter Miscellaneous Notes * Telephone Encounter - Freda Vidal OSA - 02/28/2024 5:17 PM EST PT needs a referral to be scheduled with [facility]. PT had a physical done on Feb 13 with PCP. Please send referral for PT. documented in this encounter Plan of Treatment Upcoming Encounters Date Type Department Care Team (Late st Contact Info) Description 04/17/2024 1:30 PM EST Appointment Radiology, Dominick [address] [address] 02/15/2025 8:20 AM EST Office Visit Family Practice, Dominick [address] [phone] Tamara Bliss CRNP [address] [address] Scheduled Referrals Name Type Priority Associated Diagnoses Orde r Schedule DERMATOLOGY REFERRAL OP Referral Within 10 days (routine) Skin mole Ordered: 03/02/2024 Health Maintenance Due Date Last Done Comments [...] as of this encounter Visit Diagnoses Diagnosis Skin mole- Primary Benign neoplasm of skin, site unspecified documented in this encounter Care Teams Forming Press Operator Relationship Specialty Start Date End Date Tamara Bliss CRNP [address] [address] PCP - General Nurse Practitioner 02/08/23 documented as of this encounter
--- OUTSIDE RECORDS SUMMARY | 2024-07-02 11:30 | External Medical Summary | Summary of Care ---
Author Name Unknown Organization [facility] Address [address] [place] [address] Phone [phone] Care Team Providers Care Channeler Runner Name Role Phone Tamara Bliss Primary Care Provider Reason for Referral * Evaluate & Treat - Unlimited Visits (Within 10 days (routine)) - Pending Review Specialty Diagnoses / Procedures Referred By Rosana cheek Referred To Contact Dermatology Diagnoses Skin mole Tamara Bliss CRNP [address] [address] Phone: tel: fax: Referral ID Status Reason Start Date Expiration Date Visits Requested Visits Authorized [id number] Pending Review Specialty Services Required 03/02/2024 999 [...] Encounter Details Date Type Department Care Team ([facility] st Contact Info) Description 02/28/2024 Telephone Dominick Nolasco [address] [phone] Tamara Bliss CRNP [address] [address] [...] mRNA, LNP-s, No Pre serve, 2-Dose Series (naaptol) 05/05/2021,04/14/2021 HEPATITIS B VACCINE, RECOMB, 20 MCG/ML, [...] EST Appointment Radiology, Dominick [address] [address] 02/15/2025 8:20 AM EST Office Visit Family Practice, Dominick [address] [phone] Tamara Bliss CRNP [address] [address] Scheduled Referrals Name Type Priority Associated Diagnoses [...] unspecified documented in this encounter Care Teams Channeler Runner Relationship Specialty Start Date End Date Tamara Bliss CRNP [address] [address] PCP - General Nurse Practitioner 02/08/23 documented as of this encounter
--- OUTSIDE RECORDS SUMMARY | 2024-07-02 11:30 | External Medical Summary | Summary of Care ---
Author Name Unknown Organization [facility] Address [address] [place] [address] Phone [phone] Care Team Providers Care Manager People Name Role Phone Izaiah Tamara ERVIN Primary Care Provider Encounter Details Date Type Department Care Team (Late st Contact Info) Description 03/10/2024 Population Health External Data Unspecified Department Allergies Active Allergy Reactions Criticality Noted Date Comments Cocamidopropyl Betaine Rash 02/03/2021 Patch testing 02/03/21 Ortho Tri-Cyclen Nausea/vomiting 08/07/2007 Other Allergy (See Comments) 05/16/2021 Amidoamine, Propolis, DMAPA documented as of this encounter (statuses as of 03/10/2024) Medications No known medicationsdocumented as of this encounter (statuses as of 03/10/2024) Active Problems Problem Noted Date Diagnosed Date Body mass index (BMI) of 40.0 to 44.9 in adult 0 02/25/2023 Overview: Per Obesity protocol Iron deficiency anemia 03/27/2016 documented as of this encounter (statuses as of 03/10/2024) Resolved Problems Problem Noted Date Diagnosed Date Resolved Date Encounter for supervision of other normal 08/07/2007 09/27/2008 Overview (06/21/2015): ICD-10 update of inactive term documented as of this encounter (statuses as of 03/10/2024) Immunizations Name Administration Dates Next Due COVID-19 [...] EST Appointment Radiology, Dominick [address] [phone] 02/15/2025 8:20 AM EST Office Visit Family Practice, [address] [phone] Tamara Bliss CRNP [address] [address] 02/19/2025 8:20 AM EST Office Visit Dermatology, Dominick Benitez [address] [phone] Kathya Ham PA-C [address] [phone] Health Maintenance Due Date Last Done Comments [...] filedocumented as of this encounter Care Teams Manager People Relationship Specialty Start Date End Date Tamara Bliss CRNP [address] [phone] PCP - General Nurse Practitioner 02/08/23 documented as of this encounter
--- OUTSIDE RECORDS SUMMARY | 2024-07-02 11:30 | External Medical Summary | Summary of Care ---
Author Name Unknown Organization [facility] Address [address] [facility] [address] Phone [phone] Care Team Providers Care Flat Hammerer Name Role Phone Izaiah Tamara ERVIN Primary Care Provider Reason for Visit * Reason Comments Acute Pt is here for cold symptoms, going on for about a week, getting worse, has not tried any OTC medications. Started with sore throat, head congestions, ear pain , slight cough, sneezing. Encounter Details Date Type Department Care Team (Late st Contact Info) Description 01/17/2024 8:40 AM EST Office Visit [facility] [address] [facility] [address] [phone] Verónica Grimes PA-C [address] [facility] [place], [place] [phone] Acute cough*; Upper respiratory tract infection, unspecified type Allergies Active Allergy Reactions Criticality Noted Date Comments Cocamidopropyl Betaine Rash 02/03/2021 Patch testing 02/03/21 Ortho Tri-Cyclen Nausea/vomiting 08/07/2007 Other Allergy (See Comments) 05/16/2021 Amidoamine, Propolis, DMAPA documented as of this encounter (statuses as of 01/17/2024) Medications Meclizine HCl 12.5 MG Oral Tablet (Antivert)Indicat ions:Lightheadedn ess Take 2 Tablets by mouth 3 times a day as needed for Dizziness. 30 Tablet 1 024 Active Additional Information Patient not taking.Reported on 01/17/2024 Benzonatate 100 MG Oral Capsule (Tessalon Perles)Indication s:Acute cough Take 1 Capsule by mouth 3 times a day as needed for Cough. Do not cut, crush, or chew. 30 Capsule Active Ondansetron 4 MG Oral Tablet Disintegrating (Zofran)Indicatio ns:Bilious vomiting with nausea,Lightheade dness Place 1 Tablet on tongue every 8 hours as needed for Nausea or Vomiting for up to 10 days. dissolve on tongue. 20 Tablet 024 2023 Discontinued(M edication List Clean Up) Benzonatate 100 MG Oral Capsule (Tessalon Perles)Indication s:Acute cough Take 1 Capsule by mouth 3 times a day as needed for Cough. Do not cut, crush, or chew. 50 Capsule 1 024 2023 Discontinued documented as of this encounter (statuses as of 01/17/2024) Active Problems Problem Noted Date Diagnosed Date Body mass index (BMI) of 40.0 to 44.9 in adult 0 02/25/2023 Overview: Per Obesity protocol Iron deficiency anemia 03/27/2016 documented as of this encounter (statuses as of 01/17/2024) Resolved Problems Problem Noted Date Diagnosed Date Resolved Date Encounter for supervision of other normal 08/07/2007 09/27/2008 Overview (06/21/2015): ICD-10 update of inactive term documented as of this encounter (statuses as of 01/17/2024) Immunizations Name Administration Dates Next Due COVID-19 mRNA, LNP-s, No Pre serve, 2-Dose Series (eCullet) 05/05/2021,04/14/2021 HEPATITIS B VACCINE, RECOMB, 20 MCG/ML, ADULT (HEPLISAV-B) 03/15/2023,02/08/2023 Meningococcal Conjugate Vacc ine (Menactra/Menveo) 03/22/2008 Seasonal Influenza, PF, 6 M & above, IM , (FluLaval or Fluzone) 01/24/2022,01/02/2019,01/13/2018 TDAP (age 10 and older)(Boostrix) 10/23/2018 documented as of this encounter Social History Tobacco Use Types Packs/Day Years Used Date Smoking Tobacco: Former Smokeless Tobacco: Never Tobacco Cessation:Counseling Given: No Alcohol Use Standard Drinks/Week Comments No 0 (1 standard drink = 0.6 oz pur e alcohol) PHQ-2 Answer Date Recorded PHQ Adult Total Score 0 02/08/2023 Hunger Vital Sign Answer Date Recorded Within [...] Sign Reading Time Taken Comments Blood Pressure 130/92 01/17/2024 8:40 AM EST Pulse 82 01/17/2024 8:40 AM EST Temperature 36.8 °C (98.3 °F) 01/17/2024 8:40 AM ES T Respiratory Rate 16 01/17/2024 8:40 AM EST Oxygen Saturation 96% 01/17/2024 8:40 AM EST Inhaled Oxygen Concentration - - Weight 97.8 kg (215 lb 8 oz) 01/17/2024 8:40 AM EST Height 152.4 cm (5') 01/17/2024 8:40 AM EST Body Mass Index 42.09 01/17/2024 8:40 AM EST documented in this encounter Patient Instructions * Patient Instructions* Verónica Grimes PA-C - 01/17/2024 8:52 AM EST Symptoms are mostly self-limiting within 10-14 days and treated conservatively Nasal Congestion: -Saline nasal rinses, humidified air -Nasal decongestant spray limited to 2-3 days to prevent rebound congestion, -Oral decongestant such as pseudoephedrine- *not recommended for patients with uncontrolled hypertension or coronary artery disease* Sore throat: -lozenges, warm tea with honey, salt water gargle, ibuprofen Cough: -Benzonatate prescribed for cough suppression, -Mucinex (guaifenesin) is an expectorant which will thin mucus and allow it to be cleared more easily Fever: -may alternate Tylenol and Advil for fever control as well as headache/body aches Rest and drink plenty of fluids documented in this encounter Nursing Notes * Sayra Mast CCMA - 01/17/2024 8:40 AM EST Chief Complaint Patient presents with Acute Pt is here for cold symptoms, going on for about a week, getting worse, has not tried any OTC medications. Started with sore throat, head congestions, ear pain , slight cough, sneezing. documented in this encounter Plan of Treatment Upcoming Encounters Date Type Department Care Team (Late st Contact Info) Description 02/14/2024 8:20 AM EST Office Visit [facility] [place] [address] [phone] Tamara Bliss CRNP [address] [address] Health Maintenance Due Date Last Done Comments COVID-19 Vaccine ( season) 2023 05/05/2021, 04/14/2021 Influenza Vaccine (FLU shot) (#1) 2023 01/24/2022, 01/02/2019, 01/13/2018 Depression Screening 02/09/2024 02/08/2023 Mammogram 04/12/2024 04/12/2023, 11/18, 04/22/2020, Additional history exists Lipid Panel 04/22/2025 04/22/2020, 01/27/2016 Diabetes Screening 12/12/2026 12/13/2023, 0 11/16/2022, 04/22/2020, Additional history exists DTap/Tdap Vaccines (2 - Td or Tdap) 10/23/2028 10/23/2018 MENINGOCOCCAL (MENACTRA/MENVEO) Aged Out 03/22/2008 No longer eligible based on patient's age to complete this topic Hepatitis B Vaccine Completed 03/15/2023, HPV (Gardasil) Vaccine Aged Out No lo nger eligible based on patient's age to complete this topic Pneumococcal Vaccine: Pediatrics (0 to 5 Years) and At-Risk Patients (6 to 64 Years) Aged Out No longer eligible based on patient's age to complete this topic documented as of this encounter Medical Devices Not on filedocumented as of this encounter Visit Diagnoses Diagnosis Acute cough- Primary Upper respiratory tract infection, unspecified type documented in this encounter Care Teams Flat Hammerer Relationship Specialty Start Date End Date Tamara Bliss CRNP [address] [phone] PCP - General Nurse Practitioner 02/08/23 documented as of this encounter
--- OUTSIDE RECORDS SUMMARY | 2024-07-02 11:30 | External Medical Summary | Summary of Care ---
Author Name Unknown Organization [facility] Address [address] [place] [id number] Phone [phone] Care Team Providers Care Ornamental Plaster Sticker Name Role Phone Tamara Bliss Primary Care Provider Reason for Referral * Evaluate & Treat - Unlimited Visits (Within 10 days (routine)) - Pending Review Specialty Diagnoses / Procedures Referred By Rosana cheek Referred To Contact Dermatology Diagnoses Skin mole Tamara Bliss CRNP [address] [address] Phone: tel: fax: Referral ID Status Reason Start Date Expiration Date Visits Requested Visits Authorized [id number] Pending Review Specialty Services Required 03/02/2024 999 [...] Encounter Details Date Type Department Care Team ([facility] st Contact Info) Description 02/28/2024 Telephone Dominick Nolasco [address] [phone] Tamara Bliss CRNP [address] [phone] [...] mRNA, LNP-s, No Pre serve, 2-Dose Series ([employer]) 05/05/2021,04/14/2021 HEPATITIS B VACCINE, RECOMB, 20 MCG/ML, [...] encounter Miscellaneous Notes * Telephone Encounter - Kymberly Amaro OSA - 03/02/2024 9:50 AM EST Pt scheduled and put on wait list * Telephone Encounter - Freda Vidal OSA [...] EST Appointment Radiology, Dominick [address] [phone] 02/15/2025 8:20 AM EST Office Visit Family Practice, Dominick [address] [phone] Tamara Bliss CRNP [address] [address] 02/19/2025 8:20 AM EST Office Visit Dermatology, Dominick Benitez [address] [phone] Kathya Ham PA-C [address] [address] Scheduled Referrals Name Type Priority Associated Diagnoses [...] unspecified documented in this encounter Care Teams Ornamental Plaster Sticker Relationship Specialty Start Date End Date Tamara Bliss CRNP [address] [phone] PCP - General Nurse Practitioner 02/08/23 documented as of this encounter
[2024-07-02] MEDS: dexAMETHasone 6 MG in SYRINGE 0 ML IV SCH (15:07)
[2024-07-02] MEDS: VANCOMYCIN HCL 1,250 MG in SODIUM CHLORIDE 0.9% 250 ML IV SCH (15:50)
--- NOTE | 2024-07-02 18:29 | Infectious Disease Consult ---
<Statement entered by Felicia Wolff MD - 07/02/24 19:13> I was present during the entire telemedicine visit and I personally interacted with the patient .Dr Amaya and I formulated a treatment plan .Ideally she is no longer contagious when all her lesions have crusted over which usually takes about 7-10 days .Until then she should avoid close contact with high risk pers ons (e.g ,newborns and immunocompromised individuals until all lesions have crusted over as she reports the rash is to the anterior and posterior aspect of her thorax Date of Service July 02, 2024 Telehealth Information I performed this visit using a real-time telehealth connection between my location and the patients location ([facility]). After connecting through interactive tele-video, patient was identified by name and date of and/or wristband check.Patient (or authorized healthcare it sales representative) was informed that this was a telemedicine visit and it was being conducted confidentially over secure lines. My office door was closed and no one else was present in the room with me.Patient (or authorized healthcare it sales representative) provided consent to proceed with the visit, expressed an understanding of privacy and security of the telemedicine visit, and gave permi ssion to have a hospital it sales representative in the room in order to assist with the visit and to conduct portions of the visit, as needed. I informed the patient (or authorized healthcare it sales representative) that I reviewed their record and presented the opportunity for them to ask any questions regarding the visit today. The patient agreed to participate. Assessment & Plan (1) Meningitis due to herpes zoster virus: (2) Shingles: Plan -Discontinue vancomycin and ceftriaxone -Continue treating with IV acyclovir 10 mg/kg IV q.8h for total of 14 days of antibiotics for VZV meningitis (end date 07/16/2024) -Infectious Disease is signing off History of Present Illness History of Present Illness The patient is a 44-year-old female with a past medical history of fibroids and iron deficiency anemia, who presented with nausea, vomiting, and headache. She had a previous visit to the emergency department on June 27, 2024, and a primary care visit on June 29, 2024, for similar symptoms. During the current presentation, she was accompanied by her best friend, who is in healthcare, and gave permission for her to be part of the discussion. The patient reported a pounding headache located in the frontal region and behind the eyes, accompanied by a rash that developed a few days ago and persistent nausea and vomiting. She described the headache as unlike any she had experienced before, noting she has no history of migraines. Her symptoms have r endered her unable to eat or drink. Additionally, she complained of neck pain that was slightly worse than usual. She denied any recent travel and reported being with only two historical sexual partners, with no symptoms of sexually transmitted diseases. She has no family history of autoimmune conditions, but mentioned extensive exposure to toxic chemicals, including fiberglass and dental chemicals. On examination, the patient appeared unwell. Given the constellation of symptoms, the differential diagnosis included viral or bacterial meningitis, other viral exanthems such as herpes, autoimmune conditions like systemic lupus erythematosus, with less likelihood given to , peptic ulcer disease, or gastroenteritis. A lumbar puncture was performed with interventional radiology support, and cerebrospinal fluid (CSF) labs, including viral and bacterial serology tests, were ordered. Empirical treatment post-lumbar puncture included dexamethasone, ceftriaxone, ampicillin, vancomycin, and acyclovir, given the zoster-like rash despite no history of immunocompromise. Additional tests ordered included an autoimmune panel, vasculitis markers, ESR, CRP, drug panel, TSH, troponin, and lactic acid. The rash was noted, and pending lumbar puncture results and other lab findings, a dermatology consult was considered. The patient is afebrile, though lab results showed leukocytosis of 13.31, ESR of 47, and CRP of 3.98. The lumbar puncture performed on July 01 revealed CSF positive for VZV DNA PCR, with CSF protein at 37 and a CSF white blood cell count of 205, predominantly mononuclear cells (96%). Patient stated that since the treatment has been she is feeling much better and her shingles lesions have started to get better as well. Allergies Allergy/AdvReac Type Severity Reaction Status Date / Time nickel Allergy Unknown Unknown - Unverified 07/01/24 14:32 Pt states allergic to a metal. Not sure which one. ethinyl estradiol AdvReac Intermediate NAUSEA AND Verified 07/01/24 14:32 VOMITING norgestimate AdvReac Intermediate NAUSEA AND Verified 07/01/24 14:32 VOMITING latex AdvReac Mild SKIN Verified 07/01/24 14:32 IRRITATION Home Medications Medication Instructions Recorded Confirmed Type ondansetron 4 mg disintegrating 4 mg translingual Q8H PRN Nausea 07/01/24 07/01/24 History tablet And Vomiting Patient History Social History Smoking Status: Former smoker Second Hand Exposure: No; Do You Dip or Chew Tobacco: No; Tobacco Cessation Education Requested by Patient: No Hx Alcohol Use: Yes Hx Substance Use: No Preferred Language: Faroese Communication Ability: Effective Director Of Scientific Research Required: No Beliefs That Will Affect Care: None Current Living Situation: Spouse Other Information That Helps Us Care for You: No Feels Safe at Home: Yes Safety Concerns: Feels Safe At This Time Assistive Devices: None Review of Systems Constitutional: No Weight Change, Fever positive, headache positive, neck pain and stiffness positive, No Night Sweats, No Fatigue, No Malaise ENT/Mouth: No Hearing Changes, No Ear Pain, No Nasal Congestion, No Sinus Pain, No Hoarseness, No sore throat, No Rhinorrhea, No Swallowing Difficulty Eyes: No Eye Pain, No Swelling, No Redness, No Foreign Body, No Discharge, No Vision Changes Cardiovascular: No Chest Pain, No SOB, No PND, No Dyspnea on Exertion, No Orthopnea, No Claudication, No Edema, No Palpitations Respiratory: No Cough, No Sputum, No Wheezing, No Smoke Exposure, No Dyspnea Gastrointestinal: No Nausea, No Vomiting, No Diarrhea, No Constipation, No Pain, No Heartburn, No Anorexia, No Dysphagia, No Hematochezia, No Melena, No Flatulence, No Jaundice Genitourinary: No Dysmenorrhea, No DUB, No Dyspareunia, No Dysuria, No Urinary Frequency, No Hematuria, No Urinary Incontinence, No Urgency, No Flank Pain, No Urinary Flow Changes, No Hesitancy Musculoskeletal: No Arthralgias, No Myalgias, No Joint Swelling, No Joint Stiffness, No Back Pain, No Injury History Skin: No Skin Lesions, No Pruritis, No Hair Changes, No Breast/Skin Changes, No Nipple Discharge Neuro: No Weakness, No Numbness, No Paresthesias, No Loss of Consciousness, No Syncope, No Dizziness, No Headache, No Coordination Changes, No Recent Falls Psych: No Anxiety/Panic, No Depression, No Insomnia, No Personality Changes, No Delusions, No Rumination, No SI/HI/AH/VH, No Social Issues, No Memory Changes, No Violence/Abuse Hx., No Eating Concerns Heme/Lymph: No Bruising, No Bleeding, No Transfusions History, No Lymphadenopathy Endocrine: No Polyuria, No Polydipsia, No Temperature Intolerance Physical Exam could not be performed as it was a video visit Results & Data Vital Signs (Past 12 Hours) Vital Signs Temp Pulse Resp BP BP Pulse Ox O2 Del Method 07/02/24 15:56 36.8 C 69 17 155/106 H 142/82 H 97 Room Air 07/02/24 07:57 36.6 C 53 L 17 131/85 95 Room Air Laboratory Results 07/01/24 Unknown Gram Stain - Final Cerebral Spinal Fluid CSF Culture - Preliminary No growth to date. 07/02/24 10:40 Urine Culture - Pending Urine,Clean Catch 07/02/24 09:00 Aerobic Blood Culture - Pending Blood Anaerobic Blood Culture - Pending 07/02/24 09:22 Aerobic Blood Culture - Pending Blood Anaerobic Blood Culture - Pending 07/01/24 Unknown Fungal Culture - Pending Cerebral Spinal Fluid 07/01/24 Unknown Acid Fast Bacilli Smear - Pending Cerebral Spinal Fluid Acid Fast Bacilli Culture - Pending 07/02/24 07/02/24 11:57 09:22 WBC 13.31 H RBC 4.57 Hgb 14.1 Hct 39.6 MCV 86.7 MCH 30.9 MCHC 35.6 RDW Std Deviation 39.3 RDW Coeff of Mesfin 12.6 Plt Count 300 MPV 9.4 Immature Gran % (Auto) 0.5 Neut % (Auto) 78.9 Lymph % (Auto) 16.1 [place] % (Auto) 4.1 Eos % (Auto) 0.1 Baso % (Auto) 0.3 Neut # (Auto) 10.51 H Lymph # (Auto) 2.14 [place] # (Auto) 0.54 Eos # (Auto) 0.01 Baso # (Auto) 0.04 Immature Gran # (Auto) 0.07 Sodium 140 Potassium 3.1 L Chloride 106 Carbon Dioxide 26 Anion Gap 8 BUN 7 Creatinine 0.51 L Est Cr Clr Drug Dosing 145.3 eGFR 117.97 BUN/Creatinine Ratio 13.7 Glucose 146 H Calcium 9.2 Magnesium 1.7 Random Vancomycin 10.8 Medications Administered Home Medications Medication Instructions Recorded Confirmed Last Taken ondansetron 4 mg disintegrating 4 mg translingual Q8H PRN Nausea 07/01/24 07/01/24 07/01/24 tablet And Vomiting Active Medications Generic Name Dose Route Start Last Admin Trade Name Freq PRN Reason Stop Dose Admin Enoxaparin Sodium 40 mg 07/01/24 19:15 07/02/24 06:04 Enoxaparin Inj 40 Mg/0.4 Ml Syr SQ 07/31/24 19:14 40 mg Q12H SHARMAINE Administration Acyclovir Sodium 700 mg/ 114 mls @ 250 mls/hr 07/01/24 23:30 07/02/24 16:55 Dextrose IV 07/11/24 23:29 Infused Q8H SHARMAINE Infusion Protocol Ceftriaxone Sodium 2,000 mg in 50 mls @ 100 mls/hr 07/02/24 03:30 07/02/24 15:43 Rocephin IV 07/12/24 03:29 Infused Q12H SHARMAINE Infusion Vancomycin HCl 1,250 mg/ 275 mls @ 200 mls/hr 07/02/24 15:00 07/02/24 17:21 Sodium Chloride IV 07/12/24 14:59 Infused Q8H SHARMAINE Infusion Lactobacillus Acidophilus 1,250 mg 07/02/24 10:15 07/02/24 11:12 Advanced Probiotic 625 Mg Capsule PO 08/01/24 10:14 1,250 mg DAILY SHARMAINE Administration Pantoprazole Sodium 40 mg 07/02/24 09:00 07/02/24 08:43 Pantoprazole 40 Mg Tab PO 08/01/24 08:59 40 mg QAM SHARMAINE Administration (2) Shingles Herpes zoster complications: without complications Qualified Code(s): B02.9 - Zoster without complications
--- NOTE | 2024-07-03 07:56 | Hospitalist Progress Note ---
Date of Service July 03, 2024 Assessment & Plan (1) Meningitis due to herpes zoster virus: (2) Shingles: (3) Hypokalemia: (4) Hypomagnesemia: (5) Nausea & vomiting: (6) Left ovarian cyst: (7) Morbid obesity: Plan 44 year old female with PMH of MARGARETH and fibroids s/p hysterectomy who presented to the ED on 07/01 for headache and N/V and is admitted for viral meningitis. Meningitis due to herpes zoster virus Patient underwent LP on 07/01 which revealed pleocytosis, elevated protein, and varicella zoster consistent with viral meningitis Leukocytosis downtrending Discontinued ampicillin, decadron, vancomycin, ceftriaxone Infectious disease evaluated: recommending 14 days of IV acyclovir q8hr (end date 07/16/2024) Pending studies: -CSF culture prelim NGTD -CSF smear and fungal culture -Autoimmune labs -EBV and [place] -Blood cultures 07/02 prelim NGTD Shingles rash Improving per patient Continue IV acyclovir Possible UTI Bacteria present on UA and patient endorses urinary frequency x5 days Urine culture prelim <1,000 colonies No need for abx at this time Hypokalemia PO repletion Added potassium supplements 07/03 Hypomagnesemia IV repletion Added mag supplements 07/03 Nausea and vomiting Resolved Zofran PRN Left ovarian cyst Present since Feb 2022 per records Encouraged patient to follow up with PCP/OBGYN Morbid obesity BMI 41 [employer] lifestyle changes DVT Prophylaxis: SQ lovenox Code Status: FULL CODE PCP: Tamara Bliss Disposition: likely Saturday with [facility] Patient seen in collaboration with Dr Rodriguez. Please see addendum. I spent a total of 60 minutes coordinating, documenting and providing care for this patient excluding time spent in the performance of separately billed services or time spent by another provider/QHP. Admission and Anticipated Discharge Date Admission Date: July 01, 2024 Supervising Physician Co-Signing Physician Notes Patient is seen and examined at bedside. States feeling much better today Rash improving Headache resolved Offers no other complaints Physical Exam: Vitals signs as noted above General Appearance:Obese, no apparent distress Head: normocephalic, Atraumatic Eyes: normal inspection, EOMI Neck: supple, Trachea midline Respiratory/Chest: Normal breath sounds, CTA, No accessory muscle use Cardiovascular: S1, S2, No murmur Abdomen/GI:Soft, Non tender, Bowel sounds present Extremities/Musculoskeletal:normal inspection, no edema Neurologic/Psych:AAOX3, grossly no focal neurological deficits Skin: normal color, warm, + erythematous rash on left side chest Varicella zoster meningitis/encephalitis Suspected UTI--ruled out Agree with continuing IV acyclovir Follow-up CSF, blood cultures--negative to date IV antibiotics discontinued Appreciate ID input Replace electrolytes as needed Plan to be discharged on Saturday once IV acyclovir arranged Plan for ultrasound-guided IV line placement tomorrow I personally interviewed and examined the patient at bedside. I have reviewed the advanced practitioner's documentation on the date of service referred in note and agree with plan. Patient's care is coordinated with Jazlyn ERVIN. Please refer to the documentation above for details of patient's presentation and for discussion of other issues. I spent a total [id number] coordinating, documenting, and providing care for this patient excluding time spent in the performance of separately billed services or time spent by another provider/QHP. Subjective Patient seen sitting up in bed Reports slight neck pain that is tolerable Denies headaches, blurry vision, diplopia, chest pain, SOB, abdominal pain, N/V/D, back pain, weakness Eating and drinking well Review of Systems Review of Systems: All systems reviewed & are unremarkable except as noted in Subjective Physical Exam Physical Exam: Gen/Psych: WD/WN, sitting up in bed, NAD, A&Ox3 HEENT: Normocephalic, atraumatic, conjunctivae pink, sclerae anicteric, mucous membranes moist Lung: Clear to auscultation bilaterally, no wheezes/rales/rhonchi Heart: Regular rate and rhythm, no murmurs/rubs/gallops Extremities: Normal peripheral pulses, no edema Abdomen: Soft, NT, ND, +BS x 4 Skin: Warm and dry, no rash, shingles rash to left chest with scabs starting Results & Data Results & Data Vital Signs (Past 12 Hours) Vital Signs Temp Pulse Resp BP Pulse Ox O2 Del Method 07/03/24 07:15 36.7 C 68 16 128/85 96 Room Air Laboratory Results Short CBC 07/03/24 Range/Units 07:22 WBC 12.90 H (4.8-10.8) K/ul Hgb 13.1 (12.0-16.0) g/dl Hct 37.5 (37.0-47.0) % Plt Count 284 (130-400) K/uL BMP 07/03/24 07:22 Sodium 141 Potassium 3.2 L Chloride 106 Carbon Dioxide 27 BUN 10 Creatinine 0.57 L Glucose 164 H Calcium 8.9 I have independently reviewed and interpreted patient's admitting labs including CBC, BMP, CRP, ESR. Medications Administered Current Inpatient Medications Acetaminophen (Acetaminophen 325 Mg Tab) 650 mg PO Q4H PRN PRN Reason: pain/fever Stop: 07/31/24 18:58 Cefdinir (Cefdinir 300 Mg Cap) 300 mg PO BID [facility]; Protocol Stop: 07/09/24 08:59 Enoxaparin Sodium (Enoxaparin Inj 40 Mg/0.4 Ml Syr) 40 mg SQ Q12H [facility] Stop: 07/31/24 19:14 Last Admin: 07/03/24 06:12 Dose: 40 mg Acyclovir Sodium 700 mg/ (Dextrose) 114 mls @ 250 mls/hr IV Q8H [facility]; Protocol Stop: 07/11/24 23:29 Last Infusion: 07/03/24 09:16 Dose: Infused Magnesium Sulfate/Dextrose (Magnesium Sulfate / D5w) 1 gm in 100 mls @ 50 mls/hr IV Q2H [facility] Stop: 07/03/24 12:59 Last Admin: 07/03/24 12:25 Dose: 50 mls/hr Lactobacillus Acidophilus (Advanced Probiotic 625 Mg Capsule) 1,250 mg PO DAILY [facility] Stop: 08/01/24 10:14 Last Admin: 07/03/24 08:47 Dose: 1,250 mg Magnesium Chloride (Magnesium Chloride W/Calcium 64mg Delayed Rel Tab) 64 mg PO BID [facility] Stop: 08/02/24 20:59 Ondansetron HCl (Ondansetron Inj 2 Mg/Ml 2 Ml Vial) 4 mg IV Q6H PRN PRN Reason: Nausea Stop: 07/31/24 18:58 Pantoprazole Sodium (Pantoprazole 40 Mg Tab) 40 mg PO QAM [facility] Stop: 08/01/24 08:59 Last Admin: 07/03/24 08:48 Dose: 40 mg Polyethylene Glycol (Polyethylene (Miralax) 17 Gm Pack) 17 gm PO DAILY PRN PRN Reason: Constipation Stop: 07/31/24 18:58 Potassium Chloride (Potassium Chloride 10 Meq Tabcr) 20 meq PO DAILY [facility] Stop: 08/03/24 08:59 (2) Shingles Herpes zoster complications: without complications Qualified Code(s): B02.9 - Zoster without complications
[2024-07-03 08:06] LABS: Basophils # (auto) 0.04 K/uL (0.00-0.20); Basophils % (auto) 0.3 %; Eosinophils # (auto) 0.04 K/uL (0.00-0.50); Eosinophils % (auto) 0.3 %; Hematocrit (blood only) 37.5 % (37.0-47.0); Hemoglobin 13.1 g/dl (12.0-16.0); Immature Granulocytes # (auto) 0.08 K/uL (0.01-0.20); Immature Granulocytes % (auto) 0.6 %; Lymphocytes # (auto) 2.89 K/uL (1.20-3.40); Lymphocytes % (auto) 22.4 %; Mean Corpuscular Hemoglobin 30.9 pg (25.0-34.0); Mean Corpuscular Hgb Conc 34.9 g/dL (32.0-36.0); Mean Corpuscular Volume 88.4 fL (80.0-100.0); Mean Platelet Volume 9.6 fL (9.4-12.4); Monocytes # (auto) 0.72 K/uL (0.11-0.59); Monocytes % (auto) 5.6 %; Neutrophils # (auto) 9.13 K/uL (1.40-6.50); Neutrophils % (auto) 70.8 %; Platelet Count 284 K/uL (130-400); RDW Coefficient of Variation 12.9 % (11.5-14.5); RDW Standard Deviation 41.4 fL (36.4-46.3); Red Blood Count 4.24 M/uL (4.20-5.40)
[2024-07-03 08:26] LABS: BUN Creatinine Ratio 17.5 (10-20); C Reactive Protein 1.86 mg/dl (0-0.5); Calcium 8.9 mg/dl (8.6-10.3); Magnesium 1.5 mg/dl (1.7-2.4); Potassium 3.2 mmol/L (3.5-5.1)
[2024-07-03] MEDS: POTASSIUM CHLORIDE CRTAB 20 MEQ TABCR PO STA (09:56)
[2024-07-03] MEDS: MAGNESIUM SULFATE / D5W 1 GM/100 ML BAG IV SCH (09:56)
[2024-07-03] MEDS: MAGNESIUM CHLORIDE W/CALCIUM 64MG DELAYED REL TAB PO SCH (21:17)
[2024-07-04] MEDS: ACETAMINOPHEN 325 MG TAB PO PRN (02:50)
[2024-07-04 06:42] LABS: Hematocrit (blood only) 40.7 % (37.0-47.0); Hemoglobin 14.2 g/dl (12.0-16.0); Mean Corpuscular Hemoglobin 30.7 pg (25.0-34.0); Mean Corpuscular Hgb Conc 34.9 g/dL (32.0-36.0); Mean Corpuscular Volume 87.9 fL (80.0-100.0); Mean Platelet Volume 9.4 fL (9.4-12.4); Platelet Count 268 K/uL (130-400); RDW Coefficient of Variation 13.3 % (11.5-14.5); RDW Standard Deviation 42.5 fL (36.4-46.3); Red Blood Count 4.63 M/uL (4.20-5.40); White Blood Count 11.58 K/ul (4.8-10.8)
[2024-07-04 06:57] LABS: BUN Creatinine Ratio 16.4 (10-20); Creatinine Clr Calc Pharmacy 134.8 ml/min; Potassium 3.6 mmol/L (3.5-5.1)
[2024-07-04] MEDS ORDERED: CEFDINIR 300 MG CAP PO SCH (09:00)
[2024-07-04] MEDS: POTASSIUM CHLORIDE 10 MEQ TABCR PO SCH (09:03)
[2024-07-04] MEDS: OPTIRAY 320 100ml IV ONE (12:51)
--- NOTE | 2024-07-04 13:25 | CT Scan Report ---
CT soft tissue neck w con HISTORY: 44 years-old Female Neck pain acute neck pain COMPARISON: Head CT 07/01/2024, ultrasound 03/02/2022 TECHNIQUE: Multiple axial CT images of the soft tissues of the neck were obtained with IV contrast. A dose lowering technique was used consistent with the principals of ALARA. FINDINGS: Clear lung apices. Unremarkable vascular structures of the neck. The imaged intracranial structures a re unremarkable. Cervical chain lymph nodes measure up to 8-9 mm which are nonspecific, favored to be benign. The airway appears patent. The paravertebral fat planes are symmetric and well-preserved. No peritonsillar abscess or suspicious soft tissue mass. The parotid and submandibular glands appear no rmal. No thyroid lesion identified. Normal glottis. Multilevel degenerative changes of the cervical spine. Paranasal sinuses and the mastoid air cells ap pear clear. IMPRESSION: 1. No acute inflammatory process. 2. Borderline enlarged cervical chain lymph nodes, likely benign. ACT 112: Negative or not required by law. The above report was generated using voice recognition software. It may contain grammatical, syntax o r spelling errors. Electronically signed by: Ruben Márquez M.D. 07/04/2024 1:23 PM
--- NOTE | 2024-07-04 15:25 | Hospitalist Progress Note ---
Date of Service July 04, 2024 Assessment & Plan (1) Meningitis due to herpes zoster virus: (2) Shingles: (3) Hypokalemia: (4) Hypomagnesemia: (5) Nausea & vomiting: (6) Left ovarian cyst: (7) Morbid obesity: Plan 44 year old female with PMH of MARGARETH and fibroids s/p hysterectomy who presented to the ED on 07/01 for headache and N/V and is admitted for viral meningitis. Varicella zoster meningitis/encephalitis Patient underwent LP on 07/01 which revealed pleocytosis, elevated protein, and varicella zoster consistent with viral meningitis Discontinued IV ampicillin, decadron, vancomycin, ceftriaxone Infectious disease evaluated: recommending 14 days of IV acyclovir q8hr (end date 07/16/2024) -Blood cultures negative to date -CSF cultures preliminary negative -Autoimmune workup, EBV, [place] pending Continue IV acyclovir per ID recommendations Plan for midline placement today Shingles rash Improving Continue IV acyclovir as above Cervical lymphadenopathy --CT Neck:No acute inflammatory process. Borderline enlarged cervical chain lymph nodes, likely benign. Unclear etiology Empirically started on Augmentin May need repeat imaging to ensure resolution as outpatient Suspected UTI-ruled out Urine culture negative Rocephin discontinued Hypokalemia Hypomagnesemia Replace and monitor Nausea and vomiting Resolved Zofran PRN Left ovarian cyst Present since Feb 2022 per records Encouraged patient to follow up with PCP/OBGYN Morbid obesity BMI 41 [employer] lifestyle changes DVT Px: SQ lovenox Code Status: FULL CODE Disposition: Likely discharge home tomorrow Admission and Anticipated Discharge Date Admission Date: July 01, 2024 Subjective Patient is seen and examined at bedside Continues to have neck discomfort, feels lymph node slightly enlarged No other new complaints today Denies any chest pain, dyspnea, nausea, vomiting, abdominal pain, sore throat, cough, headache, neck stiffness Review of Systems Review of Systems: All systems reviewed & are unremarkable except as noted in Subjective Physical Exam Physical Exam: Physical Exam: Vitals signs as noted above General Appearance:Obese, no apparent distress Head: normocephalic, Atraumatic Eyes: normal inspection, EOMI Neck: supple, Trachea midline Respiratory/Chest: Normal breath sounds, CTA, No accessory muscle use Cardiovascular: S1, S2, No murmur Abdomen/GI:Soft, Non tender, Bowel sounds present Extremities/Musculoskeletal:normal inspection, no edema Neurologic/Psych:AAOX3, grossly no focal neurological deficits Skin: normal color, warm, + erythematous rash on left side chest improving Results & Data Results & Data Vital Signs (Past 12 Hours) Vital Signs Temp Pulse Resp BP BP Pulse Ox O2 Del Method 07/04/24 08:57 129/85 07/04/24 08:05 36.8 C 64 18 145/101 H 93 Room Air Laboratory Results Short CBC 07/04/24 Range/Units 06:16 WBC 11.58 H (4.8-10.8) K/ul Hgb 14.2 (12.0-16.0) g/dl Hct 40.7 (37.0-47.0) % Plt Count 268 (130-400) K/uL BMP 07/04/24 06:16 Sodium 138 Potassium 3.6 Chloride 103 Carbon Dioxide 25 BUN 9 Creatinine 0.55 L Glucose 97 Calcium 9.0 (2) Shingles Herpes zoster complications: without complications Qualified Code(s): B02.9 - Zoster without complications
[2024-07-04] MEDS: AMOXICILLIN/CLAVULANATE 875 MG TAB PO SCH (16:25)
[2024-07-05] MEDS: ONDANSETRON INJ 2 MG/ML 2 ML VIAL IV PRN (00:55)
[2024-07-05 06:48] LABS: West Nile Virus, PCR Source CSF; West Nile Virus, PCR, CSF NOT DETECTED (NOT DETECTED)
[2024-07-05 08:04] LABS: Hemoglobin 15.7 g/dl (12.0-16.0); Mean Corpuscular Hemoglobin 30.5 pg (25.0-34.0); Mean Corpuscular Hgb Conc 34.1 g/dL (32.0-36.0); Mean Corpuscular Volume 89.5 fL (80.0-100.0); Mean Platelet Volume 9.2 fL (9.4-12.4); Platelet Count 310 K/uL (130-400); RDW Coefficient of Variation 13.4 % (11.5-14.5); RDW Standard Deviation 43.1 fL (36.4-46.3); Red Blood Count 5.14 M/uL (4.20-5.40); White Blood Count 11.63 K/ul (4.8-10.8)
[2024-07-05 08:45] LABS: BUN Creatinine Ratio 15.4 (10-20); Calcium 9.6 mg/dl (8.6-10.3); Magnesium 2.1 mg/dl (1.7-2.4); Potassium 4.6 mmol/L (3.5-5.1)
[2024-07-05 08:48] VITALS: RESP 18; TEMP 98.8; O2SAT 94
[2024-07-05] MEDS: POTASSIUM CHLORIDE 10 MEQ TABCR PO SCH (09:25)
--- NOTE | 2024-07-05 11:31 | Hospitalist Progress Note ---
Date of Service July 05, 2024 Assessment & Plan (1) Meningitis due to herpes zoster virus: (2) Shingles: (3) Hypokalemia: (4) Hypomagnesemia: (5) Nausea & vomiting: (6) Left ovarian cyst: (7) Morbid obesity: Plan 44 year old female with PMH of MARGARETH and fibroids s/p hysterectomy who presented to the ED on 07/01 for headache and N/V and is admitted for viral meningitis. Varicella zoster meningitis/encephalitis Patient underwent LP on 07/01 which revealed pleocytosis, elevated protein, and varicella zoster consistent with viral meningitis Discontinued IV ampicillin, decadron, vancomycin, ceftriaxone Infectious disease evaluated: recommending 14 days of IV acyclovir q8hr (end date 07/16/2024) -Blood cultures negative to date -CSF cultures preliminary negative -Autoimmune workup, EBV, [place] pending Continue IV acyclovir per ID recommendations Plan to be discharged home today Shingles rash Improving Continue IV acyclovir as above Cervical lymphadenopathy --CT Neck:No acute inflammatory process. Borderline enlarged cervical chain lymph nodes, likely benign. Unclear etiology Empirically started on Augmentin Advised to get repeat CT in 4 to 6 weeks as outpatient to ensure resolution Suspected UTI-ruled out Urine culture negative Rocephin discontinued Hypokalemia Hypomagnesemia Replace and monitor Nausea and vomiting Resolved Zofran PRN Left ovarian cyst Present since Feb 2022 per records Encouraged patient to follow up with PCP/OBGYN Morbid obesity BMI 41 [employer] lifestyle changes DVT Px: SQ Lovenox Code Status: FULL CODE Disposition: Home Admission and Anticipated Discharge Date Admission Date: July 01, 2024 Subjective Patient is seen and examined at bedside States feeling a lot better today Neck discomfort much improved Was nauseous transiently overnight No other complaints today Denies any chest pain, dyspnea, nausea, vomiting, abdominal pain, sore throat, cough, headache, neck stiffness Plan to be discharged home today Review of Systems Review of Systems: All systems reviewed & are unremarkable except as noted in Subjective Physical Exam Physical Exam: Physical Exam: Vitals signs as noted above General Appearance:Obese, no apparent distress Head: normocephalic, Atraumatic Eyes: normal inspection, EOMI Neck: supple, Trachea midline Respiratory/Chest: Normal breath sounds, CTA, No accessory muscle use Cardiovascular: S1, S2, No murmur Abdomen/GI:Soft, Non tender, Bowel sounds present Extremities/Musculoskeletal:normal inspection, no edema Neurologic/Psych:AAOX3, grossly no focal neurological deficits Skin: normal color, warm, + erythematous rash on left side chest improving Results & Data Results & Data Vital Signs (Past 12 Hours) Vital Signs Temp Pulse Resp BP Pulse Ox O2 Del Method 07/05/24 08:46 37.1 C 98 H 18 135/86 94 Room Air Laboratory Results Short CBC 07/05/24 Range/Units 07:46 WBC 11.63 H (4.8-10.8) K/ul Hgb 15.7 (12.0-16.0) g/dl Hct 46.0 (37.0-47.0) % Plt Count 310 (130-400) K/uL BMP 07/05/24 07:46 Sodium 135 L Potassium 4.6 D Chloride 100 Carbon Dioxide 28 BUN 10 Creatinine 0.65 Glucose 105 H Calcium 9.6 (2) Shingles Herpes zoster complications: without complications Qualified Code(s): B02.9 - Zoster without complications
--- NOTE | 2024-07-05 11:46 | Discharge Summary ---
Date of Service July 05, 2024 Admission HPI Per Admitting Provider 44 yo female with pmhx of fibroids, MARGARETH who presented for nausea, vomiting, headache. Has one visit to ED on 06/27/2024 for similar symptoms, PCP visit on 06/29/2024 with similar symptoms. Patient seen and examined at bedside. Best friend also present who is in healthcare, patient gives permission to talk to her as well. Patient not doing well today. States she has a pounding, frontal/behind eye headache, a rash that has been here the past few days, and refractory nausea/vomiting. Patient has no history of migraines, never had headache like this before. Unable to eat or drink food at this time, she is actively nauseus. None of these symptoms have ever occured before. Does have some neck pain slightly worse than normal. 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 Full code at this time. Admission Exam Per Admitting Provider Gen: A&O 3 NAD HEENT: NCAT, EOMI, not icteric. External ears normal. No rhinorrhea. Moist mucous membranes. Neck: slight tenderness with movement Lungs: No Respiratory distress. CV: RRR, no edema. Abdomen: Soft, nondistended, No rebound tenderness. MSK: No joint swelling, no redness. Skin: pustular rash noted on left breast, left armpit, upper left back, right back, noncontiguous Neuro: Normal Gait, Grossly intact. Sensitivity to light noted Psych: Appropriate for situation. 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 Not sure which one. ethinyl estradiol AdvReac Intermediate NAUSEA AND Verified 07/01/24 14:32 VOMITING norgestimate AdvReac Intermediate NAUSEA AND Verified 07/01/24 14:32 VOMITING latex AdvReac Mild SKIN Verified 07/01/24 14:32 IRRITATION Consultations 07/01/24 13:50 ED Decision to Admit Stat 07/01/24 19:03 Consult Infectious Diseases Routine Procedures Performed Laboratory Results WBC 11.63 K/ul (4.8-10.8) H 07/05/24 07:46 RBC 5.14 M/uL (4.20-5.40) 07/05/24 07:46 Hgb 15.7 g/dl (12.0-16.0) 07/05/24 07:46 Hct 46.0 % (37.0-47.0) 07/05/24 07:46 MCV 89.5 fL (80.0-100.0) 07/05/24 07:46 MCH 30.5 pg (25.0-34.0) 07/05/24 07:46 MCHC 34.1 g/dL (32.0-36.0) 07/05/24 07:46 RDW Std Deviation 43.1 fL (36.4-46.3) 07/05/24 07:46 RDW Coeff of Mesfin 13.4 % (11.5-14.5) 07/05/24 07:46 Plt Count 310 K/uL (130-400) 07/05/24 07:46 MPV 9.2 fL (9.4-12.4) L 07/05/24 07:46 Immature Gran % (Auto) 0.6 % 07/03/24 07:22 Neut % (Auto) 70.8 % 07/03/24 07:22 Lymph % (Auto) 22.4 % 07/03/24 07:22 [place] % (Auto) 5.6 % 07/03/24 07:22 Eos % (Auto) 0.3 % 07/03/24 07:22 Baso % (Auto) 0.3 % 07/03/24 07:22 Neut # (Auto) 9.13 K/uL (1.40-6.50) H 07/03/24 07:22 Lymph # (Auto) 2.89 K/uL (1.20-3.40) 07/03/24 07:22 [place] # (Auto) 0.72 K/uL (0.11-0.59) H 07/03/24 07:22 Eos # (Auto) 0.04 K/uL (0.00-0.50) 07/03/24 07:22 Baso # (Auto) 0.04 K/uL (0.00-0.20) 07/03/24 07:22 Immature Gran # (Auto) 0.08 K/uL (0.01-0.20) 07/03/24 07:22 ESR 20 mm/hr (0-20) 07/03/24 07:22 Sodium 135 mmol/L (136-145) L 07/05/24 07:46 Potassium 4.6 mmol/L (3.5-5.1) D 07/05/24 07:46 Chloride 100 mmol/L (98-107) 07/05/24 07:46 Carbon Dioxide 28 mmol/L (21-32) 07/05/24 07:46 Anion Gap 7 (3-11) 07/05/24 07:46 BUN 10 mg/dl (6-23) 07/05/24 07:46 Creatinine 0.65 mg/dl (0.6-1.2) 07/05/24 07:46 Est Cr Clr Drug Dosing 114.0 ml/min 07/05/24 07:46 eGFR 111.27 07/05/24 07:46 BUN/Creatinine Ratio 15.4 (10-20) 07/05/24 07:46 Glucose 105 mg/dl (70-99(Fasting)) H 07/05/24 07:46 Lactate 1.0 mmol/L (0.4-2.0) 07/01/24 15:30 Calcium 9.6 mg/dl (8.6-10.3) 07/05/24 07:46 Magnesium 2.1 mg/dl (1.7-2.4) 07/05/24 07:46 Total Bilirubin 0.6 mg/dl (0.2-1.0) 07/01/24 11:13 AST 19 U/L (13-39) 07/01/24 12:10 ALT 15 U/L (7-52) 07/01/24 11:13 Alkaline Phosphatase 86 U/L (34-104) 07/01/24 11:13 Troponin I High Sens 6.5 pg/ml (0-14) 07/01/24 11:13 C-Reactive Protein 1.86 mg/dl (0-0.5) H 07/03/24 07:22 Total Protein 8.2 gm/dl (6.0-8.3) 07/01/24 11:13 Albumin 4.3 gm/dl (3.4-5.0) 07/01/24 11:13 Globulin 3.9 gm/dl (2.5-4.0) 07/01/24 11:13 Albumin/Globulin Ratio 1.1 (0.9-2) 07/01/24 11:13 Lipase 11 U/L (11-82) 07/01/24 11:13 TSH 1.518 uIu/ml (0.300-4.500) 07/01/24 11:13 HCG, Qual Negative (Negative) 07/01/24 12:17 Urine Color Yellow 07/01/24 11:20 Urine Appearance Clear (Clear) 07/01/24 11:20 Urine pH 6.0 (4.5-7.5) 07/01/24 11:20 Ur Specific [place] 1.021 (1.000-1.030) 07/01/24 11:20 Urine Protein 1+ (Negative) H 07/01/24 11:20 Urine Glucose (UA) Negative (Negative) 07/01/24 11:20 Urine Ketones 4+ (Negative) H 07/01/24 11:20 Urine Blood 1+ (Negative) H 07/01/24 11:20 Urine Nitrite Negative (Negative) 07/01/24 11:20 Urine Bilirubin Negative (Negative) 07/01/24 11:20 Urine Urobilinogen Positive (Negative) H 07/01/24 11:20 Ur Leukocyte Esterase Negative (Negative) 07/01/24 11:20 Urine WBC (Auto) 0-5 /hpf (0-5) 07/01/24 11:20 Urine RBC (Auto) 6-10 /hpf (0-2) H 07/01/24 11:20 U Hyaline Cast (Auto) 0-2 /lpf (0-2) 07/01/24 11:20 U Epithel Cells (Auto) 6-10 /hpf (0-2) H 07/01/24 11:20 Urine Bacteria (Auto) 2+ (None Seen) H 07/01/24 11:20 POC Ur Test NEG (NEG) 07/01/24 10:53 Urine Comment 07/01/24 11:20 Fluid Comment 07/01/24 Unknown CSF Appearance Clear 07/01/24 Unknown CSF Color Colorless 07/01/24 Unknown Xanthrochromic No xanthochromia 07/01/24 Unknown CSF WBC 205 (0-5) H* 07/01/24 Unknown CSF RBC 1 (0) 07/01/24 Unknown CSF Cell Count Tube # 3 07/01/24 Unknown CSF Mononuclear WBCs % 96 % 07/01/24 Unknown CSF Polynuclear WBCs % 4 % 07/01/24 Unknown CSF Chemistry Tube # 1 07/01/24 Unknown CSF Glucose 37 mg/dl (40-70) L 07/01/24 Unknown CSF Lactate 25.9 mg/dL (10-22) H 07/01/24 Unknown CSF Total Protein 75.8 mg/dl (15-45) H 07/01/24 Unknown CSF C.neoform/gat PCR Not Detected (NotDetected) 07/01/24 Unknown CSF CMV DNA (PCR) Not Detected (NotDetected) 07/01/24 Unknown CSF Enterovirus (PCR) Not Detected (NotDetected) 07/01/24 Unknown CSF E. coli K1 (PCR) Not Detected (NotDetected) 07/01/24 Unknown CSF H. influenzae (PCR) Not Detected (NotDetected) 07/01/24 Unknown CSF HSV I (PCR) Not Detected (NotDetected) 07/01/24 Unknown CSF HSV II (PCR) Not Detected (NotDetected) 07/01/24 Unknown CSF HHV 6 (PCR) Not Detected (NotDetected) 07/01/24 Unknown CSF L.monocytogenes PCR Not Detected (NotDetected) 07/01/24 Unknown CSF N. meningitidis PCR Not Detected (NotDetected) 07/01/24 Unknown CSF Parechovirus (PCR) Not Detected (NotDetected) 07/01/24 Unknown CSF S. agalactiae (PCR) Not Detected (NotDetected) 07/01/24 Unknown CSF S. pneumoniae (PCR) Not Detected (NotDetected) 07/01/24 Unknown CSF VZV DNA (PCR) DETECTED (NotDetected) A* 07/01/24 Unknown CSF West Nile RNA NOT DETECTED (NOT DETECTED) 07/01/24 Unknown Random Vancomycin 10.8 mcg/ml (10-20) 07/02/24 11:57 Urine Opiates Screen Neg (Neg) 07/01/24 11:20 Ur Methadone, Qual Neg (Neg) 07/01/24 11:20 Urine Fentanyl Screen Neg (Neg) 07/01/24 11:20 Urine Barbiturates Neg (Neg) 07/01/24 11:20 Ur Phencyclidine (PCP) Neg (Neg) 07/01/24 11:20 U Amphetamin/Meth Scrn Neg (Neg) 07/01/24 11:20 MDMA (Ecstasy) Screen Neg (Neg) 07/01/24 11:20 U Benzodiazepines Scrn Neg (Neg) 07/01/24 11:20 Ur Cocaine Metabolite Neg (Neg) 07/01/24 11:20 U Marijuana (THC) Screen Neg (Neg) 07/01/24 11:20 Lyme Disease Screen Negative (Negative) 07/01/24 12:17 West Nile Virus Source CSF 07/01/[address] 07/01/24 11:04 CT head/brain wo con CLINICAL HISTORY: 44 years-old Female with morse. Acute headache TECHNIQUE: Multiple axial CT images of the head were obtained without contrast. A dose lowering technique was utilized adhering to the principles of ALARA. CT DOSE: 580.53 mGy.cm COMPARISON: None. FINDINGS: No acute intracranial hemorrhage, midline shift, intracranial mass, hydrocephalus, territorial ischemia or abnormal extra-axial collection. Involutional changes. The calvarium is intact. The paranasal sinuses, mastoid air cells, and middle ear cavities are clear. IMPRESSION: No acute intracranial abnormality. ACT 112: Negative or not required by law. The above report was generated using voice recognition software. It may contain grammatical, syntax or spelling errors. Electronically signed by: Ruben Márquez M.D. 07/01/2024 11:47 AM Lumbar Puncture 07/01/24 14:26 LUMBAR PUNCTURE UNDER FLUOROSCOPY CLINICAL HISTORY: Headache; fever PROCEDURE: Procedure and risks were explained. Informed consent was obtained. A final timeout was completed. The patient was placed prone on the fluoroscopic exam table. The lower lumbar region was prepped and draped in sterile fashion. 1% lidocaine was utilized for skin anesthesia. Utilizing fluoroscopic guidance, a 22-gauge Sprotte spinal needle was advanced into the intrathecal space at the L2-3 disc space level. Fluoroscopic spot images were obtained Approximately 8 mL of clear CSF fluid was removed and sent to lab for analysis. The needle was removed and Band-Aid applied. The patient tolerated the procedure well. Vital signs will be monitored postprocedure. Fluoroscopy time 3 seconds. Study dosed 5.15 mGy. IMPRESSION: Lumbar puncture as above. Performed, dictated, and signed by Isac Murillo PA-C; to be co-signed by Dr. Zhang Cazares. Electronically signed by: Zhang Cazares M.D. 07/01/2024 4:[address] PM [address] Tissue Neck CT 07/04/24 12:29 CT soft tissue neck w con HISTORY: 44 years-old Female Neck pain acute neck pain COMPARISON: Head CT 07/01/2024, ultrasound 03/02/2022 TECHNIQUE: Multiple axial CT images of the soft tissues of the neck were obtained with IV contrast. A dose lowering technique was used consistent with the principals of KATYA. FINDINGS: Clear lung apices. Unremarkable vascular structures of the neck. The imaged intracranial structures are unremarkable. Cervical chain lymph nodes measure up to 8-9 mm which are nonspecific, favored to be benign. The airway appears patent. The paravertebral fat planes are symmetric and well-preserved. No peritonsillar abscess or suspicious soft tissue mass. The parotid and submandibular glands appear normal. No thyroid lesion identified. Normal glottis. Multilevel degenerative changes of the cervical spine. Paranasal sinuses and the mastoid air cells appear clear. IMPRESSION: 1. No acute inflammatory process. 2. Borderline enlarged cervical chain lymph nodes, likely benign. ACT 112: Negative or not required by law. The above report was generated using voice recognition software. It may contain grammatical, syntax or spelling errors. Electronically signed by: Ruben Márquez M.D. 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 Varicella zoster meningitis/encephalitis Patient underwent LP on 07/01 which revealed pleocytosis, elevated protein, and varicella zoster consistent with viral meningitis Discontinued IV ampicillin, decadron, vancomycin, ceftriaxone Infectious disease evaluated: recommending 14 days of IV acyclovir q8hr (end date 07/16/2024) -Blood cultures negative to date -CSF cultures preliminary negative -Autoimmune workup, EBV, West Nile pending Continue IV acyclovir per ID recommendations Plan to be discharged home today Shingles rash Improving Continue IV acyclovir as above Cervical lymphadenopathy --CT Neck:No acute inflammatory process. Borderline enlarged cervical chain l ymph nodes, likely benign. 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 DVT Px: SQ Lovenox Code Status: FULL CODE Disposition: Home Total Time Total Time Spent Total Time Spent (In Minutes): 47 minutes Discharge Plan Discharge Items Patient Disposition: Home - Home Health Services Reason For Visit: REFRACTORY NAUSEA/VOMITING Discharge Diagnosis: Meningitis due to herpes zoster virus Cervical lymphadenopathy Hypokalemia Hypomagnesemia Left ovarian cyst Condition on Discharge: Good Activity: Resume your previous activity Exercise/Sports: Wait until after follow-up appointment Non-emergency contact: 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 You were treated with IV fluids and IV antiviral medication, which greatly improved your symptoms and shingles rash. We consulted with our Infectious Disease doctors who recommended IV acyclovir every 8 hours for a total of 14 days (end date 07/16/2024). We placed an ultrasound guided IV so that you can receive this medicine at home. [facility] Home Health will be coming starting on Saturday to administer your IV acyclovir. You were found to have low potassium and magnesium levels in the hospital. We recommend taking a potassium and magnesium supplement at home. Please ask your PCP to order labs (complete blood count, basic metabolic panel, magnesium level) at your follow up appointment to monitor these levels in 1 week. MEDICATION CHANGES: -IV acyclovir 700mg every 8 hours until 07/16/2024 - Augmentin 875/125 mg twice a day PENDING TEST RESULTS: We did a lot of testing for various causes of infection with a few labs still pending final results: -CSF culture (prelim no growth) -CSF smear and fungal culture -Autoimmune labs -Elliot Egan Virus labs -West Nile labs -Blood cultures (prelim no growth) RECOMMENDATIONS FOR FOLLOW-UP: Please follow up with your PCP as scheduled on 07/09/2024 at 12:00pm to discuss your hospitalization. Also recommend discussing with them about your potassium and magnesium supplements and ask them to order labs to monitor these levels. You were given a work excuse to excuse you until your PCP appointment. We will defer to your PCP on when you should return to work and for any FMLA/short term disability paperwork needs. OTHER INSTRUCTIONS: Seek medical attention if you have: * temperature above 101 * chest pain or trouble breathing * abdominal pain, nausea, vomiting * diarrhea, dark stools or bloody stools * any unanswered questions or concerns Call 911 if symptoms are severe. It has been a pleasure taking care of you. Please take care of yourself. If you have any questions regarding your recent hospitalization please contact [facility] and request benny Garciaist @ [phone]. 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 Felicia Wolff as needed --Obtain repeat CT neck in 4-6 weeks to ensure resolution of lymphadenopathy. Discuss with your primary care physician for further instructions. -- Complete the antibiotic course Augmentin as prescribed. If repeat CT showed persistent lymphadenopathy, you may need need further workup as outpatient. Seek immediate medical attention if your symptoms reoccur or worsen Please review medication list provided on discharge for any medication changes as instructed. Please call if you have any questions or problems. You can reach a [facility] hospitalist on duty at [facility] 24 hours a day by calling [phone] Pending Studies at Discharge: Yes Studies:: -CSF culture (prelim no growth) -CSF smear and fungal culture -Autoimmune labs -Elliot Egan Virus labs -West Nile labs -Blood cultures (prelim no growth) Stand-Alone Forms: My [facility], Work/School Release, Smoking Cessation Medications and DC Order Prescriptions: New acyclovir sodium 1,000 mg recon soln 700 mg IV Q8H Qty: 1 0RF Rx Instructions: (end date 07/16/2024) amoxicillin-pot clavulanate 875-125 mg Tablet 1 tab PO BIDM Qty: 12 0RF Advanced Probiotic 625 mg (10 billion cell) Capsule 1 cap PO DAILY Qty: 10 0RF Continued ondansetron 4 mg tablet,disintegrating 4 mg translingual Q8H PRN (Reason: Nausea And Vomiting) Qty: 15 0RF Discharge Orders: Discharge Order (Routine); Ordered 07/05/24 Ordered By: Juancarlos Rodriguez Admission Data Admit Date/Time: 07/01/24 14:29 Attending Provider: Juancarlos Rodriguez Admit Provider: Alhaji Barksdale Primary Care Provider: Tamara Bliss Other Providers: Naye Eric; Omari Moseley; Suzette Rice; Felicia Wolff; Adria Gallagher; Rios Story; Darien Fraga; Rhina Amaya; Cristofer Lo; [facility]
[2024-07-05 12:38] VITALS: BP 115/77; PULSE 71
[2024-07-05 15:12] LABS: EBV DNA Quant PCR Not Detected copies/mL; EBV DNA Quant Source CSF; EBV DNA, Quant Log Not Detected Log cps/mL
[2024-07-05 17:59] LABS: CSF, LDH 31 U/L (<=25); VDRL Qualitative CSF Nonreactive (Nonreactive)
[2024-07-09 01:27] LABS: ANCA Screen Negative (Negative); Anti Cardiolipin Ab IgG <2.0 GPL-U/mL; Anti Cardiolipin Ab IgM <2.0 MPL-U/mL; Anti Nuclear Antibody Screen NEGATIVE (NEGATIVE); Anti-Centromere Ab <1.0 NEG AI (<1.0 NEG); Anti-SS-A <1.0 NEG AI (<1.0 NEG); Anti-SS-B <1.0 NEG AI (<1.0 NEG); Chromatin Antibody <1.0 NEG AI (<1.0 NEG); Complement C3 168 mg/dL (83-193); DNA ds Crithidia POSITIVE (NEGATIVE); Microsomal Ab <1 IU/mL (<9); RNP Antibody <1.0 NEG AI (<1.0 NEG); Sm Antibody <1.0 NEG AI (<1.0 NEG)
== END 2024-07-05 13:14 | disposition home health service (06) | DRG 75 ==
LOC: ED 10:43 → 3N 14:29 → SUATTDRO 14:29 → 3N 18:00